=== PATIENT | male | born 1975 | race African-American/Black ===

== ENCOUNTER 2017-10-16 17:10 | Inpatient (IN) | payer OTHER ==
[2017-10-16 18:36] VITALS: BMI 31.8
--- NOTE | 2017-10-16 20:30 | HP ---
CIWA Score - CIWA Score Nausea/Vomitin-Mild Nausea/No Vomiting Muscle Tremors: 4-Moderate,w/Arms Extend Anxiety: 4-Mod. Anxious/Guarded Agitation: 3 Paroxysmal Sweats: 3 Orientation: 1-Uncertain about Date Tacttile Disturbances: 2-Mild Itch/Numbness/Burn Auditory Disturbances: 0-None Visual Disturbances: 0-None Headache: 3-Moderate CIWA-Ar Total Score: 21 Admission ROS BHS - HPI Chief Complaint: C/O WITHDRAWAL SX'S. SEEKING DETOX FOR ALCOHOLISM Allergies/Adverse Reactions: Allergies Allergy/AdvReac Type Severity Reaction Status Date / Time No Known Allergies Allergy Verified 10/16/17 19:14 History of Present Illness: 42 Y.O. MALE WITH LONG HX/O POLYSUBSTANCE DEPENDENCE HERE FOR DETOX FOR ALCOHOLISM. CLIENT IS KNOWN TO THIS PROGRAM. LAST HERE 2009. HE IS SELF REFERRED. REPORTS LONGEST CLEAN TIME 3 YEARS. DENIES SI/HI AND A/V HALLUCINATIONS. PMHX: DENIES MENTAL HEALTH: DENIES Exam Limitations: No Limitations - Ebola screening Have you traveled outside of the country in the last 21 days: No Have you had contact with anyone from an Ebola affected area: No Have you been sick,other than usual withdrawal symptoms: No Do you have a fever: No - Review of Systems Constitutional: Chills, Loss of Appetite, Night Sweats, Changes in sleep EENT: reports: No Symptoms Reported Respiratory: reports: No Symptoms reported Cardiac: reports: No Symptoms Reported GI: reports: Constipated, Nausea, Poor Appetite, Poor Fluid Intake, Abdominal cramping : reports: No Symptoms Reported Musculoskeletal: reports: No Symptoms Reported Integumentary: reports: No Symptoms Reported Neuro: reports: Headache Endocrine: reports: No Symptoms Reported Hematology: reports: No Symptoms Reported Psychiatric: reports: Anxious, Depressed Other Systems: Reviewed and Negative Patient History - Patient Medical History Hx Anemia: No Hx Asthma: No Hx Chronic Obstructive Pulmonary Disease (COPD): No Hx Cancer: No Hx Cardiac Disorders: No Hx Congestive Heart Failure: No Hx Hypertension: No Hx Hypercholesterolemia: No Hx Pacemaker: No HX Cerebrovascular Accident: No Hx Seizures: No Hx Dementia: No Hx Diabetes: No Hx Gastrointestinal Disorders: No Hx Liver Disease: No Hx Genitourinary Disorders: No Hx Sexually Transmitted Disorders: No Hx Renal Disease (ESRD): No Hx Thyroid Disease: No Hx Human Immunodeficiency Virus (HIV): No Hx Hepatitis C: No Hx Depression: No Hx Suicide Attempt: No Hx Bipolar Disorder: No Hx Schizophrenia: No Other Medical History: DENIES - Patient Surgical History Past Surgical History: No Hx Neurologic Surgery: No Hx Cataract Extraction: No Hx Cardiac Surgery: No Hx Lung Surgery: No Hx Breast Surgery: No Hx Breast Biopsy: No Hx Abdominal Surgery: No Hx Appendectomy: No Hx Cholecystectomy: No Hx Genitourinary Surgery: No Hx Section: No Hx Orthopedic Surgery: No Hx Hysterectomy: No Anesthesia Reaction: No - PPD History Previous Implant?: Yes Documented Results: Negative w/proof Implanted On Prior [facility] Admission?: Yes PPD to be Administered?: Yes - Smoking Cessation Smoking history: Current some day smoker Have you smoked in the past 12 months: Yes Aproximately how many cigarettes per day: 20 Cigars Per Day: 0 Hx Chewing Tobacco Use: No Initiated information on smoking cessation: Yes 'Breaking Loose' booklet given: 10/16/17 - Substance & Tx. History Hx Alcohol Use: Yes Hx Substance Use: Yes Substance Use Type: Alcohol, Cocaine, Heroin Hx Substance Use Treatment: Yes ([facility]) - Substances Abused Alcohol Route: Oral Frequency: Daily Amount used: 1/5 VODKA, 2 6 PACKS BEER Age of first use: 17 Date of Last Use: 10/16/17 Marijuana/Hashish Route: Smoking Frequency: Daily Amount used: $60 Age of first use: 17 Date of Last Use: 10/16/17 Cocaine Route: Inhalation Frequency: Daily Amount used: $100 Age of first use: 17 Date of Last Use: 10/16/17 Family Disease History - Family Disease History Family History: Denies Admission Physical Exam [facility] - Vital Signs Vital Signs: Vital Signs - 24 hr 10/16/17 18:34 Temperature 98.9 F Pulse Rate 103 H Respiratory 18 Rate Blood Pressure 139/83 - Physical General Appearance: Yes: Appropriately Dressed, Mild Distress, Tremorous, Sweating, Anxious HEENTM: Yes: EOMI, Normocephalic, Normal Voice, AUSTYN, Pharynx Normal Respiratory: Yes: Chest Non-Tender, Lungs Clear, Normal Breath Sounds, No Respiratory Distress, No Accessory Muscle Use Neck: Yes: No masses,lesions,Nodules, Trachea in good position Breast: Yes: Breast Exam Deferred Cardiology: Yes: Regular Rhythm, Regular Rate, S1, S2 Abdominal: Yes: Normal Bowel Sounds, Non Tender, Flat, Soft Genitourinary: Yes: Within Normal Limits Back: Yes: Normal Inspection Musculoskeletal: Yes: full range of Motion, Gait Steady Extremities: Yes: Normal Capillary Refill, Normal Range of Motion, Non-Tender, Tremors Neurological: Yes: Fully Oriented, Alert, Motor Strength 5/5 Integumentary: Yes: Normal Color, Warm, Moist Lymphatic: Yes: Within Normal Limits - Diagnostic (1) Alcohol dependence with uncomplicated withdrawal Current Visit: Yes Status: Acute (2) Cocaine abuse, uncomplicated Current Visit: Yes Status: Chronic (3) Cannabis abuse, uncomplicated Current Visit: Yes Status: Chronic (4) Nicotine dependence Current Visit: Yes Status: Chronic Qualifiers: Nicotine product type: cigarettes Substance use status: uncomplicated Qualified Code(s): F17.210 - Nicotine dependence, cigarettes, uncomplicated (5) Substance induced mood disorder Current Visit: Yes Status: Suspected (6) Recent bereavement Current Visit: Yes Status: Acute Comment: RECENTLY LOST Cleared for Admission [facility] - Detox or Rehab [facility] Level of Care: Medically Managed Detox Regimen/Protocol: Librium Claeared for Rehab Admission: No [facility] Breath Alcohol Content Breath Alcohol Content: 0 Urine Drug Screen - Results Drug Screen Negative: No Urine Drug Screen Results: KATINA-Cocaine
[2017-10-16] MEDS ORDERED: MAGNESIUM CITRATE 300 ML BOTTLE PO PRN (20:46)
[2017-10-16] MEDS ORDERED: LOPERAMIDE HCL 2 MG CAPSULE PO PRN (20:46)
[2017-10-16] MEDS ORDERED: P-EPHED 60MG/TRIPROLIDI 2.5MG TABLET PO PRN (20:46)
[2017-10-16] MEDS ORDERED: MENTHOL/PHENOL 1 EACH UD MM PRN (20:46)
[2017-10-16] MEDS ORDERED: MAGNESIUM HYDROX 2400MG/30ML ORAL SUSPENSION 30 ML CUP PO PRN (20:46)
[2017-10-16] MEDS ORDERED: chlordiazePOXIDE HCL 25 MG CAPSULE PO PRN (20:46)
[2017-10-16] MEDS ORDERED: ACETAMINOPHEN 325 MG TABLET (FP) PO PRN (20:46)
[2017-10-16] MEDS ORDERED: guaiFENesin/D-METHORPHAN HB 10 ML UNIT-DOSE CUPS PO PRN (20:46)
[2017-10-16] MEDS ORDERED: NICOTINE POLACRILEX 2 MG GUM BC PRN (20:46)
[2017-10-16] MEDS ORDERED: IBUPROFEN 400 MG TABLET (FP) PO PRN (20:46)
[2017-10-16] MEDS ORDERED: MAG HYDROX/AL HYDROX/SIMETH 30 ML UNIT-DOSE CUP PO PRN (20:46)
[2017-10-16] MEDS: THIAMINE HCL 100 MG TABLET (FP) PO SCH (22:16)
[2017-10-16] MEDS: chlordiazePOXIDE HCL 25 MG CAPSULE PO SCH (22:17)
[2017-10-16] MEDS: MELATONIN 5 MG TABLETS PO PRN (22:21)
[2017-10-16 22:43] LABS: URINE APPEARANCE SLCLOUDY; URINE BILIRUBIN NEGATIVE (<2.0 mg/dL); URINE COLOR DKYELLOW; URINE GLUCOSE (UA) NEGATIVE (NEGATIVE); URINE KETONE TRACE (NEGATIVE); URINE LEUK ESTERASE TRACE (NEGATIVE); URINE NITRITE NEGATIVE (NEGATIVE); URINE PROTEIN 1+ (NEGATIVE); URINE UROBILINOGEN 4.0 E.U/dl mg/dL (0.2-1.0)
[2017-10-16 22:57] LABS: URINE HYALINE CAST 8 /lpf; URINE MUCUS MANY
[2017-10-17] MEDS: chlordiazePOXIDE HCL 25 MG CAPSULE PO SCH ×4 (06:44→23:02)
[2017-10-17 09:36] LABS: ALK PHOS 73 U/L (45-117); ANION GAP 8 (8-16); BILIRUBIN,TOTAL 0.5 mg/dL (0.2-1.0); BLOOD UREA NITROGEN 13 mg/dL (7-18); CALCIUM 8.2 mg/dL (8.5-10.1); CHLORIDE 107 mmol/L (98-107); CO2 28 mmol/L (21-32); CREATININE 1.3 mg/dL (0.7-1.3); GLUCOSE,RANDOM 101 mg/dL (74-106); HEMATOCRIT 40.9 % (35.4-49); HEMOGLOBIN 13.3 GM/dL (11.7-16.9); MCH 27.1 pg (25.7-33.7); MCHC 32.5 g/dl (32.0-35.9); MEAN CELL VOLUME 83.4 fl (80-96); MEAN PLT VOLUME 7.8 fl (7.5-11.1); PLATELET COUNT 238 K/MM3 (134-434); POTASSIUM 3.8 mmol/L (3.5-5.1); RBC 4.91 M/mm3 (4.00-5.60); RDW 15.3 % (11.9-15.9); SGOT/AST 17 U/L (15-37); SGPT/ALT 18 U/L (12-78); SODIUM 143 mmol/L (136-145); WHITE BLOOD COUNT 7.4 K/mm3 (4.0-10.0)
--- NOTE | 2017-10-17 10:06 | EKG ---
Test Reason : Blood Pressure : / mmHG Vent. Rate : 082 BPM Atrial Rate : 082 BPM P-R Int : 180 ms QRS Dur : 094 ms QT Int : 410 ms P-R-T Axes : 079 036 054 degrees QTc Int : 479 ms NORMAL SINUS RHYTHM NORMAL ECG NO PREVIOUS ECGS AVAILABLE Confirmed by AZUL ELI, ALLISON ([id number]) on 10/17/2017 10:06:12 AM Referred By: Kade Dowling Confirmed By:ALLISON LIANG MD
--- NOTE | 2017-10-17 10:37 | CONSULT ---
[facility] Psychiatric Consult - Data Date of interview: 10/17/17 Admission source: [facility] Identifying data: Mr Wilburn is a 42 years old Black male, father of an 18 years old daughter, unemployed, living with family seeking detox treatment for alcohol, cocaine and cannabis Substance Abuse History: Reports history of alcohol, cocaine and marijuana use. Refer to addiction counselor's summary for further information Medical History: Unremarkable. Smokes cigarettes 1 ppd Psychiatric History: Denies history of previous psychiatric treatment. However, reports feeling very depressed due to recent of his . He was crying during the interview while narrating how of a heart attack in her sleep Physical/Sexual Abuse/Trauma History: Denies history of emotional, physical or sexual abuse as wel as DV relationship. Additional Comment: Patient was reluctant to provide legal history Mental Status Exam - Mental Status Exam Alert and Oriented to: Time, Place, Person Patient Appearance: Well Groomed Mood: Depressed Affect: Appropriate Patient Behavior: Cooperative Speech Pattern: Clear, Artificially Ventilated Thought Process: Intact, Goal Oriented Thought Disorder: Not Present Hallucinations: Denies Suicidal Ideation: Denies Homicidal Ideation: Denies Insight/Judgement: Fair Sleep: Poorly Appetite: Good Muscle strength/Tone: Normal Gait/Station: Normal Psychiatric Findings - Problem List ([place] 1, 2,3) (1) Substance induced mood disorder Current Visit: Yes Status: Acute (2) Substance-induced sleep disorder Current Visit: Yes Status: Acute (3) Alcohol dependence with uncomplicated withdrawal Current Visit: Yes Status: Acute (4) Cocaine dependence Current Visit: Yes Status: Acute (5) Cannabis dependence Current Visit: Yes Status: Acute (6) Nicotine dependence Current Visit: Yes Status: Chronic Qualifiers: Nicotine product type: cigarettes Substance use status: uncomplicated Qualified Code(s): F17.210 - Nicotine dependence, cigarettes, uncomplicated (7) Recent bereavement Current Visit: Yes Status: Acute Comment: RECENTLY LOST - Initial Treatment Plan Initial Treatment Plan: 1) Psychotherapy and grief counseling provided to patient. 2) Start Ambien 10 mg po HS prn for insomnia. Benefits vs Risks of medication discussed with patient and he agreed to try it. 3) Continue inpatient detoxification
[2017-10-17] MEDS: NICOTINE 21 MG/24 HOURS TOPICAL PATCH TD SCH (11:24)
[2017-10-17] MEDS: PRENATAL VITAMINS W/ FOLIC ACID TABLET (FP) PO SCH (11:24)
--- NOTE | 2017-10-17 12:04 | PN ---
S CIWA - CIWA Score Nausea/Vomitin Muscle Tremors: 3 Anxiety: 3 Agitation: 3 Paroxysmal Sweats: 1-Minimal Palms Moist Orientation: 0-Oriented Tacttile Disturbances: 1-Very Mild Itch/Numbness Auditory Disturbances: 1-Very Mild Visual Disturbances: 0-None Headache: 2-Mild CIWA-Ar Total Score: 17 BHS Progress Note (SOAP) Subjective: alert,irritable,anxious,interrupted sleep,tremor,pain in body Objective: 10/17/17 12:04 Vital Signs Temperature 97.2 F L 10/17/17 09:05 Pulse Rate 75 10/17/17 09:05 Respiratory Rate 16 10/17/17 09:05 Blood Pressure 136/65 10/17/17 09:05 O2 Sat by Pulse Oximetry (%) ekg nsr,normal ecg qt 410/479 Laboratory Last Values WBC 7.4 K/mm3 (4.0-10.0) 10/17/17 07:45 RBC 4.91 M/mm3 (4.00-5.60) 10/17/17 07:45 Hgb 13.3 GM/dL (11.7-16.9) 10/17/17 07:45 Hct 40.9 % (35.4-49) 10/17/17 07:45 MCV 83.4 fl (80-96) 10/17/17 07:45 MCH 27.1 pg (25.7-33.7) 10/17/17 07:45 MCHC 32.5 g/dl (32.0-35.9) 10/17/17 07:45 RDW 15.3 % (11.9-15.9) 10/17/17 07:45 Plt Count 238 K/MM3 (134-434) 10/17/17 07:45 MPV 7.8 fl (7.5-11.1) 10/17/17 07:45 Sodium 143 mmol/L (136-145) 10/17/17 07:45 Potassium 3.8 mmol/L (3.5-5.1) 10/17/17 07:45 Chloride 107 mmol/L (98-107) 10/17/17 07:45 Carbon Dioxide 28 mmol/L (21-32) 10/17/17 07:45 Anion Gap 8 (8-16) 10/17/17 07:45 BUN 13 mg/dL (7-18) 10/17/17 07:45 Creatinine 1.3 mg/dL (0.7-1.3) 10/17/17 07:45 Creat Clearance w eGFR > 60 (>60) 10/17/17 07:45 Random Glucose 101 mg/dL (74-106) 10/17/17 07:45 Calcium 8.2 mg/dL (8.5-10.1) L 10/17/17 07:45 Total Bilirubin 0.5 mg/dL (0.2-1.0) 10/17/17 07:45 AST 17 U/L (15-37) 10/17/17 07:45 ALT 18 U/L (12-78) 10/17/17 07:45 Alkaline Phosphatase 73 U/L (45-117) 10/17/17 07:45 Total Protein 6.0 g/dl (6.4-8.2) L 10/17/17 07:45 Albumin 3.0 g/dl (3.4-5.0) L 10/17/17 07:45 Urine Color Dkyellow 10/16/17 22:20 Urine Appearance Slcloudy 10/16/17 22:20 Urine pH 5.0 (5.0-8.0) 10/16/17 22:20 Ur Specific [place] 1.021 (1.001-1.035) 10/16/17 22:20 Urine Protein 1+ (NEGATIVE) H 10/16/17 22:20 Urine Glucose (UA) Negative (NEGATIVE) 10/16/17 22:20 Urine Ketones Trace (NEGATIVE) H 10/16/17 22:20 Urine Blood Negative (NEGATIVE) 10/16/17 22:20 Urine Nitrite Negative (NEGATIVE) 10/16/17 22:20 Urine Bilirubin Negative (<2.0 mg/dL) 10/16/17 22:20 Urine Urobilinogen 4.0 e.u/dl mg/dL (0.2-1.0) 10/16/17 22:20 Ur Leukocyte Esterase Trace (NEGATIVE) 10/16/17 22:20 Urine WBC (Auto) 11 /hpf (3-5) 10/16/17 22:20 Urine RBC (Auto) 2 /hpf (0-3) 10/16/17 22:20 Hyaline Casts 8 /lpf 10/16/17 22:20 Urine Mucus Many 10/16/17 22:20 Assessment: 10/17/17 12:06 withdrawal symptom Plan: continue detox,repeat ua
[2017-10-17] MEDS: THIAMINE HCL 100 MG TABLET (FP) PO SCH (23:01)
[2017-10-18] MEDS: chlordiazePOXIDE HCL 25 MG CAPSULE PO SCH ×3 (06:30→18:26)
--- NOTE | 2017-10-18 11:14 | PN ---
S CIWA - CIWA Score Nausea/Vomitin Muscle Tremors: 3 Anxiety: 3 Agitation: 2 Paroxysmal Sweats: 1-Minimal Palms Moist Orientation: 0-Oriented Tacttile Disturbances: 1-Very Mild Itch/Numbness Auditory Disturbances: 1-Very Mild Visual Disturbances: 0-None Headache: 2-Mild CIWA-Ar Total Score: 16 BHS Progress Note (SOAP) Subjective: ALERT,IRRITABLE,ANXIOUS,INTERRUPTED SLEEP,PAIN IN THE BODY Objective: 10/18/17 11:12 Vital Signs Temperature 97.9 F 10/18/17 09:13 Pulse Rate 83 10/18/17 09:13 Respiratory Rate 16 10/18/17 09:13 Blood Pressure 123/93 10/18/17 09:13 O2 Sat by Pulse Oximetry (%) Vital Signs Temperature 97.9 F 10/18/17 09:13 Pulse Rate 83 10/18/17 09:13 Respiratory Rate 16 10/18/17 09:13 Blood Pressure 123/93 10/18/17 09:13 O2 Sat by Pulse Oximetry (%) Laboratory Last Values WBC 7.4 K/mm3 (4.0-10.0) 10/17/17 07:45 RBC 4.91 M/mm3 (4.00-5.60) 10/17/17 07:45 Hgb 13.3 GM/dL (11.7-16.9) 10/17/17 07:45 Hct 40.9 % (35.4-49) 10/17/17 07:45 MCV 83.4 fl (80-96) 10/17/17 07:45 MCH 27.1 pg (25.7-33.7) 10/17/17 07:45 MCHC 32.5 g/dl (32.0-35.9) 10/17/17 07:45 RDW 15.3 % (11.9-15.9) 10/17/17 07:45 Plt Count 238 K/MM3 (134-434) 10/17/17 07:45 MPV 7.8 fl (7.5-11.1) 10/17/17 07:45 Sodium 143 mmol/L (136-145) 10/17/17 07:45 Potassium 3.8 mmol/L (3.5-5.1) 10/17/17 07:45 Chloride 107 mmol/L (98-107) 10/17/17 07:45 Carbon Dioxide 28 mmol/L (21-32) 10/17/17 07:45 Anion Gap 8 (8-16) 10/17/17 07:45 BUN 13 mg/dL (7-18) 10/17/17 07:45 Creatinine 1.3 mg/dL (0.7-1.3) 10/17/17 07:45 Creat Clearance w eGFR > 60 (>60) 10/17/17 07:45 Random Glucose 101 mg/dL (74-106) 10/17/17 07:45 Calcium 8.2 mg/dL (8.5-10.1) L 10/17/17 07:45 Total Bilirubin 0.5 mg/dL (0.2-1.0) 10/17/17 07:45 AST 17 U/L (15-37) 10/17/17 07:45 ALT 18 U/L (12-78) 10/17/17 07:45 Alkaline Phosphatase 73 U/L (45-117) 10/17/17 07:45 Total Protein 6.0 g/dl (6.4-8.2) L 10/17/17 07:45 Albumin 3.0 g/dl (3.4-5.0) L 10/17/17 07:45 Urine Color Dkyellow 10/16/17 22:20 Urine Appearance Slcloudy 10/16/17 22:20 Urine pH 5.0 (5.0-8.0) 10/16/17 22:20 Ur Specific [place] 1.021 (1.001-1.035) 10/16/17 22:20 Urine Protein 1+ (NEGATIVE) H 10/16/17 22:20 Urine Glucose (UA) Negative (NEGATIVE) 10/16/17 22:20 Urine Ketones Trace (NEGATIVE) H 10/16/17 22:20 Urine Blood Negative (NEGATIVE) 10/16/17 22:20 Urine Nitrite Negative (NEGATIVE) 10/16/17 22:20 Urine Bilirubin Negative (<2.0 mg/dL) 10/16/17 22:20 Urine Urobilinogen 4.0 e.u/dl mg/dL (0.2-1.0) 10/16/17 22:20 Ur Leukocyte Esterase Trace (NEGATIVE) 10/16/17 22:20 Urine WBC (Auto) 11 /hpf (3-5) 10/16/17 22:20 Urine RBC (Auto) 2 /hpf (0-3) 10/16/17 22:20 Hyaline Casts 8 /lpf 10/16/17 22:20 Urine Mucus Many 10/16/17 22:20 RPR Titer Nonreactive (NONREACTIVE) 10/17/17 07:45 Assessment: 10/18/17 11:13 WITHDRAWAL SYMPTOM Plan: CONTINUE DETOX,PSYCHIATRIC EVALUATION FOR INSOMNIA
[2017-10-18] MEDS: NICOTINE 21 MG/24 HOURS TOPICAL PATCH TD SCH (13:15)
[2017-10-18] MEDS: PRENATAL VITAMINS W/ FOLIC ACID TABLET (FP) PO SCH (13:15)
[2017-10-18] MEDS: hydrOXYzine PAMOATE 50 MG CAPSULE (FP) PO PRN (13:15)
[2017-10-18] MEDS: chlordiazePOXIDE 5 MG CAPSULE PO SCH (22:04)
[2017-10-18] MEDS: THIAMINE HCL 100 MG TABLET (FP) PO SCH (22:04)
[2017-10-18] MEDS: MELATONIN 5 MG TABLETS PO PRN (22:05)
[2017-10-19] MEDS: chlordiazePOXIDE 5 MG CAPSULE PO SCH ×3 (05:11→18:52)
--- NOTE | 2017-10-19 09:48 | PN ---
S Progress Note (SOAP) Subjective: ALERT,IRRITABLE,ANXIOUS,INTERRUPTED SLEEP Objective: 10/19/17 09:55 Vital Signs Temperature 97.2 F L 10/19/17 05:53 Pulse Rate 74 10/19/17 05:53 Respiratory Rate 18 10/19/17 05:53 Blood Pressure 148/98 10/19/17 05:53 O2 Sat by Pulse Oximetry (%) Assessment: 10/19/17 10:03 WITHDRAWAL SYMPTOM Plan: CONTINUE DETOX,DISCHARGE IN AM
[2017-10-19] MEDS ORDERED: cloNIDine HCL 0.1 MG TABLET PO ONE ×2 (10:08→22:00)
[2017-10-19] MEDS: CYCLOBENZAPRINE HCL 10 MG TABLET (FP) PO PRN ×3 (10:41→22:33)
[2017-10-19] MEDS: PRENATAL VITAMINS W/ FOLIC ACID TABLET (FP) PO SCH (10:41)
[2017-10-19] MEDS: NICOTINE 21 MG/24 HOURS TOPICAL PATCH TD SCH (10:42)
[2017-10-19] MEDS: hydrOXYzine PAMOATE 50 MG CAPSULE (FP) PO PRN ×2 (10:42→15:41)
--- NOTE | 2017-10-19 15:10 | PN ---
Psychiatric Progress Note Vital Signs: Vital Signs Period Temp Pulse Resp BP Sys/Flores Pulse Ox Last 24 Hr 96.8 F-98.2 F 74-89 18-20 138-149/96-110 Date of Session: 10/19/17 Chief Complaint:: "I can't sleep.I cry all the time." HPI: Patient admitted to for alcohol, cocaine, and cannabis dependence. ROS: Unremarkable Current Medications: Active Medications Generic Name Dose Route Start Last Admin Trade Name Freq PRN Reason Stop Dose Admin Acetaminophen 650 mg 10/16/17 20:46 Tylenol - PO Q4H PRN FEVER Al Hydroxide/Mg Hydroxide 30 ml 10/16/17 20:46 10/17/17 11:24 Mylanta Oral Suspension - PO 30 ml Q6H PRN Administration DYSPEPSIA Chlordiazepoxide HCl 15 mg 10/18/17 23:00 10/19/17 10:41 Librium - PO 10/19/17 17:01 15 mg [id number] QUINTEN Administration Chlordiazepoxide HCl 25 mg 10/16/17 20:46 Librium - PO 10/19/17 20:45 Q4H PRN WITHDRAWAL(CONT SUBST) Chlordiazepoxide HCl 10 mg 10/19/17 23:00 Librium - PO 10/20/17 17:01 [id number] QUINTEN Cyclobenzaprine HCl 10 mg 10/18/17 08:42 10/19/17 10:41 Flexeril - PO 10 mg TID PRN Administration MUSCLE SPASMS Eucalyptus/Menthol/Phenol/Sorbitol 1 each 10/16/17 20:46 Cepastat Lozenge - MM Q4H PRN SORE THROAT Guaifenesin 10 ml 10/16/17 20:46 Robitussin Dm - PO Q6H PRN COUGH Hydroxyzine Pamoate 50 mg 10/16/17 20:46 10/19/17 10:42 Vistaril - PO 50 mg Q4H PRN Administration AGITATION Ibuprofen 400 mg 10/16/17 20:46 Motrin - PO Q6H PRN PAIN LEVEL 4-6 Loperamide HCl 4 mg 10/16/17 20:46 Imodium - PO Q6H PRN DIARRHEA Magnesium Citrate 300 ml 10/16/17 20:46 Citroma - PO Q48H PRN CONSTIPATION Magnesium Hydroxide 30 ml 10/16/17 20:46 10/16/17 22:20 Milk Of Magnesia - PO 30 ml DAILY PRN Administration CONSTIPATION Melatonin 5 mg 10/16/17 22:00 10/16/17 22:21 Melatonin PO 5 mg HS PRN Administration INSOMNIA Nicotine 21 mg 10/17/17 10:00 10/19/17 10:42 Nicoderm Patch - TD Not Given DAILY QUINTEN Nicotine Polacrilex 2 mg 10/16/17 20:46 Nicorette Gum - BC Q2H PRN NICOTINE REPLACEMENT RX Multivit/Folic Acid/Iron 1 tab 10/17/17 10:00 10/19/17 10:41 Vitamins (Sjr) - PO 1 tab DAILY QUINTEN Administration Pseudoephedrine/Triprolidine 1 combo 10/16/17 20:46 Actifed - PO TID PRN NASAL CONGESTION Thiamine HCl 100 mg 10/16/17 22:00 10/18/17 22:04 Vitamin B1 - PO 100 mg HS QUINTEN Administration Zolpidem Tartrate 10 mg 10/19/17 22:00 Ambien - PO 10/22/17 21:59 HS PRN INSOMNIA Medication(s) Change(s): Yes. Will add ambien 10mg Provider note:: Senior Net Architect spoke to patient concerning psychiatric reconsultation.Patient seen by Dr. Hamilton for initial psychiatric consultation. Note read and appreciated. Pt. presents as sad but reports feeling "ok". Patient's last week. Patient reports difficulty sleeping and constant crying. Patient's protective factors are his 18 year old daughter and his 's family. Patient reports strong social support. Psychotherapy provided. Patient denies suicidal and homicidal ideation. Will order ambien 10mg for insomnia. Pt. made aware of the risk of parasomnia. Verbal consent given. Will continue to monitor. Total face to face time:: 25 Mental Status Exam - Mental Status Exam Alert and Oriented to: Time, Place, Person Cognitive Function: Good Patient Appearance: Well Groomed Mood: Sad Affect: Mood Congruent Patient Behavior: Cooperative Speech Pattern: Appropriate Voice Loudness: Normal Thought Process: Goal Oriented Thought Disorder: Not Present Hallucinations: Denies Suicidal Ideation: Denies Homicidal Ideation: Denies Insight/Judgement: Poor Sleep: Poorly Appetite: Fair Muscle strength/Tone: Normal Gait/Station: Normal Psychiatric Treatment Plan - Problem List (1) Alcohol dependence with uncomplicated withdrawal Current Visit: Yes (2) Cannabis dependence Current Visit: Yes (3) Cocaine dependence Current Visit: Yes (4) Recent bereavement Current Visit: Yes Comment: RECENTLY LOST (5) Substance induced mood disorder Current Visit: Yes (6) Substance-induced sleep disorder Current Visit: Yes (7) Nicotine dependence Current Visit: Yes Qualifiers: Nicotine product type: cigarettes Substance use status: uncomplicated Qualified Code(s): F17.210 - Nicotine dependence, cigarettes, uncomplicated
--- NOTE | 2017-10-19 21:56 | PN ---
[facility] Progress Note Note: Patient with asymtomatic elevated BP 161/118 one time dose clonidine 0.1 mg increase fluids continue to monitor
[2017-10-19] MEDS ORDERED: ZOLPIDEM TARTRATE 10 MG TABLET (PARK CARE ONLY) PO PRN (22:00)
[2017-10-19] MEDS: THIAMINE HCL 100 MG TABLET (FP) PO SCH (22:33)
[2017-10-19] MEDS: chlordiazePOXIDE HCL 10 MG CAPSULE PO SCH (22:33)
[2017-10-20] MEDS: chlordiazePOXIDE HCL 10 MG CAPSULE PO SCH ×2 (05:45→11:07)
--- NOTE | 2017-10-20 09:02 | PN ---
S Progress Note (SOAP) Subjective: ALERT,NO COMPLAINT Objective: 10/20/17 08:58 Vital Signs Temperature 97.2 F L 10/20/17 07:25 Pulse Rate 69 10/20/17 07:25 Respiratory Rate 20 10/20/17 07:25 Blood Pressure 160/99 10/20/17 07:25 O2 Sat by Pulse Oximetry (%) Assessment: 10/20/17 08:59 DETOX COMPLETED ,NO WITHDRAWAL SYMPTOM Plan: HYDROCHLOROTHIAZIDE 25 MGS PO DAILY ,FOLLOW UP WITH AFTER CARE PROGRAM ARRANGEMENT
--- NOTE | 2017-10-20 09:09 | DS ---
[facility] Detox Discharge Summary Admission Date: 10/16/17 Discharge Date: 10/20/17 - History Present History: Alcohol Dependence, Cocaine Dependence Additional Comments: FOLLOW UP WITH AFTER CARE PROGRAM ARRANGEMENT - Physical Exam Results Vital Signs: Vital Signs Temperature 97.2 F L 10/20/17 07:25 Pulse Rate 69 10/20/17 07:25 Respiratory Rate 20 10/20/17 07:25 Blood Pressure 160/99 10/20/17 07:25 O2 Sat by Pulse Oximetry (%) Pertinent Admission Physical Exam Findings: WITHDRAWAL SIGNS AND SYMPTOM Vital Signs Temperature 97.2 F L 10/20/17 07:25 Pulse Rate 69 10/20/17 07:25 Respiratory Rate 20 10/20/17 07:25 Blood Pressure 160/99 10/20/17 07:25 O2 Sat by Pulse Oximetry (%) Laboratory Last Values WBC 7.4 K/mm3 (4.0-10.0) 10/17/17 07:45 RBC 4.91 M/mm3 (4.00-5.60) 10/17/17 07:45 Hgb 13.3 GM/dL (11.7-16.9) 10/17/17 07:45 Hct 40.9 % (35.4-49) 10/17/17 07:45 MCV 83.4 fl (80-96) 10/17/17 07:45 MCH 27.1 pg (25.7-33.7) 10/17/17 07:45 MCHC 32.5 g/dl (32.0-35.9) 10/17/17 07:45 RDW 15.3 % (11.9-15.9) 10/17/17 07:45 Plt Count 238 K/MM3 (134-434) 10/17/17 07:45 MPV 7.8 fl (7.5-11.1) 10/17/17 07:45 Sodium 143 mmol/L (136-145) 10/17/17 07:45 Potassium 3.8 mmol/L (3.5-5.1) 10/17/17 07:45 Chloride 107 mmol/L (98-107) 10/17/17 07:45 Carbon Dioxide 28 mmol/L (21-32) 10/17/17 07:45 Anion Gap 8 (8-16) 10/17/17 07:45 BUN 13 mg/dL (7-18) 10/17/17 07:45 Creatinine 1.3 mg/dL (0.7-1.3) 10/17/17 07:45 Creat Clearance w eGFR > 60 (>60) 10/17/17 07:45 Random Glucose 101 mg/dL (74-106) 10/17/17 07:45 Calcium 8.2 mg/dL (8.5-10.1) L 10/17/17 07:45 Total Bilirubin 0.5 mg/dL (0.2-1.0) 10/17/17 07:45 AST 17 U/L (15-37) 10/17/17 07:45 ALT 18 U/L (12-78) 10/17/17 07:45 Alkaline Phosphatase 73 U/L (45-117) 10/17/17 07:45 Total Protein 6.0 g/dl (6.4-8.2) L 10/17/17 07:45 Albumin 3.0 g/dl (3.4-5.0) L 10/17/17 07:45 Urine Color Dkyellow 10/16/17 22:20 Urine Appearance Slcloudy 10/16/17 22:20 Urine pH 5.0 (5.0-8.0) 10/16/17 22:20 Ur Specific [place] 1.021 (1.001-1.035) 10/16/17 22:20 Urine Protein 1+ (NEGATIVE) H 10/16/17 22:20 Urine Glucose (UA) Negative (NEGATIVE) 10/16/17 22:20 Urine Ketones Trace (NEGATIVE) H 10/16/17 22:20 Urine Blood Negative (NEGATIVE) 10/16/17 22:20 Urine Nitrite Negative (NEGATIVE) 10/16/17 22:20 Urine Bilirubin Negative (<2.0 mg/dL) 10/16/17 22:20 Urine Urobilinogen 4.0 e.u/dl mg/dL (0.2-1.0) 10/16/17 22:20 Ur Leukocyte Esterase Trace (NEGATIVE) 10/16/17 22:20 Urine WBC (Auto) 11 /hpf (3-5) 10/16/17 22:20 Urine RBC (Auto) 2 /hpf (0-3) 10/16/17 22:20 Hyaline Casts 8 /lpf 10/16/17 22:20 Urine Mucus Many 10/16/17 22:20 RPR Titer Nonreactive (NONREACTIVE) 10/17/17 07:45 - Treatment Hospital Course: Detox Protocol Followed, Detoxed Safely, Responded well, Discharged Condition Good, Rehab Referral Accepted Patient has Accepted a Rehab Referral to: [facility] - Medication Discharge Medications: Ambulatory Orders NK [No Known Home Medication] 10/16/17 - Diagnosis (1) Alcohol dependence with uncomplicated withdrawal Current Visit: Yes Status: Acute (2) Cannabis abuse, uncomplicated Current Visit: Yes Status: Chronic (3) Cocaine abuse, uncomplicated Current Visit: Yes Status: Chronic (4) Nicotine dependence Current Visit: Yes Status: Chronic Qualifiers: Nicotine product type: cigarettes Substance use status: uncomplicated Qualified Code(s): F17.210 - Nicotine dependence, cigarettes, uncomplicated (5) Substance induced mood disorder Current Visit: Yes Status: Suspected (6) Insomnia Current Visit: Yes Status: Acute (7) Hypertension Current Visit: Yes Status: Acute - AMA Did Patient Leave Against Medical Advice: No
[2017-10-20] MEDS ORDERED: HYDROCHLOROTHIAZIDE 25 MG TABLET (FP) PO SCH (10:00)
[2017-10-20] MEDS: NICOTINE 21 MG/24 HOURS TOPICAL PATCH TD SCH (11:01)
[2017-10-20] MEDS: PRENATAL VITAMINS W/ FOLIC ACID TABLET (FP) PO SCH (11:01)
[2017-10-20 13:20] VITALS: BP 155/90; PULSE 120; TEMP 98.3
== END 2017-10-20 15:40 | disposition other institution (70) | DRG 774 ==
LOC: YASAS 17:10 → Y6N 19:53
PROVIDERS: ADMIT Surgery; ATTEND Surgery
PROC: HZ2ZZZZ Detoxification Services for Substance Abuse Treatment (ICD-10-PCS; principal; 2017-10-16)
DX: F10.230 Alcohol dependence with withdrawal, uncomplicated (principal); F14.20 Cocaine dependence, uncomplicated; F12.20 Cannabis dependence, uncomplicated; F17.210 Nicotine dependence, cigarettes, uncomplicated; F19.24 Other psychoactive substance dependence with psychoactive substance-induced mood disorder; F19.282 Other psychoactive substance dependence with psychoactive substance-induced sleep disorder; G47.00 Insomnia, unspecified; I10 Essential (primary) hypertension; Z63.4 Disappearance and death of family member
CPT/HCPCS: 36415; 80053; 81003; 81015; 85027; 86593; 93005; 93010; J0735

== ENCOUNTER 2017-10-20 15:58 | Inpatient (IN) | payer OTHER ==
[2017-10-20 17:01] VITALS: BP 156/98; PULSE 81; TEMP 99.1
--- NOTE | 2017-10-20 19:42 | PN ---
[facility] Progress Note Note: Patient left AMA.
--- NOTE | 2017-10-20 20:11 | PN ---
S Progress Note Note: received call from the nurse on duty that above named patient left AMA without being evaluated.according to the medical staff he was stable ,not danger for self,others.
== END 2017-10-20 19:30 | disposition left against medical advice (07) | DRG 770 ==
LOC: YASAS 15:58 → Y5N 16:00
PROVIDERS: ADMIT Psychiatry & Neurology Psychiatry; ATTEND Psychiatry & Neurology Psychiatry
PROC: HZ42ZZZ Group Counseling for Substance Abuse Treatment, Cognitive-Behavioral (ICD-10-PCS; principal; 2017-10-20)
DX: F10.20 Alcohol dependence, uncomplicated (principal); F14.10 Cocaine abuse, uncomplicated; F12.10 Cannabis abuse, uncomplicated; F17.210 Nicotine dependence, cigarettes, uncomplicated; F19.24 Other psychoactive substance dependence with psychoactive substance-induced mood disorder; Z63.4 Disappearance and death of family member

== ENCOUNTER 2018-02-10 16:03 | Inpatient (IN) | payer OTHER ==
[2018-02-10 17:30] VITALS: BMI 30.6
--- NOTE | 2018-02-10 19:29 | HP ---
CIWA Score - CIWA Score Nausea/Vomitin-Int. Nausea w/Dry Heave Muscle Tremors: 4-Moderate,w/Arms Extend Anxiety: 1-Mildly Anxious Agitation: 0-Normal Activity Paroxysmal Sweats: 1-Minimal Palms Moist Orientation: 0-Oriented Tacttile Disturbances: 1-Very Mild Itch/Numbness Auditory Disturbances: 0-None Visual Disturbances: 0-None Headache: 0-None Present CIWA-Ar Total Score: 11 Admission ROS BHS - HPI Allergies/Adverse Reactions: Allergies Allergy/AdvReac Type Severity Reaction Status Date / Time No Known Allergies Allergy Verified 02/10/18 19:13 History of Present Illness: patient here requesting detox fro etoh use , reports 4 pints /day & 2 x 6- packs first age of use 17, heavy since 24 , current intake daily since November after of his . If not drinking reports tremors, sweating , nausea , fatigue , + blackout while drinking 1 mo ago , + blackouts most recently yesterday ,+ falls while intoxicated, denies injuries to self. denies driving . Latest use this morning . Sober 18 years prior to current relapse . ankit 0.000 utox + tony , bzo, cocaine : since age 24 , reports 100$ / day cannabis _ occasional benzo - denies use denies other illicits . tobacco : 1 ppd , denies nrt pmhx : insomnia pshx : denies psych : denies legal : denies Exam Limitations: No Limitations - Ebola screening Have you traveled outside of the country in the last 21 days: No Have you had contact with anyone from an Ebola affected area: No Have you been sick,other than usual withdrawal symptoms: No - Review of Systems Constitutional: See HPI EENT: reports: No Symptoms Reported Respiratory: reports: No Symptoms reported Cardiac: reports: No Symptoms Reported GI: reports: No Symptoms Reported Musculoskeletal: reports: No Symptoms Reported Integumentary: reports: No Symptoms Reported Neuro: reports: See HPI, Headache, Numbness Endocrine: reports: No Symptoms Reported Hematology: reports: No Symptoms Reported Psychiatric: reports: Judgement Intact, Orientated x3, Anxious (tearful), Depressed Other Systems: Reviewed and Negative Patient History - Patient Medical History Hx Anemia: No Hx Asthma: No Hx Chronic Obstructive Pulmonary Disease (COPD): No Hx Cancer: No Hx Cardiac Disorders: No Hx Congestive Heart Failure: No Hx Hypertension: No Hx Hypercholesterolemia: No Hx Pacemaker: No HX Cerebrovascular Accident: No Hx Seizures: No Hx Dementia: No Hx Diabetes: No Hx Gastrointestinal Disorders: No Hx Liver Disease: No Hx Genitourinary Disorders: No Hx Sexually Transmitted Disorders: No Hx Renal Disease (ESRD): No Hx Thyroid Disease: No Hx Human Immunodeficiency Virus (HIV): No Hx Hepatitis C: No Hx Depression: No Hx Suicide Attempt: No Hx Bipolar Disorder: No Hx Schizophrenia: No - Patient Surgical History Past Surgical History: No Hx Neurologic Surgery: No Hx Cataract Extraction: No Hx Cardiac Surgery: No Hx Lung Surgery: No Hx Breast Surgery: No Hx Breast Biopsy: No Hx Abdominal Surgery: No Hx Appendectomy: No Hx Cholecystectomy: No Hx Genitourinary Surgery: No Hx Section: No Hx Orthopedic Surgery: No Hx Hysterectomy: No Anesthesia Reaction: No - PPD History Previous Implant?: Yes Documented Results: Negative w/proof Date: 10/18/17 - Smoking Cessation Smoking history: Current some day smoker Have you smoked in the past 12 months: Yes Aproximately how many cigarettes per day: 20 Cigars Per Day: 0 Hx Chewing Tobacco Use: No Initiated information on smoking cessation: Yes 'Breaking Loose' booklet given: 02/10/18 - Substances Abused Alcohol Route: Smoking Frequency: Daily Amount used: liquor- 4 pints, beer- 2 six pack Age of first use: 17 Date of Last Use: 02/10/18 Cocaine Route: Inhalation Frequency: Daily Amount used: 6 bags Age of first use: 26 Date of Last Use: 02/10/18 Family Disease History - Family Disease History Family History: Denies Admission Physical Exam [facility] - Vital Signs Vital Signs: Vital Signs - 24 hr 02/10/18 17:28 Temperature 97.8 F Pulse Rate 81 Respiratory 20 Rate Blood Pressure 143/85 - Physical General Appearance: Yes: Nourished, Appropriately Dressed, Mild Distress HEENTM: Yes: Within Normal Limits, EOMI, Hearing grossly Normal, Normal ENT Inspection, Normocephalic, Normal Voice, AUSTYN, Pharynx Normal, Tm's normal Respiratory: Yes: Chest Non-Tender, Lungs Clear, Normal Breath Sounds, Decreased Breath Sounds, No Respiratory Distress, No Accessory Muscle Use Neck: Yes: Within Normal Limits, No masses,lesions,Nodules, Trachea in good position Cardiology: Yes: Within Normal Limits, Regular Rhythm, Regular Rate Abdominal: Yes: Within Normal Limits, Normal Bowel Sounds, Non Tender, Flat, Soft Back: Yes: Within Normal Limits, Normal Inspection Musculoskeletal: Yes: Within Normal Limits, full range of Motion, Gait Steady, Pelvis Stable Extremities: Yes: Normal Capillary Refill, Normal Inspection, Normal Range of Motion, Non-Tender, Tremors Neurological: Yes: Within Normal Limits, Fully Oriented, Alert, Motor Strength 5 /5, Normal Mood/Affect, Normal Response Integumentary: Yes: Within Normal Limits, Normal Color, Dry, Warm BHS Breath Alcohol Content Breath Alcohol Content: 0 Urine Drug Screen - Results Drug Screen Negative: No Urine Drug Screen Results: TONY-Cocaine, BZO-Benzodiazepines
[2018-02-10] MEDS ORDERED: P-EPHED 60MG/TRIPROLIDI 2.5MG TABLET PO PRN (19:44)
[2018-02-10] MEDS ORDERED: LOPERAMIDE HCL 2 MG CAPSULE PO PRN (19:44)
[2018-02-10] MEDS ORDERED: MAG HYDROX/AL HYDROX/SIMETH 30 ML UNIT-DOSE CUP PO PRN (19:44)
[2018-02-10] MEDS ORDERED: IBUPROFEN 400 MG TABLET (FP) PO PRN (19:44)
[2018-02-10] MEDS ORDERED: MENTHOL/PHENOL 1 EACH UD MM PRN (19:44)
[2018-02-10] MEDS ORDERED: guaiFENesin/D-METHORPHAN HB 10 ML UNIT-DOSE CUPS PO PRN (19:44)
[2018-02-10] MEDS ORDERED: ACETAMINOPHEN 325 MG TABLET (FP) PO PRN (19:44)
[2018-02-10] MEDS ORDERED: MAGNESIUM HYDROX 2400MG/30ML ORAL SUSPENSION 30 ML CUP PO PRN (19:44)
[2018-02-10] MEDS ORDERED: MAGNESIUM CITRATE 300 ML BOTTLE PO PRN (19:44)
[2018-02-10] MEDS ORDERED: hydrOXYzine PAMOATE 25 MG CAPSULE (FP) PO PRN (19:44)
[2018-02-10] MEDS ORDERED: MELATONIN 5 MG TABLETS PO PRN (22:00)
[2018-02-10] MEDS: THIAMINE HCL 100 MG TABLET (FP) PO SCH (22:30)
[2018-02-10] MEDS: chlordiazePOXIDE HCL 25 MG CAPSULE PO SCH (22:31)
[2018-02-10] MEDS: traZODone HCL 50 MG TABLET (FP) PO PRN (22:31)
[2018-02-11 03:37] LABS: URINE APPEARANCE CLEAR; URINE BILIRUBIN NEGATIVE (<2.0 mg/dL); URINE COLOR YELLOW; URINE GLUCOSE (UA) NEGATIVE (NEGATIVE); URINE KETONE NEGATIVE (NEGATIVE); URINE LEUK ESTERASE NEGATIVE (NEGATIVE); URINE NITRITE NEGATIVE (NEGATIVE); URINE PROTEIN NEGATIVE (NEGATIVE)
[2018-02-11] MEDS: chlordiazePOXIDE HCL 25 MG CAPSULE PO SCH ×4 (06:00→22:28)
--- NOTE | 2018-02-11 08:01 | EKG ---
Test Reason : Blood Pressure : / mmHG Vent. Rate : 063 BPM Atrial Rate : 063 BPM P-R Int : 170 ms QRS Dur : 096 ms QT Int : 434 ms P-R-T Axes : 068 048 053 degrees QTc Int : 444 ms NORMAL SINUS RHYTHM WITH SINUS ARRHYTHMIA NORMAL ECG WHEN COMPARED WITH ECG OF 16-OCT-2017 21:44, NO SIGNIFICANT CHANGE WAS FOUND Confirmed by ALLISON LIANG MD ([id number]) on 02/11/2018 8:01:05 AM Referred By: Confirmed By:ALLISON LIANG MD
[2018-02-11 10:18] LABS: HEMATOCRIT 40.9 % (35.4-49); HEMOGLOBIN 13.2 GM/dL (11.7-16.9); MCH 27.9 pg (25.7-33.7); MCHC 32.2 g/dl (32.0-35.9); MEAN CELL VOLUME 86.6 fl (80-96); MEAN PLT VOLUME 8.3 fl (7.5-11.1); PLATELET COUNT 218 K/MM3 (134-434); RBC 4.72 M/mm3 (4.00-5.60); WHITE BLOOD COUNT 5.7 K/mm3 (4.0-10.0)
[2018-02-11 10:23] LABS: ALK PHOS 68 U/L (45-117); ANION GAP 7 MMOL/L (8-16); BILIRUBIN,TOTAL 0.5 mg/dL (0.2-1); BLOOD UREA NITROGEN 14 mg/dL (7-18); CALCIUM 8.9 mg/dL (8.5-10.1); CHLORIDE 108 mmol/L (98-107); CO2 26 mmol/L (21-32); CREATININE 1.1 mg/dL (0.55-1.3); GLUCOSE,RANDOM 100 mg/dL (74-106); POTASSIUM 4.2 mmol/L (3.5-5.1); SGOT/AST 17 U/L (15-37); SGPT/ALT 17 U/L (13-61); SODIUM 141 mmol/L (136-145)
[2018-02-11] MEDS: PRENATAL VITAMINS W/ FOLIC ACID TABLET (FP) PO SCH (10:31)
--- NOTE | 2018-02-11 11:41 | PN ---
S CIWA - CIWA Score Nausea/Vomitin-Mild Nausea/No Vomiting Muscle Tremors: None Anxiety: 1-Mildly Anxious Agitation: 0-Normal Activity Paroxysmal Sweats: No Perspiration Orientation: 0-Oriented Tacttile Disturbances: 0-None Auditory Disturbances: 0-None Visual Disturbances: 0-None Headache: 0-None Present CIWA-Ar Total Score: 2 BHS Progress Note (SOAP) Subjective: PATIENT PRESENTS WITH MILD ANXIETY, FEELING TIRED AND NAUSEA. Objective: 02/11/18 11:39 Vital Signs Temperature 97.5 F L 02/11/18 09:18 Pulse Rate 74 02/11/18 09:18 Respiratory Rate 18 02/11/18 09:18 Blood Pressure 145/96 02/11/18 09:18 O2 Sat by Pulse Oximetry (%) Laboratory Results - last 24 hr 02/10/18 02/11/18 02/11/18 23:28 07:00 07:00 WBC 5.7 RBC 4.72 Hgb 13.2 Hct 40.9 MCV 86.6 MCH 27.9 MCHC 32.2 RDW 16.0 H Plt Count 218 MPV 8.3 Sodium 141 Potassium 4.2 Chloride 108 H Carbon Dioxide 26 Anion Gap 7 L BUN 14 Creatinine 1.1 Creat Clearance w eGFR > 60 Random Glucose 100 Calcium 8.9 Total Bilirubin 0.5 AST 17 ALT 17 Alkaline Phosphatase 68 Total Protein 6.0 L Albumin 3.0 L Urine Color Yellow Urine Appearance Clear Urine pH 5.0 Ur Specific [place] 1.025 Urine Protein Negative Urine Glucose (UA) Negative Urine Ketones Negative Urine Blood Negative Urine Nitrite Negative Urine Bilirubin Negative Urine Urobilinogen 2.0 Ur Leukocyte Esterase Negative SKIN WARM AND DRY ALERT AND ORIENTED CAR S1S2 RESP CTA BL GI SOFT, BS+, NT PSYCH MILD ANXIETY Assessment: 02/11/18 11:40 WITHDRAWAL SYNDROME Plan: CONTINUE DETOX PER PROTOCOL ENCOURAGE ORAL FLUIDS
--- NOTE | 2018-02-11 15:52 | CONSULT ---
[facility] Psychiatric Consult - Data Date of interview: 02/11/18 Admission source: [facility] Identifying data: Patient is a 42 year old single male, without children, unemployed, and currently homeless. This is one of multiple admissions for patient. Pt. admitted to for alcohol and cocaine dependence. Substance Abuse History: - Smoking Cessation. Smoking history: Current some day smoker. Have you smoked in the past 12 months: Yes. Aproximately how many cigarettes per day: 20. Cigars Per Day: 0. Hx Chewing Tobacco Use: No. Initiated information on smoking cessation: Yes. 'Breaking Loose' booklet given : 02/10/18. - Substances Abused. Alcohol. Route: Smoking. Frequency: Daily. Amount used: liquor- 4 pints, beer- 2 six pack. Age of first use: 17. Date of Last Use: 02/10/18. Cocaine. Route: Inhalation. Frequency: Daily. Amount used: 6 bags. Age of first use: 26. Date of Last Use: 02/10/18 Medical History: denies. Psychiatric History: Patient presents as guarded and withdrawn. Patient denies h /o psychiatric hospitalization, outpatient care, and suicide attempt. Consultation completed bedside. Pt. reports h/o poor sleep. He received trazodone last with night favorable effect. Physical/Sexual Abuse/Trauma History: denies. Mental Status Exam - Mental Status Exam Alert and Oriented to: Time, Place, Person Cognitive Function: Good Patient Appearance: Well Groomed Mood: Withdrawn, Euthymic Affect: Mood Congruent Patient Behavior: Guarded, Cooperative Speech Pattern: Appropriate Voice Loudness: Moderately Soft/Quiet Thought Process: Intact, Goal Oriented Thought Disorder: Not Present Hallucinations: Denies Suicidal Ideation: Denies Homicidal Ideation: Denies Insight/Judgement: Poor Sleep: Fair Appetite: Fair Muscle strength/Tone: Normal Gait/Station: Other (Did not observe patient's gait.) Psychiatric Findings - Problem List ([place] 1, 2,3) (1) Alcohol dependence with uncomplicated withdrawal Current Visit: Yes Status: Acute (2) Cocaine dependence Current Visit: Yes Status: Acute (3) Substance induced mood disorder Current Visit: Yes Status: Acute (4) Substance-induced sleep disorder Current Visit: Yes Status: Acute - Initial Treatment Plan Initial Treatment Plan: Psychoeducation provided. Detoxification in progress. Trazodone 50mg qhs ordered by Dr. Green
[2018-02-11] MEDS: chlordiazePOXIDE HCL 25 MG CAPSULE PO PRN (18:39)
[2018-02-11] MEDS: THIAMINE HCL 100 MG TABLET (FP) PO SCH (22:27)
[2018-02-11] MEDS: traZODone HCL 50 MG TABLET (FP) PO PRN (22:28)
[2018-02-12] MEDS: chlordiazePOXIDE HCL 25 MG CAPSULE PO SCH ×3 (05:51→17:40)
[2018-02-12] MEDS: PRENATAL VITAMINS W/ FOLIC ACID TABLET (FP) PO SCH (11:12)
--- NOTE | 2018-02-12 11:16 | PN ---
S CIWA - CIWA Score Nausea/Vomitin Muscle Tremors: 2 Anxiety: 2 Agitation: 2 Paroxysmal Sweats: 2 Orientation: 0-Oriented Tacttile Disturbances: 2-Mild Itch/Numbness/Burn Auditory Disturbances: 0-None Visual Disturbances: 1-Very Mild Sensitivity Headache: 2-Mild CIWA-Ar Total Score: 15 S Progress Note (SOAP) Subjective: Tremors,interrupted sleep, muscle ache Objective: 02/12/18 11:15 Vital Signs 02/12/18 02/12/18 02/12/18 03:30 06:00 10:07 Temperature 97.2 F L 97.2 F L Pulse Rate 63 94 H Respiratory 18 20 18 Rate Blood Pressure 126/81 125/92 Laboratory Last Values WBC 5.7 K/mm3 (4.0-10.0) 02/11/18 07:00 RBC 4.72 M/mm3 (4.00-5.60) 02/11/18 07:00 Hgb 13.2 GM/dL (11.7-16.9) 02/11/18 07:00 Hct 40.9 % (35.4-49) 02/11/18 07:00 MCV 86.6 fl (80-96) 02/11/18 07:00 MCH 27.9 pg (25.7-33.7) 02/11/18 07:00 MCHC 32.2 g/dl (32.0-35.9) 02/11/18 07:00 RDW 16.0 % (11.9-15.9) H 02/11/18 07:00 Plt Count 218 K/MM3 (134-434) 02/11/18 07:00 MPV 8.3 fl (7.5-11.1) 02/11/18 07:00 Sodium 141 mmol/L (136-145) 02/11/18 07:00 Potassium 4.2 mmol/L (3.5-5.1) 02/11/18 07:00 Chloride 108 mmol/L (98-107) H 02/11/18 07:00 Carbon Dioxide 26 mmol/L (21-32) 02/11/18 07:00 Anion Gap 7 MMOL/L (8-16) L 02/11/18 07:00 BUN 14 mg/dL (7-18) 02/11/18 07:00 Creatinine 1.1 mg/dL (0.55-1.3) 02/11/18 07:00 Creat Clearance w eGFR > 60 (>60) 02/11/18 07:00 Random Glucose 100 mg/dL (74-106) 02/11/18 07:00 Calcium 8.9 mg/dL (8.5-10.1) 02/11/18 07:00 Total Bilirubin 0.5 mg/dL (0.2-1) 02/11/18 07:00 AST 17 U/L (15-37) 02/11/18 07:00 ALT 17 U/L (13-61) 02/11/18 07:00 Alkaline Phosphatase 68 U/L (45-117) 02/11/18 07:00 Total Protein 6.0 g/dl (6.4-8.2) L 02/11/18 07:00 Albumin 3.0 g/dl (3.4-5.0) L 02/11/18 07:00 Urine Color Yellow 02/10/18 23:28 Urine Appearance Clear 02/10/18 23:28 Urine pH 5.0 (5.0-8.0) 02/10/18 23:28 Ur Specific [place] 1.025 (1.001-1.035) 02/10/18 23:28 Urine Protein Negative (NEGATIVE) 02/10/18 23:28 Urine Glucose (UA) Negative (NEGATIVE) 02/10/18 23:28 Urine Ketones Negative (NEGATIVE) 02/10/18 23:28 Urine Blood Negative (NEGATIVE) 02/10/18 23:28 Urine Nitrite Negative (NEGATIVE) 02/10/18 23:28 Urine Bilirubin Negative (<2.0 mg/dL) 02/10/18 23:28 Urine Urobilinogen 2.0 mg/dL (0.2-1.0) 02/10/18 23:28 Ur Leukocyte Esterase Negative (NEGATIVE) 02/10/18 23:28 RPR Titer Nonreactive (NONREACTIVE) 02/11/18 07:00 Labs noted Assessment: 02/12/18 11:16 Withdrawal sx Plan: Continue detox
[2018-02-12] MEDS: THIAMINE HCL 100 MG TABLET (FP) PO SCH (22:08)
[2018-02-12] MEDS: traZODone HCL 50 MG TABLET (FP) PO PRN (22:08)
[2018-02-12] MEDS: chlordiazePOXIDE 5 MG CAPSULE PO SCH (22:08)
[2018-02-13] MEDS: chlordiazePOXIDE 5 MG CAPSULE PO SCH ×3 (05:19→17:51)
[2018-02-13] MEDS: PRENATAL VITAMINS W/ FOLIC ACID TABLET (FP) PO SCH (11:16)
[2018-02-13] MEDS: chlordiazePOXIDE HCL 25 MG CAPSULE PO PRN (13:19)
--- NOTE | 2018-02-13 14:47 | PN ---
S Progress Note (SOAP) Subjective: feeling better no tremor less sweat no gi distress sleep better at night Objective: 02/13/18 14:46 Vital Signs Temperature 98.4 F 02/13/18 09:40 Pulse Rate 74 02/13/18 09:40 Respiratory Rate 18 02/13/18 09:40 Blood Pressure 159/99 02/13/18 09:40 O2 Sat by Pulse Oximetry (%) Laboratory Last Values WBC 5.7 K/mm3 (4.0-10.0) 02/11/18 07:00 RBC 4.72 M/mm3 (4.00-5.60) 02/11/18 07:00 Hgb 13.2 GM/dL (11.7-16.9) 02/11/18 07:00 Hct 40.9 % (35.4-49) 02/11/18 07:00 MCV 86.6 fl (80-96) 02/11/18 07:00 MCH 27.9 pg (25.7-33.7) 02/11/18 07:00 MCHC 32.2 g/dl (32.0-35.9) 02/11/18 07:00 RDW 16.0 % (11.9-15.9) H 02/11/18 07:00 Plt Count 218 K/MM3 (134-434) 02/11/18 07:00 MPV 8.3 fl (7.5-11.1) 02/11/18 07:00 Sodium 141 mmol/L (136-145) 02/11/18 07:00 Potassium 4.2 mmol/L (3.5-5.1) 02/11/18 07:00 Chloride 108 mmol/L (98-107) H 02/11/18 07:00 Carbon Dioxide 26 mmol/L (21-32) 02/11/18 07:00 Anion Gap 7 MMOL/L (8-16) L 02/11/18 07:00 BUN 14 mg/dL (7-18) 02/11/18 07:00 Creatinine 1.1 mg/dL (0.55-1.3) 02/11/18 07:00 Creat Clearance w eGFR > 60 (>60) 02/11/18 07:00 Random Glucose 100 mg/dL (74-106) 02/11/18 07:00 Calcium 8.9 mg/dL (8.5-10.1) 02/11/18 07:00 Total Bilirubin 0.5 mg/dL (0.2-1) 02/11/18 07:00 AST 17 U/L (15-37) 02/11/18 07:00 ALT 17 U/L (13-61) 02/11/18 07:00 Alkaline Phosphatase 68 U/L (45-117) 02/11/18 07:00 Total Protein 6.0 g/dl (6.4-8.2) L 02/11/18 07:00 Albumin 3.0 g/dl (3.4-5.0) L 02/11/18 07:00 Urine Color Yellow 02/10/18 23:28 Urine Appearance Clear 02/10/18 23:28 Urine pH 5.0 (5.0-8.0) 02/10/18 23:28 Ur Specific [place] 1.025 (1.001-1.035) 02/10/18 23:28 Urine Protein Negative (NEGATIVE) 02/10/18 23:28 Urine Glucose (UA) Negative (NEGATIVE) 02/10/18 23:28 Urine Ketones Negative (NEGATIVE) 02/10/18 23:28 Urine Blood Negative (NEGATIVE) 02/10/18 23:28 Urine Nitrite Negative (NEGATIVE) 02/10/18 23:28 Urine Bilirubin Negative (<2.0 mg/dL) 02/10/18 23:28 Urine Urobilinogen 2.0 mg/dL (0.2-1.0) 02/10/18 23:28 Ur Leukocyte Esterase Negative (NEGATIVE) 02/10/18 23:28 RPR Titer Nonreactive (NONREACTIVE) 02/11/18 07:00 lab noted Assessment: 02/13/18 14:46 mild withdrawal sx 02/13/18 14:46 Plan: medically supervised detox
[2018-02-13] MEDS: traZODone HCL 50 MG TABLET (FP) PO PRN (22:59)
[2018-02-13] MEDS: THIAMINE HCL 100 MG TABLET (FP) PO SCH (22:59)
[2018-02-13] MEDS: chlordiazePOXIDE HCL 10 MG CAPSULE PO SCH (22:59)
[2018-02-14] MEDS: chlordiazePOXIDE HCL 10 MG CAPSULE PO SCH ×2 (06:04→10:52)
[2018-02-14] MEDS: PRENATAL VITAMINS W/ FOLIC ACID TABLET (FP) PO SCH (10:52)
[2018-02-14 13:55] VITALS: BP 138/78; PULSE 71; TEMP 97.9
--- NOTE | 2018-02-14 15:14 | DS ---
[facility] Detox Discharge Summary Admission Date: 02/10/18 Discharge Date: 02/14/18 - History Present History: Alcohol Dependence, Cocaine Dependence Additional Comments: Patient admitted with symptoms alcohol withdrawal. Alcohol use disorder began at age17. Cocaine use disorder began at age 26. - Physical Exam Results Vital Signs: Vital Signs Temperature 97.9 F 02/14/18 13:54 Pulse Rate 71 02/14/18 13:54 Respiratory Rate 18 02/14/18 13:54 Blood Pressure 138/78 02/14/18 13:54 O2 Sat by Pulse Oximetry (%) Pertinent Admission Physical Exam Findings: Admitted w/ alcohol withdrawal symptoms. Lab Results WBC 5.7 K/mm3 (4.0-10.0) 02/11/18 07:00 RBC 4.72 M/mm3 (4.00-5.60) 02/11/18 07:00 Hgb 13.2 GM/dL (11.7-16.9) 02/11/18 07:00 Hct 40.9 % (35.4-49) 02/11/18 07:00 MCV 86.6 fl (80-96) 02/11/18 07:00 MCHC 32.2 g/dl (32.0-35.9) 02/11/18 07:00 RDW 16.0 % (11.9-15.9) H 02/11/18 07:00 Plt Count 218 K/MM3 (134-434) 02/11/18 07:00 Sodium 141 mmol/L (136-145) 02/11/18 07:00 Potassium 4.2 mmol/L (3.5-5.1) 02/11/18 07:00 Chloride 108 mmol/L (98-107) H 02/11/18 07:00 Carbon Dioxide 26 mmol/L (21-32) 02/11/18 07:00 Anion Gap 7 MMOL/L (8-16) L 02/11/18 07:00 BUN 14 mg/dL (7-18) 02/11/18 07:00 Creatinine 1.1 mg/dL (0.55-1.3) 02/11/18 07:00 Random Glucose 100 mg/dL (74-106) 02/11/18 07:00 Calcium 8.9 mg/dL (8.5-10.1) 02/11/18 07:00 Labs reviewed. - Treatment Hospital Course: Detox Protocol Followed, Detoxed Safely, Responded well, Discharged Condition Good, Rehab Referral Accepted - Medication Discharge Medications: Ambulatory Orders traZODone HCL [Trazodone HCl] 50 mg PO HS 02/14/18 - AMA Did Patient Leave Against Medical Advice: No
== END 2018-02-14 12:10 | disposition other institution (70) | DRG 774 ==
LOC: YASAS 16:03 → Y6N 18:40
PROC: HZ2ZZZZ Detoxification Services for Substance Abuse Treatment (ICD-10-PCS; principal; 2018-02-10)
DX: F10.230 Alcohol dependence with withdrawal, uncomplicated (principal); F14.20 Cocaine dependence, uncomplicated; F12.10 Cannabis abuse, uncomplicated; F17.200 Nicotine dependence, unspecified, uncomplicated; F19.24 Other psychoactive substance dependence with psychoactive substance-induced mood disorder; F19.282 Other psychoactive substance dependence with psychoactive substance-induced sleep disorder; I10 Essential (primary) hypertension; G47.00 Insomnia, unspecified; Z63.4 Disappearance and death of family member
CPT/HCPCS: 36415; 80053; 81003; 85027; 86593; 93005; 93010

== ENCOUNTER 2018-02-14 14:35 | Inpatient (IN) | payer OTHER ==
[2018-02-14 14:53] VITALS: BMI 31.9
[2018-02-14] MEDS ORDERED: IBUPROFEN 400 MG TABLET (FP) PO PRN (15:34)
[2018-02-14] MEDS ORDERED: MENTHOL/PHENOL 1 EACH UD MM PRN (15:34)
[2018-02-14] MEDS ORDERED: guaiFENesin/D-METHORPHAN HB 10 ML UNIT-DOSE CUPS PO PRN (15:34)
[2018-02-14] MEDS ORDERED: MAGNESIUM CITRATE 300 ML BOTTLE PO PRN (15:34)
[2018-02-14] MEDS ORDERED: MAG HYDROX/AL HYDROX/SIMETH 30 ML UNIT-DOSE CUP PO PRN (15:34)
[2018-02-14] MEDS ORDERED: MAGNESIUM HYDROX 2400MG/30ML ORAL SUSPENSION 30 ML CUP PO PRN (15:34)
[2018-02-14] MEDS ORDERED: P-EPHED 60MG/TRIPROLIDI 2.5MG TABLET PO PRN (15:34)
[2018-02-14] MEDS ORDERED: hydrOXYzine PAMOATE 50 MG CAPSULE (FP) PO PRN (15:34)
[2018-02-14] MEDS ORDERED: ACETAMINOPHEN 325 MG TABLET (FP) PO PRN (15:34)
--- NOTE | 2018-02-14 15:37 | HP ---
[facility] Rehab Assess/Revision - Admission History Admitted to Rehab from: [facility] Date of Admission to Rehab: 02/14/18 - Vital signs Vital Signs: Vital Signs Period Temp Pulse Resp BP Sys/Flores Pulse Ox Last 24 Hr 97.7 F 75 18 136/98 - Findings Detox History & Physical reviewed: Yes Concur with findings: Yes Inpatient Rehab Admission - Initial Determination Are CD services needed?: Yes Free of communicable disease: Yes Not in need of hospitalization: Yes - Rehab Admission Criteria Patient is meeting Inpatient Rehab admission criteria:: Yes
[2018-02-14] MEDS ORDERED: THIAMINE HCL 100 MG TABLET (FP) PO SCH (22:00)
[2018-02-14] MEDS ORDERED: MELATONIN 5 MG TABLETS PO PRN (22:00)
--- NOTE | 2018-02-14 22:18 | PN ---
[facility] Progress Note Note: Psychiatry Attending's note (on-call) : Asked to enter order for trazodone 50 mg/hs. Chart reviewed. Mr Wilburn got transferred to [address] [place] [address] [place] [address]. Already on the medication.No report of adverse events. Patient requests continuity of that medication. As per nurse on duty. Patient aware of risk of priapism. Trazodone 50 mg po hs. Ordered.
[2018-02-14] MEDS ORDERED: traZODone HCL 50 MG TABLET (FP) PO SCH (22:30)
[2018-02-14] MEDS: LOPERAMIDE HCL 2 MG CAPSULE PO PRN (22:55)
--- NOTE | 2018-02-15 06:42 | HP ---
Psychiatrist Admission - Data Date of interview: 02/15/18 Admission source: [facility]N Identifying data: This is the second [facility] admission for this 42 years old single male, unemployed, homeless Medical History: Unremarkable. Smokes cigarettes 1 ppd Vital Signs: Vital Signs - 24 hr 02/14/18 02/15/18 14:50 03:30 Temperature 97.7 F Pulse Rate 75 Respiratory 18 18 Rate Blood Pressure 136/98 Allergies/Adverse Reactions: Allergies Allergy/AdvReac Type Severity Reaction Status Date / Time No Known Allergies Allergy Verified 02/10/18 19:13 Date of last physical exam: 02/10/18 Concur with the findings of this exam: Yes - Substance Abuse/Tx History Hx Alcohol Use: Yes Hx Substance Use: Yes Substance Use Type: Alcohol (Started drinking alcohol at age 17, consumes 4 pints of liquor & 2x 6pk of beer daily. Last drank on 02/10/18), Cocaine ( Started using cocaine at age 26, consumes 6 bags daily. Last used on 02/10/18), Marijuana (Started smoking marijuana at age 17, consumes 2 blunts daily. Last smoked on 02/09/18) Hx Substance Use Treatment: Yes (3 previous inpt detox & one inpt rehab admissions @ [facility]) Psychiatric Findings - Problem List ([place] 1, 2,3) (1) Alcohol dependence Current Visit: Yes Status: Acute (2) Cocaine dependence Current Visit: No Status: Acute (3) Cannabis dependence Current Visit: No Status: Acute (4) Nicotine dependence Current Visit: No Status: Chronic Qualifiers: Nicotine product type: cigarettes Substance use status: uncomplicated Qualified Code(s): F17.210 - Nicotine dependence, cigarettes, uncomplicated
[2018-02-15] MEDS: LOPERAMIDE HCL 2 MG CAPSULE PO PRN (07:17)
[2018-02-15 07:21] VITALS: BP 158/96; PULSE 65; TEMP 97.5
[2018-02-15] MEDS ORDERED: PRENATAL VITAMINS W/ FOLIC ACID TABLET (FP) PO SCH (10:00)
== END 2018-02-15 09:10 | disposition left against medical advice (07) | DRG 770 ==
LOC: YASAS 14:35 → Y3W 14:36
PROVIDERS: ADMIT Psychiatry & Neurology Psychiatry; ATTEND Psychiatry & Neurology Psychiatry
PROC: HZ42ZZZ Group Counseling for Substance Abuse Treatment, Cognitive-Behavioral (ICD-10-PCS; principal; 2018-02-14)
DX: F10.20 Alcohol dependence, uncomplicated (principal); F14.20 Cocaine dependence, uncomplicated; F12.20 Cannabis dependence, uncomplicated; F17.210 Nicotine dependence, cigarettes, uncomplicated; Z59.0 Homelessness

== ENCOUNTER 2018-04-08 16:30 | Inpatient (IN) | payer OTHER ==
[2018-04-08 17:34] VITALS: BMI 28.8
--- NOTE | 2018-04-08 19:06 | HP ---
CIWA Score Nausea/Vomitin-No Nausea/No Vomiting Muscle Tremors: 4-Moderate,w/Arms Extend Anxiety: 4-Mod. Anxious/Guarded Agitation: 4-Moderately Restless Paroxysmal Sweats: No Perspiration Orientation: 0-Oriented Tacttile Disturbances: 0-None Auditory Disturbances: 0-None Visual Disturbances: 0-None Headache: 0-None Present CIWA-Ar Total Score: 12 - Admission Criteria OASAS Guidelines: Admission for Medically Managed Detox: Requires at least one of the followin. CIWA greater than 12 2. Seizures within the past 24 hours 3. Delirium tremens within the past 24 hours 4. Hallucinations within the past 24 hours 5. Acute intervention needed for co occurring medical disorder 6. Acute intervention needed for co occurring psychiatric disorder 7. Severe withdrawal that cannot be handled at a lower level of care (continued vomiting, continued diarrhea, abnormal vital signs) requiring intravenous medication and/or fluids 8. Patient presents the following: CIWA greater than 12 Admission Criteria Met: Admission criteria met Admission ROS [facility] Chief Complaint: SEEKING DETOX FOR C/O WITHDRAWAL SX'S FROM ALCOHOL Allergies/Adverse Reactions: Allergies Allergy/AdvReac Type Severity Reaction Status Date / Time No Known Allergies Allergy Verified 04/08/18 18:19 History of Present Illness: 42 Y.O. MALE WITH HX/O ALCOHOLISM AND COCAINE DEPENDENCE HERE FOR DETOX. PRESENT WITH C/O WITHDRAWAL SXS, CIWA 12. CLIENT IS KNOWN TO THIS PROGRAM. LAST HERE 01/2018 WHERE HE COMPLETED DETOX AND REHAB. REPORTS IMMEDIATELY RELAPSING. SELF REFERRED. CLIENT REPORTS A 2 YEAR CLEAN HX. RELAPSING THIS PAST SEPTEMBER. DENIES SI/HI, AVH, SEIZURE D/O , BLACK OUTS. HE REPORTS HE IS HOME LESS. DENIES LEGALS PMHX- DENIES PSYCH- DENIES Exam Limitations: No Limitations - Ebola screening Have you traveled outside of the country in the last 21 days: No (N) Have you had contact with anyone from an Ebola affected area: No Have you been sick,other than usual withdrawal symptoms: No Do you have a fever: No - Review of Systems Constitutional: Chills, Loss of Appetite, Malaise, Changes in sleep EENT: reports: Dental Problems (MISSING TEETH) Respiratory: reports: No Symptoms reported Cardiac: reports: No Symptoms Reported GI: reports: Constipated, Poor Appetite, Poor Fluid Intake : reports: No Symptoms Reported Musculoskeletal: reports: Joint Pain Integumentary: reports: No Symptoms Reported Neuro: reports: No Symptoms reported Endocrine: reports: No Symptoms Reported Hematology: reports: No Symptoms Reported Psychiatric: reports: Anxious, Depressed Other Systems: Reviewed and Negative Patient History - Patient Medical History Hx Anemia: No Hx Asthma: No Hx Chronic Obstructive Pulmonary Disease (COPD): No Hx Cancer: No Hx Cardiac Disorders: No Hx Congestive Heart Failure: No Hx Hypertension: No Hx Hypercholesterolemia: No Hx Pacemaker: No HX Cerebrovascular Accident: No Hx Seizures: No Hx Dementia: No Hx Diabetes: No Hx Gastrointestinal Disorders: No Hx Liver Disease: No Hx Genitourinary Disorders: No Hx Sexually Transmitted Disorders: No Hx Renal Disease (ESRD): No Hx Thyroid Disease: No Hx Human Immunodeficiency Virus (HIV): No Hx Hepatitis C: No Hx Depression: No Hx Suicide Attempt: No Hx Bipolar Disorder: No Hx Schizophrenia: No Other Medical History: DENIES - Patient Surgical History Past Surgical History: No Hx Neurologic Surgery: No Hx Cataract Extraction: No Hx Cardiac Surgery: No Hx Lung Surgery: No Hx Breast Surgery: No Hx Breast Biopsy: No Hx Abdominal Surgery: No Hx Appendectomy: No Hx Cholecystectomy: No Hx Genitourinary Surgery: No Hx Section: No Hx Orthopedic Surgery: No Hx Hysterectomy: No Anesthesia Reaction: No - PPD History Previous Implant?: Yes Documented Results: Negative w/proof Implanted On Prior [facility] Admission?: Yes Date: 10/18/17 Results: 0 mm PPD to be Administered?: Yes - Smoking Cessation Smoking history: Current every day smoker Have you smoked in the past 12 months: Yes Aproximately how many cigarettes per day: 10 Cigars Per Day: 0 Hx Chewing Tobacco Use: No Initiated information on smoking cessation: Yes 'Breaking Loose' booklet given: 04/08/18 - Substance & Tx. History Hx Alcohol Use: Yes Hx Substance Use: Yes Substance Use Type: Alcohol, Cocaine Hx Substance Use Treatment: Yes ([facility]) - Substances Abused Cocaine Route: Inhalation Frequency: Daily Amount used: $20 Age of first use: 24 Date of Last Use: 04/07/18 Alcohol-vodka/beer Route: Oral Frequency: Daily Amount used: 2-3 pts./2-6 pks. Age of first use: 17 Date of Last Use: 04/08/18 Family Disease History - Family Disease History Family History: Denies Admission Physical Exam [facility] - Vital Signs Vital Signs: Vital Signs - 24 hr 04/08/18 17:29 Temperature 97.0 F L Pulse Rate 94 H Respiratory 18 Rate Blood Pressure 141/80 - Physical General Appearance: Yes: Disheveled, Other (MALODUROUS) HEENTM: Yes: EOMI, Normocephalic, Normal Voice, AUSTYN, Pharynx Normal, Other ( MISSING TEETH) Respiratory: Yes: Chest Non-Tender, Lungs Clear, Normal Breath Sounds, No Respiratory Distress, No Accessory Muscle Use Neck: Yes: No masses,lesions,Nodules, Supple, Trachea in good position Breast: Yes: Breast Exam Deferred Cardiology: Yes: Regular Rhythm, Regular Rate, S1, S2 Abdominal: Yes: Normal Bowel Sounds, Non Tender, Soft Genitourinary: Yes: Within Normal Limits (NO C/O) Back: Yes: Normal Inspection Musculoskeletal: Yes: full range of Motion, Gait Steady Extremities: Yes: Normal Capillary Refill, Normal Range of Motion, Non-Tender Neurological: Yes: Fully Oriented, Alert, Motor Strength 5/5, Depressed Affect Integumentary: Yes: Dry (FLAKY), Warm Lymphatic: Yes: Within Normal Limits - Diagnostic (1) Homeless Current Visit: Yes Status: Suspected (2) At risk for dehydration due to poor fluid intake Current Visit: Yes Status: Acute (3) Alcohol dependence with uncomplicated withdrawal Current Visit: Yes Status: Acute (4) Cocaine dependence Current Visit: Yes Status: Chronic Qualifiers: Substance use status: uncomplicated Qualified Code(s): F14.20 - Cocaine dependence, uncomplicated (5) Substance induced mood disorder Current Visit: Yes Status: Suspected (6) Substance-induced sleep disorder Current Visit: Yes Status: Suspected (7) Nicotine dependence Current Visit: Yes Status: Chronic Qualifiers: Nicotine product type: cigarettes Substance use status: uncomplicated Qualified Code(s): F17.210 - Nicotine dependence, cigarettes, uncomplicated Cleared for Admission [facility] - Detox or Rehab [facility] Level of Care: Medically Managed Detox Regimen/Protocol: Librium Claeared for Rehab Admission: No [facility] Breath Alcohol Content Breath Alcohol Content: 0.001 Urine Drug Screen - Results Drug Screen Negative: No Urine Drug Screen Results: KATINA-Cocaine, BAR-Barbiturates, BZO-Benzodiazepines
[2018-04-08] MEDS ORDERED: LOPERAMIDE HCL 2 MG CAPSULE PO PRN (19:15)
[2018-04-08] MEDS ORDERED: MENTHOL/PHENOL 1 EACH UD MM PRN (19:15)
[2018-04-08] MEDS ORDERED: hydrOXYzine PAMOATE 50 MG CAPSULE (FP) PO PRN (19:15)
[2018-04-08] MEDS ORDERED: guaiFENesin/D-METHORPHAN HB 10 ML UNIT-DOSE CUPS PO PRN (19:15)
[2018-04-08] MEDS ORDERED: MAGNESIUM HYDROX 2400MG/30ML ORAL SUSPENSION 30 ML CUP PO PRN (19:15)
[2018-04-08] MEDS ORDERED: ACETAMINOPHEN 325 MG TABLET (FP) PO PRN (19:15)
[2018-04-08] MEDS ORDERED: MAG HYDROX/AL HYDROX/SIMETH 30 ML UNIT-DOSE CUP PO PRN (19:15)
[2018-04-08] MEDS ORDERED: MAGNESIUM CITRATE 300 ML BOTTLE PO PRN (19:15)
[2018-04-08] MEDS ORDERED: NICOTINE POLACRILEX 2 MG GUM BUC PRN (19:15)
[2018-04-08] MEDS ORDERED: chlordiazePOXIDE HCL 25 MG CAPSULE PO PRN (19:15)
[2018-04-08] MEDS ORDERED: P-EPHED 60MG/TRIPROLIDI 2.5MG TABLET PO PRN (19:15)
[2018-04-08] MEDS ORDERED: MELATONIN 5 MG TABLETS PO PRN (22:00)
[2018-04-08] MEDS: chlordiazePOXIDE HCL 25 MG CAPSULE PO SCH (23:12)
[2018-04-08] MEDS: THIAMINE HCL 100 MG TABLET (FP) PO SCH (23:13)
[2018-04-09] MEDS: chlordiazePOXIDE HCL 25 MG CAPSULE PO SCH ×4 (05:39→22:02)
[2018-04-09] MEDS: IBUPROFEN 400 MG TABLET (FP) PO PRN (05:41)
[2018-04-09] MEDS: PRENATAL VITAMINS W/ FOLIC ACID TABLET (FP) PO SCH (10:37)
[2018-04-09] MEDS: NICOTINE 21 MG/24 HOURS TOPICAL PATCH TD SCH (10:38)
[2018-04-09 10:46] LABS: HEMATOCRIT 41.9 % (35.4-49); HEMOGLOBIN 13.1 GM/dL (11.7-16.9); MCH 26.9 pg (25.7-33.7); MCHC 31.3 g/dl (32.0-35.9); MEAN CELL VOLUME 85.9 fl (80-96); PLATELET COUNT 260 K/MM3 (134-434); RBC 4.88 M/mm3 (4.00-5.60); RDW 15.5 % (11.9-15.9); WHITE BLOOD COUNT 7.6 K/mm3 (4.0-10.0)
[2018-04-09 10:55] LABS: ALBUMIN 2.8 g/dl (3.4-5.0); ALK PHOS 84 U/L (45-117); ANION GAP 6 MMOL/L (8-16); BILIRUBIN,TOTAL 0.4 mg/dL (0.2-1); BLOOD UREA NITROGEN 17 mg/dL (7-18); CALCIUM 8.6 mg/dL (8.5-10.1); CHLORIDE 106 mmol/L (98-107); CO2 27 mmol/L (21-32); CREATININE 1.1 mg/dL (0.55-1.3); GLUCOSE,RANDOM 95 mg/dL (74-106); POTASSIUM 4.2 mmol/L (3.5-5.1); SGOT/AST 15 U/L (15-37); SGPT/ALT 14 U/L (13-61); SODIUM 139 mmol/L (136-145); TOT PROT 5.9 g/dl (6.4-8.2)
--- NOTE | 2018-04-09 12:00 | PN ---
S CIWA - CIWA Score Nausea/Vomitin Muscle Tremors: 2 Anxiety: 2 Agitation: 1-Slight > Activity Paroxysmal Sweats: 1-Minimal Palms Moist Orientation: 0-Oriented Tacttile Disturbances: 2-Mild Itch/Numbness/Burn Auditory Disturbances: 0-None Visual Disturbances: 0-None Headache: 2-Mild CIWA-Ar Total Score: 12 S Progress Note (SOAP) Subjective: Interrupted sleep, muscle weakness and lowback pain Objective: 04/09/18 11:59 Vital Signs 04/09/18 04/09/18 06:00 09:36 Temperature 97.9 F 98.0 F Pulse Rate 83 80 Respiratory 18 18 Rate Blood Pressure 128/89 134/92 Laboratory Last Values WBC 7.6 K/mm3 (4.0-10.0) 04/09/18 08:00 RBC 4.88 M/mm3 (4.00-5.60) 04/09/18 08:00 Hgb 13.1 GM/dL (11.7-16.9) 04/09/18 08:00 Hct 41.9 % (35.4-49) 04/09/18 08:00 MCV 85.9 fl (80-96) 04/09/18 08:00 MCH 26.9 pg (25.7-33.7) 04/09/18 08:00 MCHC 31.3 g/dl (32.0-35.9) L 04/09/18 08:00 RDW 15.5 % (11.9-15.9) 04/09/18 08:00 Plt Count 260 K/MM3 (134-434) 04/09/18 08:00 MPV 8.0 fl (7.5-11.1) 04/09/18 08:00 Sodium 139 mmol/L (136-145) 04/09/18 08:00 Potassium 4.2 mmol/L (3.5-5.1) 04/09/18 08:00 Chloride 106 mmol/L (98-107) 04/09/18 08:00 Carbon Dioxide 27 mmol/L (21-32) 04/09/18 08:00 Anion Gap 6 MMOL/L (8-16) L 04/09/18 08:00 BUN 17 mg/dL (7-18) 04/09/18 08:00 Creatinine 1.1 mg/dL (0.55-1.3) 04/09/18 08:00 Creat Clearance w eGFR > 60 (>60) 04/09/18 08:00 Random Glucose 95 mg/dL (74-106) 04/09/18 08:00 Calcium 8.6 mg/dL (8.5-10.1) 04/09/18 08:00 Total Bilirubin 0.4 mg/dL (0.2-1) 04/09/18 08:00 AST 15 U/L (15-37) 04/09/18 08:00 ALT 14 U/L (13-61) 04/09/18 08:00 Alkaline Phosphatase 84 U/L (45-117) 04/09/18 08:00 Total Protein 5.9 g/dl (6.4-8.2) L 04/09/18 08:00 Albumin 2.8 g/dl (3.4-5.0) L 04/09/18 08:00 RPR Titer Nonreactive (NONREACTIVE) 04/09/18 08:00 Labs noted Assessment: 04/09/18 11:59 Withdrawal sx Plan: Continue detox
--- NOTE | 2018-04-09 15:17 | CONSULT ---
[facility] Psychiatric Consult - Data Date of interview: 04/09/18 Admission source: [facility] Identifying data: This is one of multiple admissions to [facility] for this 42 y/ o AA male seeking detoxification treatment, on , for alcohol and cocaine dependence. Patient is , a father of one, domiciled, unemployed and supported on odd jobs. Substance Abuse History: Confirmed by patient in this sessiion. Details in current [facility] repport : Smoking history: Current every day smoker. Have you smoked in the past 12 months: Yes. Aproximately how many cigarettes per day: 10. Cigars Per Day: 0. Hx Chewing Tobacco Use: No. Initiated information on smoking cessation: Yes. 'Breaking Loose' booklet given: 04/08/18. - Substance & Tx. History. Hx Alcohol Use: Yes. Hx Substance Use: Yes. Substance Use Type : Alcohol, Cocaine. Hx Substance Use Treatment: Yes ([facility]). - Substances Abused. Cocaine. Route: Inhalation. Frequency: Daily. Amount used: $20. Age of first use: 24. Date of Last Use: 04/07/18. Alcohol-vodka/beer. Route: Oral. Frequency: Daily. Amount used: 2-3 pts./2-6 pks. Age of first use: 17. Date of Last Use: 04/08/18 Medical History: Patient endorses good general health. Psychiatric History: Patient denies. Physical/Sexual Abuse/Trauma History: Patient declines to discuss this domain. Mr Koch received bereavement counseling, on , after the sudden of (09/2017). Additional Comment: Urine Drug Screen Results: KATINA-Cocaine, BAR-Barbiturates, BZO-Benzodiazepines. Noted. Mental Status Exam - Mental Status Exam Alert and Oriented to: Time, Place, Person Cognitive Function: Good Patient Appearance: Well Groomed Mood: Withdrawn Affect: Appropriate, Normal Range Patient Behavior: Fatigued, Appropriate, Cooperative Speech Pattern: Clear Voice Loudness: Normal Thought Process: Goal Oriented Thought Disorder: Not Present Hallucinations: Denies Suicidal Ideation: Denies Homicidal Ideation: Denies Insight/Judgement: Poor Sleep: Poorly, Difficulty falling asleep Appetite: Good Muscle strength/Tone: Normal Gait/Station: Normal Psychiatric Findings - Problem List ([place] 1, 2,3) (1) Alcohol dependence with uncomplicated withdrawal Current Visit: Yes Status: Acute (2) Cocaine dependence Current Visit: Yes Status: Acute Qualifiers: Substance use status: uncomplicated Qualified Code(s): F14.20 - Cocaine dependence, uncomplicated (3) Nicotine dependence Current Visit: Yes Status: Acute Qualifiers: Nicotine product type: cigarettes Substance use status: uncomplicated Qualified Code(s): F17.210 - Nicotine dependence, cigarettes, uncomplicated (4) Substance induced mood disorder Current Visit: Yes Status: Acute (5) Insomnia Current Visit: Yes Status: Acute Qualifiers: Insomnia type: alcohol-induced Qualified Code(s): F10.982 - Alcohol use, unspecified with alcohol-induced sleep disorder - Initial Treatment Plan Initial Treatment Plan: Psychoeducation. Sleep hygiene. Detoxification in progress. Psychotherapy : group, occupational, supportive. Patient requests trazodone at bedtime. Ordered : trazodone 100 mg po hs. Risk of priapism is discussed with the patient. Instructed to alert MD/RN if occurrence of prolonged + painful erection. " I never had problems with trazodone ". Mr Koch consents (verbally) to treatment with trazodone. Observation.
[2018-04-09] MEDS: THIAMINE HCL 100 MG TABLET (FP) PO SCH (22:02)
[2018-04-09] MEDS: traZODone HCL 50 MG TABLET (FP) PO SCH (22:04)
[2018-04-10] MEDS: chlordiazePOXIDE HCL 25 MG CAPSULE PO SCH ×3 (05:49→18:08)
[2018-04-10] MEDS: IBUPROFEN 400 MG TABLET (FP) PO PRN (05:51)
[2018-04-10] MEDS: PRENATAL VITAMINS W/ FOLIC ACID TABLET (FP) PO SCH (11:32)
[2018-04-10] MEDS: NICOTINE 21 MG/24 HOURS TOPICAL PATCH TD SCH (11:32)
--- NOTE | 2018-04-10 13:39 | PN ---
[facility] CIWA - CIWA Score Nausea/Vomitin-No Nausea/No Vomiting Muscle Tremors: 3 Anxiety: 1-Mildly Anxious Agitation: 2 Paroxysmal Sweats: 1-Minimal Palms Moist Orientation: 0-Oriented Tacttile Disturbances: 1-Very Mild Itch/Numbness Auditory Disturbances: 1-Very Mild Visual Disturbances: 0-None Headache: 1-Very Mild CIWA-Ar Total Score: 10 S Progress Note (SOAP) Subjective: tremor sweat restlessness anxiety trouble sleep at night Objective: 04/10/18 13:36 Vital Signs Temperature 97.7 F 04/10/18 10:14 Pulse Rate 81 04/10/18 10:14 Respiratory Rate 20 04/10/18 10:14 Blood Pressure 153/94 04/10/18 10:14 O2 Sat by Pulse Oximetry (%) Laboratory Last Values WBC 7.6 K/mm3 (4.0-10.0) 04/09/18 08:00 RBC 4.88 M/mm3 (4.00-5.60) 04/09/18 08:00 Hgb 13.1 GM/dL (11.7-16.9) 04/09/18 08:00 Hct 41.9 % (35.4-49) 04/09/18 08:00 MCV 85.9 fl (80-96) 04/09/18 08:00 MCH 26.9 pg (25.7-33.7) 04/09/18 08:00 MCHC 31.3 g/dl (32.0-35.9) L 04/09/18 08:00 RDW 15.5 % (11.9-15.9) 04/09/18 08:00 Plt Count 260 K/MM3 (134-434) 04/09/18 08:00 MPV 8.0 fl (7.5-11.1) 04/09/18 08:00 Sodium 139 mmol/L (136-145) 04/09/18 08:00 Potassium 4.2 mmol/L (3.5-5.1) 04/09/18 08:00 Chloride 106 mmol/L (98-107) 04/09/18 08:00 Carbon Dioxide 27 mmol/L (21-32) 04/09/18 08:00 Anion Gap 6 MMOL/L (8-16) L 04/09/18 08:00 BUN 17 mg/dL (7-18) 04/09/18 08:00 Creatinine 1.1 mg/dL (0.55-1.3) 04/09/18 08:00 Creat Clearance w eGFR > 60 (>60) 04/09/18 08:00 Random Glucose 95 mg/dL (74-106) 04/09/18 08:00 Calcium 8.6 mg/dL (8.5-10.1) 04/09/18 08:00 Total Bilirubin 0.4 mg/dL (0.2-1) 04/09/18 08:00 AST 15 U/L (15-37) 04/09/18 08:00 ALT 14 U/L (13-61) 04/09/18 08:00 Alkaline Phosphatase 84 U/L (45-117) 04/09/18 08:00 Total Protein 5.9 g/dl (6.4-8.2) L 04/09/18 08:00 Albumin 2.8 g/dl (3.4-5.0) L 04/09/18 08:00 RPR Titer Nonreactive (NONREACTIVE) 04/09/18 08:00 lab noted Assessment: 04/10/18 13:37 withdrawal sx 04/10/18 13:38 hypertension Plan: continue detox amlodopine 5 mg po daily hold if systolic below 110
[2018-04-10] MEDS: amLODIPine BESYLATE 5 MG TABLET (FP) PO SCH (14:37)
[2018-04-10] MEDS: THIAMINE HCL 100 MG TABLET (FP) PO SCH (22:11)
[2018-04-10] MEDS: traZODone HCL 50 MG TABLET (FP) PO SCH (22:12)
[2018-04-10] MEDS: chlordiazePOXIDE 5 MG CAPSULE PO SCH (22:12)
[2018-04-11] MEDS: chlordiazePOXIDE 5 MG CAPSULE PO SCH ×3 (06:46→17:46)
[2018-04-11] MEDS: IBUPROFEN 400 MG TABLET (FP) PO PRN (06:47)
--- NOTE | 2018-04-11 09:41 | PN ---
[facility] Progress Note (SOAP) Subjective: sweats body aches headache Objective: 04/11/18 09:40 Vital Signs Temperature 98.1 F 04/11/18 09:26 Pulse Rate 77 04/11/18 09:26 Respiratory Rate 18 04/11/18 09:26 Blood Pressure 151/96 04/11/18 09:26 O2 Sat by Pulse Oximetry (%) aaox3 ambulating no acute distress Assessment: 04/11/18 09:41 withdrawal sx Plan: continue detox increase fluids motrin/tylenol prn d/c in am
[2018-04-11] MEDS: amLODIPine BESYLATE 5 MG TABLET (FP) PO SCH (10:28)
[2018-04-11] MEDS: PRENATAL VITAMINS W/ FOLIC ACID TABLET (FP) PO SCH (10:28)
[2018-04-11] MEDS: NICOTINE 21 MG/24 HOURS TOPICAL PATCH TD SCH (10:28)
[2018-04-11] MEDS: TOLNAFTATE 1% POWDER 45 GM POW TP SCH ×2 (14:04→22:21)
[2018-04-11 17:12] LABS: URINE APPEARANCE CLEAR; URINE BILIRUBIN NEGATIVE (<2.0 mg/dL); URINE COLOR STRAW; URINE GLUCOSE (UA) NEGATIVE (NEGATIVE); URINE KETONE NEGATIVE (NEGATIVE); URINE LEUK ESTERASE 2+ (NEGATIVE); URINE NITRITE NEGATIVE (NEGATIVE); URINE PROTEIN NEGATIVE (NEGATIVE); URINE UROBILINOGEN NEGATIVE mg/dL (0.2-1.0)
[2018-04-11] MEDS: THIAMINE HCL 100 MG TABLET (FP) PO SCH (22:17)
[2018-04-11] MEDS: traZODone HCL 50 MG TABLET (FP) PO SCH (22:18)
[2018-04-11] MEDS: chlordiazePOXIDE HCL 10 MG CAPSULE PO SCH (22:19)
--- NOTE | 2018-04-11 23:55 | EKG ---
Test Reason : Blood Pressure : / mmHG Vent. Rate : 085 BPM Atrial Rate : 085 BPM P-R Int : 172 ms QRS Dur : 098 ms QT Int : 354 ms P-R-T Axes : 076 043 028 degrees QTc Int : 421 ms NORMAL SINUS RHYTHM NONSPECIFIC T WAVE ABNORMALITY ABNORMAL ECG WHEN COMPARED WITH ECG OF 10-FEB-2018 20:43, T WAVE VARIATION Confirmed by FABRIZIO AC MD ([id number]) on 04/11/2018 11:54:34 PM Referred By: Confirmed By:FABRIZIO AC MD
[2018-04-12] MEDS: chlordiazePOXIDE HCL 10 MG CAPSULE PO SCH (06:58)
[2018-04-12 07:27] VITALS: BP 156/97; PULSE 74; TEMP 97.5
--- NOTE | 2018-04-12 08:37 | DS ---
[facility] Detox Discharge Summary Admission Date: 04/08/18 Discharge Date: 04/12/18 - History Present History: Alcohol Dependence, Cannabis Dependence, Cocaine Dependence - Physical Exam Results Vital Signs: Vital Signs Temperature 97.5 F L 04/12/18 07:26 Pulse Rate 74 04/12/18 07:26 Respiratory Rate 20 04/12/18 07:26 Blood Pressure 156/97 04/12/18 07:26 O2 Sat by Pulse Oximetry (%) - Treatment Hospital Course: Detox Protocol Followed, Detoxed Safely, Responded well, Discharged Condition Good, Rehab Referral Accepted - Medication Discharge Medications: Ambulatory Orders traZODone HCL [Trazodone HCl] 100 mg PO HS 02/14/18 - Diagnosis (1) Alcohol dependence with uncomplicated withdrawal Current Visit: Yes Status: Chronic (2) At risk for dehydration due to poor fluid intake Current Visit: Yes Status: Acute (3) Cocaine dependence Current Visit: Yes Status: Chronic Qualifiers: Substance use status: uncomplicated Qualified Code(s): F14.20 - Cocaine dependence, uncomplicated (4) Insomnia Current Visit: Yes Status: Acute Qualifiers: Insomnia type: alcohol-induced Qualified Code(s): F10.982 - Alcohol use, unspecified with alcohol-induced sleep disorder (5) Nicotine dependence Current Visit: Yes Status: Chronic Qualifiers: Nicotine product type: cigarettes Substance use status: uncomplicated Qualified Code(s): F17.210 - Nicotine dependence, cigarettes, uncomplicated (6) Substance induced mood disorder Current Visit: Yes Status: Acute (7) Substance-induced sleep disorder Current Visit: Yes Status: Suspected (8) Hypertension Current Visit: Yes Status: Acute Qualifiers: Hypertension type: essential hypertension Qualified Code(s): I10 - Essential (primary) hypertension (9) Cannabis abuse, uncomplicated Current Visit: Yes Status: Chronic (10) Substance induced mood disorder Current Visit: No Status: Suspected - AMA Did Patient Leave Against Medical Advice: No (refused inpatient rehab; referred to outpatient at [facility])
== END 2018-04-12 08:49 | disposition home or self-care (01) | DRG 774 ==
LOC: YASAS 16:30 → Y6N 19:25
PROC: HZ2ZZZZ Detoxification Services for Substance Abuse Treatment (ICD-10-PCS; principal; 2018-04-08)
DX: F10.230 Alcohol dependence with withdrawal, uncomplicated (principal); F14.20 Cocaine dependence, uncomplicated; F12.20 Cannabis dependence, uncomplicated; F17.210 Nicotine dependence, cigarettes, uncomplicated; F19.24 Other psychoactive substance dependence with psychoactive substance-induced mood disorder; F19.282 Other psychoactive substance dependence with psychoactive substance-induced sleep disorder; F10.282 Alcohol dependence with alcohol-induced sleep disorder; I10 Essential (primary) hypertension; Z91.89 Other specified personal risk factors, not elsewhere classified; Z59.0 Homelessness
CPT/HCPCS: 36415; 80053; 81003; 81015; 85027; 86593; 93005; 93010

== ENCOUNTER 2019-04-17 12:44 | Inpatient (IN) | payer OTHER ==
[2019-04-17 13:42] VITALS: BMI 29.2
--- NOTE | 2019-04-17 16:25 | HP ---
CIWA Score Nausea/Vomitin Muscle Tremors: 4-Moderate,w/Arms Extend Anxiety: 3 Agitation: 3 Paroxysmal Sweats: No Perspiration Orientation: 0-Oriented Tacttile Disturbances: 0-None Auditory Disturbances: 0-None Visual Disturbances: 0-None Headache: 0-None Present CIWA-Ar Total Score: 12 - Admission Criteria OASAS Guidelines: Admission for Medically Managed Detox: Requires at least one of the followin. CIWA greater than 12 2. Seizures within the past 24 hours 3. Delirium tremens within the past 24 hours 4. Hallucinations within the past 24 hours 5. Acute intervention needed for co occurring medical disorder 6. Acute intervention needed for co occurring psychiatric disorder 7. Severe withdrawal that cannot be handled at a lower level of care (continued vomiting, continued diarrhea, abnormal vital signs) requiring intravenous medication and/or fluids 8. Admitting History and Physical - Smoking History Smoking history: Current every day smoker Have you smoked in the past 12 months: Yes Aproximately how many cigarettes per day: 10 - Alcohol/Substance Use Hx Alcohol Use: Yes Admission [facility] Allergies/Adverse Reactions: Allergies Allergy/AdvReac Type Severity Reaction Status Date / Time No Known Allergies Allergy Verified 04/17/19 13:36 History of Present Illness: 43 y/o M with history of alcohol and cocaine abuse presenting to [facility] for detox as he wants to get his life right this time. He has been drinking for the past 20 years and cocaine for about 10-15 yrs. He drinks about a fifth of vodka and 2 6-packs daily and when he does not drink, he gets extremely fatigued, edgy , tremors, palpitations but denies any seizure withdrawals. He endorses multiple blackouts with one episode of fall resulting in head trauma resulting in ER visit and a negative workup. Last drink was this morning, 2 beers.He has gone through detox before with last one here in january of 2018. He has done short term and terminal [facility] with his last terminal [facility] being in 2016 with successful completion of 18 months with 6 months outpatient (this one was court mandated). last cause of relapse was due to his 's . Pt snorts 6 bags of cocaine daily denies any injection. last use was yesterday. Pt lost his job 2 weeks ago due to drinking and drug use. 1/2 PPD for about 20 years. PMH: none Psych : anxiety undiagnosed PSH: none PE: VS 98F, 111/60 mmHg, 91bpm, 20 Utox: Cocaine, Benzos CIWA : 12 General : anxious HEENT: PERRLA Lung: VBS b/l HEART:tachy,RRR no MRG Abdomen: +BS, NTND extremities: 2+ pulses neuro: grossly intact Plan: alcohol detox: ativan protocol Psych consult for anxiety - panic disorder - Ebola screening Have you traveled outside of the country in the last 21 days: No Have you had contact with anyone from an Ebola affected area: No Do you have a fever: No Patient History - Patient Medical History Hx Anemia: No Hx Asthma: No Hx Chronic Obstructive Pulmonary Disease (COPD): No Hx Cancer: No Hx Cardiac Disorders: No Hx Congestive Heart Failure: No Hx Hypertension: No Hx Hypercholesterolemia: No Hx Pacemaker: No HX Cerebrovascular Accident: No Hx Seizures: No Hx Dementia: No Hx Diabetes: No Hx Gastrointestinal Disorders: No Hx Liver Disease: No Hx Genitourinary Disorders: No Hx Sexually Transmitted Disorders: No Hx Renal Disease (ESRD): No Hx Thyroid Disease: No Hx Human Immunodeficiency Virus (HIV): No Hx Hepatitis C: No Hx Depression: No Hx Suicide Attempt: No Hx Bipolar Disorder: No Hx Schizophrenia: No - Patient Surgical History Past Surgical History: No Hx Neurologic Surgery: No Hx Cataract Extraction: No Hx Cardiac Surgery: No Hx Lung Surgery: No Hx Breast Surgery: No Hx Breast Biopsy: No Hx Abdominal Surgery: No Hx Appendectomy: No Hx Cholecystectomy: No Hx Genitourinary Surgery: No Hx Section: No Hx Orthopedic Surgery: No Hx Hysterectomy: No Anesthesia Reaction: No - PPD History Date: 10/18/17 Results: 0 mm - Smoking Cessation Smoking history: Current every day smoker Have you smoked in the past 12 months: Yes Aproximately how many cigarettes per day: 10 Cigars Per Day: 0 Hx Chewing Tobacco Use: No Initiated information on smoking cessation: Yes 'Breaking Loose' booklet given: 04/17/19 - Substances abused Alcohol Substance route: Oral Frequency: Daily Amount used: 5th of vodka Age of first use: 16 Date of last use: 04/17/19 Marijuana/Hashish Substance route: Smoking Frequency: Daily Amount used: 2 joints Age of first use: 16 Date of last use: 04/17/19 Cocaine Substance route: Inhalation Frequency: Daily Amount used: 6 bags Age of first use: 24 Date of last use: 04/16/19 Admission Physical Exam S - Vital Signs Vital Signs: Vital Signs - 24 hr 04/17/19 13:37 Temperature 98.0 F Pulse Rate 91 H Respiratory 20 Rate Blood Pressure 111/60 Cleared for Admission [facility] - Detox or Rehab [facility] Level of Care: Medically Supervised Breathalyzer - Breathalyzer Breathalyzer: 0 Urine Drug Screen - Test Device Lot number: [id number] Expiration date: 12/21/20 - Control Is test valid?: Yes - Results Drug screen NEGATIVE: No Urine drug screen results: KATINA-Cocaine, BZO-Benzodiazepines Inpatient Rehab Admission - Rehab Decision to Admit Inpatient rehab admission?: No
--- NOTE | 2019-04-17 17:08 | PN ---
Teaching Attending Note Name of Resident: Clare Mcghee ATTENDING PHYSICIAN STATEMENT I saw and evaluated the patient. I reviewed the resident's note and discussed the case with the resident. I agree with the resident's findings and plan as documented. SUBJECTIVE: 43yo with alcohol use disorder here for alcohol detox, also uses cocaine IH. Uses daily. OBJECTIVE: Vital Signs - 24 hr 04/17/19 13:37 Temperature 98.0 F Pulse Rate 91 H Respiratory 20 Rate Blood Pressure 111/60 CIWA 12 alert and oriented ASSESSMENT AND PLAN: alcohol use disorder- alcohol detox protocol- with raheel
[2019-04-17] MEDS ORDERED: IBUPROFEN 400 MG TABLET (FP) PO PRN (17:09)
[2019-04-17] MEDS ORDERED: MAGNESIUM HYDROX 2400MG/30ML ORAL SUSPENSION 30 ML CUP PO PRN (17:09)
[2019-04-17] MEDS ORDERED: METHOCARBAMOL 500 MG TABLET PO PRN (17:09)
[2019-04-17] MEDS ORDERED: LORazepam 1 MG TABLET PO PRN (17:09)
[2019-04-17] MEDS ORDERED: NICOTINE POLACRILEX 2 MG GUM BUC PRN (17:09)
[2019-04-17] MEDS ORDERED: MENTHOL/PHENOL 1 EACH UD MM PRN (17:09)
[2019-04-17] MEDS ORDERED: MAG HYDROX/AL HYDROX/SIMETH 30 ML UNIT-DOSE CUP PO PRN (17:09)
[2019-04-17] MEDS ORDERED: ACETAMINOPHEN 325 MG TABLET (FP) PO PRN ×2 (17:09)
[2019-04-17] MEDS ORDERED: BISMUTH SUBSALICYLATE 524 MG/30 ML UD PO PRN (17:09)
[2019-04-17] MEDS ORDERED: MELATONIN 5 MG TABLETS PO PRN (17:09)
[2019-04-17] MEDS ORDERED: MAGNESIUM CITRATE 300 ML BOTTLE PO PRN (17:09)
[2019-04-17] MEDS: LORazepam 2 MG TABLET PO SCH ×2 (18:05→22:39)
[2019-04-17] MEDS: hydrOXYzine PAMOATE 25 MG CAPSULE (FP) PO PRN (18:11)
[2019-04-17] MEDS ORDERED: traZODone HCL 50 MG TABLET (FP) PO ONE ×2 (19:37→22:00)
[2019-04-17] MEDS: THIAMINE HCL 100 MG TABLET (FP) PO SCH (22:39)
[2019-04-18] MEDS: LORazepam 2 MG TABLET PO SCH ×4 (05:39→22:20)
[2019-04-18 10:11] LABS: HEMATOCRIT 36.8 % (35.4-49); MCH 27.7 pg (25.7-33.7); MCHC 32.5 g/dl (32.0-35.9); MEAN CELL VOLUME 85.1 fl (80-96); MEAN PLT VOLUME 7.9 fl (7.5-11.1); PLATELET COUNT 244 K/MM3 (134-434); RBC 4.33 M/mm3 (4.00-5.60); RDW 16.4 % (11.9-15.9); WHITE BLOOD COUNT 6.7 K/mm3 (4.0-10.0)
[2019-04-18 10:22] LABS: ALBUMIN 2.8 g/dl (3.4-5.0); BILIRUBIN,TOTAL 0.3 mg/dL (0.2-1); BLOOD UREA NITROGEN 15.4 mg/dL (7-18); CALCIUM 8.4 mg/dL (8.5-10.1); CREATININE 1.3 mg/dL (0.55-1.3); POTASSIUM 4.4 mmol/L (3.5-5.1); TOT PROT 5.7 g/dl (6.4-8.2)
[2019-04-18] MEDS: NICOTINE 21 MG/24 HOURS TOPICAL PATCH TD SCH (10:25)
[2019-04-18] MEDS: PRENATAL VITAMINS W/ FOLIC ACID TABLET (FP) PO SCH (10:25)
--- NOTE | 2019-04-18 14:49 | PN ---
[facility] CIWA - CIWA Score Nausea/Vomitin-No Nausea/No Vomiting Muscle Tremors: 3 Anxiety: 3 Agitation: 1-Slight > Activity Paroxysmal Sweats: 2 Orientation: 0-Oriented Tacttile Disturbances: 1-Very Mild Itch/Numbness Auditory Disturbances: 1-Very Mild Visual Disturbances: 0-None Headache: 0-None Present CIWA-Ar Total Score: 11 S Progress Note (SOAP) Subjective: 43 years old male admitted on 04/17/19 for alcohol withdrawal sx management treated with ativan detox regimen ate breakfast resting on bed feeling tired limited conversation with staff Objective: 04/18/19 14:51 Vital Signs Temperature 98.0 F 04/18/19 09:22 Pulse Rate 88 04/18/19 09:22 Respiratory Rate 18 04/18/19 09:22 Blood Pressure 124/68 04/18/19 09:22 O2 Sat by Pulse Oximetry (%) Laboratory Last Values WBC 6.7 K/mm3 (4.0-10.0) 04/18/19 07:45 RBC 4.33 M/mm3 (4.00-5.60) 04/18/19 07:45 Hgb 12.0 GM/dL (11.7-16.9) 04/18/19 07:45 Hct 36.8 % (35.4-49) 04/18/19 07:45 MCV 85.1 fl (80-96) 04/18/19 07:45 MCH 27.7 pg (25.7-33.7) 04/18/19 07:45 MCHC 32.5 g/dl (32.0-35.9) 04/18/19 07:45 RDW 16.4 % (11.9-15.9) H 04/18/19 07:45 Plt Count 244 K/MM3 (134-434) 04/18/19 07:45 MPV 7.9 fl (7.5-11.1) 04/18/19 07:45 Sodium 142 mmol/L (136-145) 04/18/19 07:45 Potassium 4.4 mmol/L (3.5-5.1) 04/18/19 07:45 Chloride 110 mmol/L (98-107) H 04/18/19 07:45 Carbon Dioxide 29 mmol/L (21-32) 04/18/19 07:45 Anion Gap 3 MMOL/L (8-16) L 04/18/19 07:45 BUN 15.4 mg/dL (7-18) 04/18/19 07:45 Creatinine 1.3 mg/dL (0.55-1.3) 04/18/19 07:45 Est GFR (CKD-EPI)AfAm 78.00 04/18/19 07:45 Est GFR (CKD-EPI)NonAf 67.30 04/18/19 07:45 Random Glucose 95 mg/dL (74-106) 04/18/19 07:45 Calcium 8.4 mg/dL (8.5-10.1) L 04/18/19 07:45 Total Bilirubin 0.3 mg/dL (0.2-1) 04/18/19 07:45 AST 14 U/L (15-37) L 04/18/19 07:45 ALT 17 U/L (13-61) 04/18/19 07:45 Alkaline Phosphatase 82 U/L (45-117) 04/18/19 07:45 Total Protein 5.7 g/dl (6.4-8.2) L 04/18/19 07:45 Albumin 2.8 g/dl (3.4-5.0) L 04/18/19 07:45 RPR Titer Nonreactive (NONREACTIVE) 04/18/19 07:45 lab noted Assessment: 04/18/19 14:51 alcohol withdrawal sx Plan: continue ativan detox regimen
--- NOTE | 2019-04-18 16:00 | CONSULT ---
[facility] Psychiatric Consult - Data Date of interview: 04/18/19 Admission source: [facility] Identifying data: Readmission to [facility] for this 43 y/o AA male self- referred for detoxification (JAY issues : alcohol, cocaine). Interviewed at [address] [place] [address]. 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 Substance Abuse History: Discussed with the patient. Details in current [facility] report as follows : Smoking history: Current every day smoker. Have you smoked in the past 12 months: Yes. Aproximately how many cigarettes per day: 10. Cigars Per Day: 0. Hx Chewing Tobacco Use: No. Initiated information on smoking cessation: Yes. 'Breaking Loose' booklet given: 04/17/19. - Substances abused. Alcohol. Substance route: Oral. Frequency: Daily. Amount used: 5th of vodka. Age of first use: 16. Date of last use: 04/17/19. Marijuana/Hashish. Substance route: Smoking. Frequency: Daily. Amount used : 2 joints. Age of first use: 16. Date of last use: 04/17/19. Cocaine. Substance route: Inhalation. Frequency: Daily. Amount used: 6 bags. Age of first use: 24. Date of last use: 04/16/19 Medical History: Patient endorses good general health. Psychiatric History: Patient declares that he has been admitted to the psychiatric inpatient service at [facility] " for more than 40 times ". Unreliable historian. Mr Koch denies having a psychiatric diagnosis except for substance use disorder + insomnia. Last hospitalized at [facility] in January 2019. No psychiatric OPD affiliation for aftercare. Patient states thathe has been prescribed trazodone 50 mg/hs (primary care physician). Denies history of suicide attempts. Physical/Sexual Abuse/Trauma History: Patient denies. Additional Comment: Urine drug screen results: KATINA-Cocaine, BZO- Benzodiazepines. Noted. Mental Status Exam - Mental Status Exam Alert and Oriented to: Time, Place, Person Cognitive Function: Good Patient Appearance: Well Groomed Mood: Hopeful, Euthymic Affect: Appropriate, Normal Range Patient Behavior: Fatigued, Cooperative Speech Pattern: Clear Voice Loudness: Normal Thought Process: Intact, Goal Oriented Thought Disorder: Not Present Hallucinations: Denies Suicidal Ideation: Denies Homicidal Ideation: Denies Insight/Judgement: Poor Sleep: Poorly, Difficulty falling asleep Appetite: Good Gait/Station: Normal Psychiatric Findings - Problem List ([place] 1, 2,3) (1) Alcohol dependence with uncomplicated withdrawal Current Visit: Yes Status: Acute (2) Cannabis abuse, uncomplicated Current Visit: Yes Status: Chronic (3) Cocaine dependence Current Visit: Yes Status: Chronic Qualifiers: Substance use status: uncomplicated Qualified Code(s): F14.20 - Cocaine dependence, uncomplicated (4) Nicotine dependence Current Visit: Yes Status: Chronic Qualifiers: Nicotine product type: cigarettes Substance use status: uncomplicated Qualified Code(s): F17.210 - Nicotine dependence, cigarettes, uncomplicated (5) Insomnia Current Visit: Yes Status: Acute Qualifiers: Insomnia type: alcohol-induced Qualified Code(s): F10.982 - Alcohol use, unspecified with alcohol-induced sleep disorder - Initial Treatment Plan Initial Treatment Plan: Psychoeducation. Sleep hygiene. Detoxification. Trazodone 50 mg po hs (patient's request). Patient is made aware of risk of priapism. Gave verbal consent to MD. Gaming.
[2019-04-18] MEDS ORDERED: traZODone HCL 50 MG TABLET (FP) PO SCH (22:00)
[2019-04-18] MEDS: THIAMINE HCL 100 MG TABLET (FP) PO SCH (22:20)
[2019-04-19] MEDS: LORazepam 1 MG TABLET PO SCH ×2 (06:10→10:47)
[2019-04-19] MEDS: hydrOXYzine PAMOATE 25 MG CAPSULE (FP) PO PRN (06:13)
[2019-04-19 09:10] VITALS: BP 162/97; PULSE 91; TEMP 98.5
--- NOTE | 2019-04-19 09:30 | PN ---
[facility] CIWA - CIWA Score Nausea/Vomitin-Mild Nausea/No Vomiting Muscle Tremors: 3 Anxiety: 2 Agitation: 1-Slight > Activity Paroxysmal Sweats: 1-Minimal Palms Moist Orientation: 0-Oriented Tacttile Disturbances: 1-Very Mild Itch/Numbness Auditory Disturbances: 0-None Visual Disturbances: 0-None Headache: 1-Very Mild CIWA-Ar Total Score: 10 S Progress Note (SOAP) Subjective: 43 years old male admitted on 04/17/19 for alcohol withdrawal sx management treated with ativan detox regimen patient tolerated well ate breakfast resting on bed discuss aftercare with staff encourage to attend groups and meetings Objective: 04/19/19 09:30 Vital Signs Temperature 98.5 F 04/19/19 09:08 Pulse Rate 91 H 04/19/19 09:08 Respiratory Rate 20 04/19/19 09:08 Blood Pressure 162/97 04/19/19 09:08 O2 Sat by Pulse Oximetry (%) Laboratory Last Values WBC 6.7 K/mm3 (4.0-10.0) 04/18/19 07:45 RBC 4.33 M/mm3 (4.00-5.60) 04/18/19 07:45 Hgb 12.0 GM/dL (11.7-16.9) 04/18/19 07:45 Hct 36.8 % (35.4-49) 04/18/19 07:45 MCV 85.1 fl (80-96) 04/18/19 07:45 MCH 27.7 pg (25.7-33.7) 04/18/19 07:45 MCHC 32.5 g/dl (32.0-35.9) 04/18/19 07:45 RDW 16.4 % (11.9-15.9) H 04/18/19 07:45 Plt Count 244 K/MM3 (134-434) 04/18/19 07:45 MPV 7.9 fl (7.5-11.1) 04/18/19 07:45 Sodium 142 mmol/L (136-145) 04/18/19 07:45 Potassium 4.4 mmol/L (3.5-5.1) 04/18/19 07:45 Chloride 110 mmol/L (98-107) H 04/18/19 07:45 Carbon Dioxide 29 mmol/L (21-32) 04/18/19 07:45 Anion Gap 3 MMOL/L (8-16) L 04/18/19 07:45 BUN 15.4 mg/dL (7-18) 04/18/19 07:45 Creatinine 1.3 mg/dL (0.55-1.3) 04/18/19 07:45 Est GFR (CKD-EPI)AfAm 78.00 04/18/19 07:45 Est GFR (CKD-EPI)NonAf 67.30 04/18/19 07:45 Random Glucose 95 mg/dL (74-106) 04/18/19 07:45 Calcium 8.4 mg/dL (8.5-10.1) L 04/18/19 07:45 Total Bilirubin 0.3 mg/dL (0.2-1) 04/18/19 07:45 AST 14 U/L (15-37) L 04/18/19 07:45 ALT 17 U/L (13-61) 04/18/19 07:45 Alkaline Phosphatase 82 U/L (45-117) 04/18/19 07:45 Total Protein 5.7 g/dl (6.4-8.2) L 04/18/19 07:45 Albumin 2.8 g/dl (3.4-5.0) L 04/18/19 07:45 RPR Titer Nonreactive (NONREACTIVE) 04/18/19 07:45 lab noted 04/19/19 09:32 long history of hypertension begin amlodipine 10 mg po today and clonidine 0.1mg po q6h prn 04/19/19 09:33 Assessment: 04/19/19 09:34 alcohol withdrawal sx management hypertension Plan: continue ativan detox regimen amlodipine and clonidine for bp management
[2019-04-19] MEDS ORDERED: cloNIDine HCL 0.1 MG TABLET PO PRN (09:31)
[2019-04-19] MEDS ORDERED: amLODIPine BESYLATE 10 MG TABLET (FP) PO SCH (10:00)
[2019-04-19] MEDS: NICOTINE 21 MG/24 HOURS TOPICAL PATCH TD SCH (10:47)
[2019-04-19] MEDS: PRENATAL VITAMINS W/ FOLIC ACID TABLET (FP) PO SCH (10:47)
--- NOTE | 2019-04-19 10:56 | DS ---
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 his antihypertensive medications from the pharmacy and follow up with his primary care provider - Physical Exam Results Vital Signs: Vital Signs Temperature 98.5 F 04/19/19 09:08 Pulse Rate 91 H 04/19/19 09:08 Respiratory Rate 20 04/19/19 09:08 Blood Pressure 162/97 04/19/19 09:08 O2 Sat by Pulse Oximetry (%) Pertinent Admission Physical Exam Findings: alcohol withdrawal sx Laboratory Last Values WBC 6.7 K/mm3 (4.0-10.0) 04/18/19 07:45 RBC 4.33 M/mm3 (4.00-5.60) 04/18/19 07:45 Hgb 12.0 GM/dL (11.7-16.9) 04/18/19 07:45 Hct 36.8 % (35.4-49) 04/18/19 07:45 MCV 85.1 fl (80-96) 04/18/19 07:45 MCH 27.7 pg (25.7-33.7) 04/18/19 07:45 MCHC 32.5 g/dl (32.0-35.9) 04/18/19 07:45 RDW 16.4 % (11.9-15.9) H 04/18/19 07:45 Plt Count 244 K/MM3 (134-434) 04/18/19 07:45 MPV 7.9 fl (7.5-11.1) 04/18/19 07:45 Sodium 142 mmol/L (136-145) 04/18/19 07:45 Potassium 4.4 mmol/L (3.5-5.1) 04/18/19 07:45 Chloride 110 mmol/L (98-107) H 04/18/19 07:45 Carbon Dioxide 29 mmol/L (21-32) 04/18/19 07:45 Anion Gap 3 MMOL/L (8-16) L 04/18/19 07:45 BUN 15.4 mg/dL (7-18) 04/18/19 07:45 Creatinine 1.3 mg/dL (0.55-1.3) 04/18/19 07:45 Est GFR (CKD-EPI)AfAm 78.00 04/18/19 07:45 Est GFR (CKD-EPI)NonAf 67.30 04/18/19 07:45 Random Glucose 95 mg/dL (74-106) 04/18/19 07:45 Calcium 8.4 mg/dL (8.5-10.1) L 04/18/19 07:45 Total Bilirubin 0.3 mg/dL (0.2-1) 04/18/19 07:45 AST 14 U/L (15-37) L 04/18/19 07:45 ALT 17 U/L (13-61) 04/18/19 07:45 Alkaline Phosphatase 82 U/L (45-117) 04/18/19 07:45 Total Protein 5.7 g/dl (6.4-8.2) L 04/18/19 07:45 Albumin 2.8 g/dl (3.4-5.0) L 04/18/19 07:45 RPR Titer Nonreactive (NONREACTIVE) 04/18/19 07:45 lab noted - Treatment Hospital Course: Detox Protocol Followed, Detoxed Safely, Responded well, Discharged Condition Good, Rehab Referral Accepted Patient has Accepted a Rehab Referral to: community support approach - Medication Discharge Medications: Ambulatory Orders traZODone HCL [Trazodone HCl] 100 mg PO HS 02/14/18 Amlodipine Besylate [Norvasc -] 10 mg PO DAILY #30 tablet 04/19/19 - Diagnosis (1) Alcohol dependence with uncomplicated withdrawal Current Visit: Yes Status: Acute (2) Nicotine dependence Current Visit: Yes Status: Acute Qualifiers: Nicotine product type: cigarettes Substance use status: in withdrawal Qualified Code(s): F17.213 - Nicotine dependence, cigarettes, with withdrawal (3) Hypertension Current Visit: Yes Status: Acute Qualifiers: Hypertension type: essential hypertension Qualified Code(s): I10 - Essential (primary) hypertension (4) Substance induced mood disorder Current Visit: Yes Status: Suspected - AMA Did Patient Leave Against Medical Advice: No CIWA Score - CIWA Score Nausea/Vomitin-No Nausea/No Vomiting Muscle Tremors: 2 Anxiety: 1-Mildly Anxious Agitation: 1-Slight > Activity Paroxysmal Sweats: No Perspiration Orientation: 0-Oriented Tacttile Disturbances: 0-None Auditory Disturbances: 0-None Visual Disturbances: 0-None Headache: 1-Very Mild CIWA-Ar Total Score: 5
[2019-04-20] MEDS ORDERED: LORazepam 0.5 MG TABLET PO PRN
[2019-04-20] MEDS ORDERED: LORazepam 0.5 MG TABLET PO SCH (05:00)
[2019-04-21] MEDS ORDERED: LORazepam 0.5 MG TABLET PO ONE (05:00)
== END 2019-04-19 11:31 | disposition home or self-care (01) | DRG 774 ==
LOC: YASAS 12:44 → Y3N 17:23
PROVIDERS: ADMIT Allergy & Immunology; ATTEND Allergy & Immunology
PROC: HZ2ZZZZ Detoxification Services for Substance Abuse Treatment (ICD-10-PCS; principal; 2019-04-17)
DX: F10.230 Alcohol dependence with withdrawal, uncomplicated (principal); F13.20 Sedative, hypnotic or anxiolytic dependence, uncomplicated; F14.20 Cocaine dependence, uncomplicated; F12.10 Cannabis abuse, uncomplicated; F17.210 Nicotine dependence, cigarettes, uncomplicated; F19.282 Other psychoactive substance dependence with psychoactive substance-induced sleep disorder; F19.24 Other psychoactive substance dependence with psychoactive substance-induced mood disorder; I10 Essential (primary) hypertension
CPT/HCPCS: 36415; 80053; 85027; 86593

== ENCOUNTER 2020-01-04 14:53 | Inpatient (IN) | payer OTHER ==
[2020-01-04 19:00] VITALS: BMI 30.3
--- NOTE | 2020-01-04 19:44 | HP ---
CIWA Score Nausea/Vomitin (vomiting x 2) Muscle Tremors: 5 Anxiety: 4-Mod. Anxious/Guarded Agitation: 4-Moderately Restless Paroxysmal Sweats: 3 Orientation: 0-Oriented Tacttile Disturbances: 0-None Auditory Disturbances: 0-None Visual Disturbances: 0-None Headache: 0-None Present CIWA-Ar Total Score: 19 - Admission Criteria OASAS Guidelines: Admission for Medically Managed Detox: Requires at least one of the followin. CIWA greater than 12 2. Seizures within the past 24 hours 3. Delirium tremens within the past 24 hours 4. Hallucinations within the past 24 hours 5. Acute intervention needed for co occurring medical disorder 6. Acute intervention needed for co occurring psychiatric disorder 7. Severe withdrawal that cannot be handled at a lower level of care (continued vomiting, continued diarrhea, abnormal vital signs) requiring intravenous medication and/or fluids 8. Admitting History and Physical - Smoking History Smoking history: Current every day smoker Have you smoked in the past 12 months: Yes Aproximately how many cigarettes per day: 20 - Alcohol/Substance Use Hx Alcohol Use: Yes Admission ROS [facility] Chief Complaint: Seeking admission to detox from alcohol Allergies/Adverse Reactions: Allergies Allergy/AdvReac Type Severity Reaction Status Date / Time No Known Allergies Allergy Verified 01/04/20 18:49 History of Present Illness: 44 years old male with a long history of alcohol dependence (since age 17) is seeking admission to detox. He has been admitted multiple times, last for the period 04/17/2019-04/19/2019 and he reports that he relapsed on his birthday 08/07/2018. He reports that he drinks 3 pints of vodka and 2 x 6 pack budweiser beer. He has medical history of hypertension, psych. history of insomnia and denies suicidal ideation at this time. He works in maintenance, lives alone in an apartment and denies any legal issues. 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 Exam Limitations: No Limitations - Ebola screening Have you traveled outside of the country in the last 21 days: No Have you had contact with anyone from an Ebola affected area: No Have you been sick,other than usual withdrawal symptoms: No Do you have a fever: No - Review of Systems Constitutional: Chills, Malaise, Changes in sleep EENT: reports: No Symptoms Reported Respiratory: reports: No Symptoms reported Cardiac: reports: No Symptoms Reported GI: reports: Diarrhea (diarrhea x 3), Nausea, Poor Appetite, Poor Fluid Intake, Vomiting (vomiting x 2), Abdominal cramping : reports: No Symptoms Reported Musculoskeletal: reports: No Symptoms Reported Integumentary: reports: Dryness, Flushing Neuro: reports: Tremors Endocrine: reports: No Symptoms Reported Hematology: reports: No Symptoms Reported Psychiatric: reports: Mood/Affect Appropiate, Orientated x3, Anxious Other Systems: Reviewed and Negative Patient History - Patient Medical History Hx Anemia: No Hx Asthma: No Hx Chronic Obstructive Pulmonary Disease (COPD): No Hx Cancer: No Hx Cardiac Disorders: No Hx Congestive Heart Failure: No Hx Hypertension: Yes (Amlodipine) Hx Hypercholesterolemia: No Hx Pacemaker: No HX Cerebrovascular Accident: No Hx Seizures: No Hx Dementia: No Hx Diabetes: No Hx Gastrointestinal Disorders: No Hx Liver Disease: No Hx Genitourinary Disorders: No Hx Sexually Transmitted Disorders: No Hx Renal Disease (ESRD): No Hx Thyroid Disease: No Hx Human Immunodeficiency Virus (HIV): No Hx Hepatitis C: No Hx Depression: No Hx Suicide Attempt: No Hx Bipolar Disorder: No Hx Schizophrenia: No - Patient Surgical History Past Surgical History: No Hx Neurologic Surgery: No Hx Cataract Extraction: No Hx Cardiac Surgery: No Hx Lung Surgery: No Hx Breast Biopsy: No Hx Abdominal Surgery: No Hx Appendectomy: No Hx Cholecystectomy: No Hx Genitourinary Surgery: No Hx Orthopedic Surgery: No Hx Hysterectomy: No Anesthesia Reaction: No - PPD History Previous Implant?: Yes Documented Results: Negative w/proof Implanted On Prior [facility] Admission?: Yes Date: 04/19/19 Results: 0 mm PPD to be Administered?: No - Reproductive History Patient is a Female of Child Bearing Age (11 -55 yrs old): No (Male) - Smoking Cessation Smoking history: Current every day smoker Have you smoked in the past 12 months: Yes Aproximately how many cigarettes per day: 20 Hx Chewing Tobacco Use: No Initiated information on smoking cessation: Yes 'Breaking Loose' booklet given: 01/04/20 - Substance & Tx. History Hx Alcohol Use: Yes Hx Substance Use: Yes Substance Use Type: Alcohol, Cocaine Hx Substance Use Treatment: Yes ([facility]) - Substances abused Alcohol Substance route: Oral Frequency: Daily Amount used: LIQ- 3PINTS OF VODKA, BEER- 2 SIX PK Age of first use: 17 Date of last use: 01/04/20 Cocaine Substance route: Inhalation Frequency: Daily Amount used: 2 BAGS Age of first use: 21 Date of last use: 01/04/20 Admission Physical Exam [facility] - Vital Signs Vital Signs: Vital Signs - 24 hr 01/04/20 18:53 Temperature 97.6 F Pulse Rate 80 Respiratory 20 Rate Blood Pressure 140/89 - Physical General Appearance: Yes: Moderate Distress, Tremorous, Sweating, Anxious HEENTM: Yes: Within Normal Limits Respiratory: Yes: Lungs Clear, Normal Breath Sounds, No Respiratory Distress Neck: Yes: Within Normal Limits Breast: Yes: Breast Exam Deferred Cardiology: Yes: Within Normal Limits Abdominal: Yes: Normal Bowel Sounds Genitourinary: Yes: Within Normal Limits Back: Yes: Normal Inspection Musculoskeletal: Yes: Within Normal Limits Extremities: Yes: Tremors Neurological: Yes: Within Normal Limits, Alert, Normal Mood/Affect Integumentary: Yes: Warm - Diagnostic (1) Alcohol dependence with uncomplicated withdrawal Current Visit: Yes Status: Acute (2) Nicotine dependence Current Visit: Yes Status: Chronic Qualifiers: Nicotine product type: cigarettes Substance use status: in withdrawal Qualified Code(s): F17.213 - Nicotine dependence, cigarettes, with withdrawal (3) Cocaine dependence Current Visit: Yes Status: Chronic Qualifiers: Substance use status: uncomplicated Qualified Code(s): F14.20 - Cocaine dependence, uncomplicated (4) Hypertension Current Visit: Yes Status: Chronic Qualifiers: Hypertension type: essential hypertension Qualified Code(s): I10 - Essential (primary) hypertension Cleared for Admission [facility] - Detox or Rehab [facility] Level of Care: Medically Managed Detox Regimen/Protocol: Librium Claeared for Rehab Admission: No Breathalyzer - Breathalyzer Breathalyzer: 0 Urine Drug Screen - Test Device Lot number: [id number] Expiration date: 01/21/22 - Control Is test valid?: Yes - Results Drug screen NEGATIVE: No Urine drug screen results: KATINA-Cocaine, BZO-Benzodiazepines Inpatient Rehab Admission - Rehab Decision to Admit Inpatient rehab admission?: No
[2020-01-04] MEDS ORDERED: NICOTINE POLACRILEX 2 MG GUM BUC PRN (20:06)
[2020-01-04] MEDS ORDERED: METHOCARBAMOL 500 MG TABLET PO PRN (20:06)
[2020-01-04] MEDS ORDERED: chlordiazePOXIDE HCL 25 MG CAPSULE PO PRN (20:06)
[2020-01-04] MEDS ORDERED: BISMUTH SUBSALICYLATE 524 MG/30 ML UD PO PRN (20:06)
[2020-01-04] MEDS ORDERED: MAGNESIUM CITRATE 300 ML BOTTLE PO PRN (20:06)
[2020-01-04] MEDS ORDERED: MENTHOL/PHENOL 1 EACH UD MM PRN (20:06)
[2020-01-04] MEDS ORDERED: MAG HYDROX/AL HYDROX/SIMETH 30 ML UNIT-DOSE CUP PO PRN (20:06)
[2020-01-04] MEDS ORDERED: IBUPROFEN 400 MG TABLET (FP) PO PRN (20:06)
[2020-01-04] MEDS ORDERED: ACETAMINOPHEN 325 MG TABLET (FP) PO PRN ×2 (20:06)
[2020-01-04] MEDS ORDERED: MAGNESIUM HYDROX 2400MG/30ML ORAL SUSPENSION 30 ML CUP PO PRN (20:06)
[2020-01-04] MEDS ORDERED: ONDANSETRON *ODT* 4 MG TABLET SL ONE (20:06)
[2020-01-04] MEDS: chlordiazePOXIDE HCL 25 MG CAPSULE PO SCH (22:11)
[2020-01-04] MEDS: THIAMINE HCL 100 MG TABLET (FP) PO SCH (22:11)
[2020-01-04] MEDS: MELATONIN 5 MG TABLETS PO SCH (22:12)
[2020-01-05] MEDS: chlordiazePOXIDE HCL 25 MG CAPSULE PO SCH ×4 (06:37→22:07)
[2020-01-05] MEDS: amLODIPine BESYLATE 10 MG TABLET (FP) PO SCH (11:01)
[2020-01-05] MEDS: NICOTINE 21 MG/24 HOURS TOPICAL PATCH TD SCH (11:01)
[2020-01-05] MEDS: PRENATAL VITAMINS W/ FOLIC ACID TABLET (FP) PO SCH (11:01)
[2020-01-05 11:39] LABS: HEMATOCRIT 40.1 % (35.4-49); HEMOGLOBIN 12.9 GM/dL (11.7-16.9); MCH 28.1 pg (25.7-33.7); MCHC 32.3 g/dl (32.0-35.9); MEAN CELL VOLUME 87.1 fl (80-96); MEAN PLT VOLUME 7.9 fl (7.5-11.1); PLATELET COUNT 215 K/MM3 (134-434); RDW 16.2 % (11.9-15.9); WHITE BLOOD COUNT 4.9 K/mm3 (4.0-10.0)
[2020-01-05 11:43] LABS: BILIRUBIN,TOTAL 0.6 mg/dL (0.2-1); BLOOD UREA NITROGEN 9.8 mg/dL (7-18); CALCIUM 8.4 mg/dL (8.5-10.1); CREATININE 1.2 mg/dL (0.55-1.3); POTASSIUM 3.7 mmol/L (3.5-5.1); TOT PROT 5.9 g/dl (6.4-8.2)
--- NOTE | 2020-01-05 13:38 | PN ---
S CIWA - CIWA Score Nausea/Vomitin-No Nausea/No Vomiting Muscle Tremors: 3 Anxiety: 2 Agitation: 2 Paroxysmal Sweats: No Perspiration Orientation: 0-Oriented Tacttile Disturbances: 0-None Auditory Disturbances: 0-None Visual Disturbances: 0-None Headache: 0-None Present CIWA-Ar Total Score: 7 BHS Progress Note (SOAP) Subjective: restless agitation irritable I just want to sleep and be left alone Objective: 01/05/20 13:38 Vital Signs Temperature 98.7 F 01/05/20 09:10 Pulse Rate 66 01/05/20 09:10 Respiratory Rate 18 01/05/20 09:10 Blood Pressure 129/71 01/05/20 09:10 O2 Sat by Pulse Oximetry (%) 96 01/05/20 09:10 Laboratory Tests 01/05/20 01/05/20 01/05/20 08:00 08:00 08:00 WBC 4.9 RBC 4.60 Hgb 12.9 Hct 40.1 MCV 87.1 MCH 28.1 MCHC 32.3 RDW 16.2 H Plt Count 215 MPV 7.9 Sodium 142 Potassium 3.7 Chloride 109 H Carbon Dioxide 24 Anion Gap 8 BUN 9.8 Creatinine 1.2 Est GFR (CKD-EPI)AfAm 85.32 Est GFR (CKD-EPI)NonAf 73.62 Random Glucose 113 H Calcium 8.4 L Total Bilirubin 0.6 AST 19 ALT 16 Alkaline Phosphatase 56 Total Protein 5.9 L Albumin 3.0 L Syphilis Serology Non-reactive labs noted aaox3 ambulating no acute distress pt refused to talk with singer songwriter Assessment: 01/05/20 13:38 withdrawals Plan: continue detox
--- NOTE | 2020-01-05 15:46 | EKG ---
Test Reason : Blood Pressure : / mmHG Vent. Rate : 055 BPM Atrial Rate : 055 BPM P-R Int : 188 ms QRS Dur : 114 ms QT Int : 444 ms P-R-T Axes : 040 047 068 degrees QTc Int : 424 ms SINUS BRADYCARDIA WITH SINUS ARRHYTHMIA CANNOT RULE OUT ANTERIOR INFARCT , AGE UNDETERMINED ABNORMAL ECG WHEN COMPARED WITH ECG OF 08-APR-2018 22:03, VENT. RATE HAS DECREASED BY 30 BPM NONSPECIFIC T WAVE ABNORMALITY NO LONGER EVIDENT IN INFERIOR LEADS Confirmed by LISA MASON MD ([id number]) on 01/05/2020 3:46:24 PM Referred By: Confirmed By:LISA MASON MD
[2020-01-05] MEDS: THIAMINE HCL 100 MG TABLET (FP) PO SCH (22:07)
[2020-01-05] MEDS: MELATONIN 5 MG TABLETS PO SCH (22:08)
[2020-01-06] MEDS: chlordiazePOXIDE HCL 25 MG CAPSULE PO SCH ×4 (06:11→22:18)
[2020-01-06] MEDS: amLODIPine BESYLATE 10 MG TABLET (FP) PO SCH (10:49)
[2020-01-06] MEDS: PRENATAL VITAMINS W/ FOLIC ACID TABLET (FP) PO SCH (10:49)
[2020-01-06] MEDS: NICOTINE 21 MG/24 HOURS TOPICAL PATCH TD SCH (10:49)
--- NOTE | 2020-01-06 15:32 | PN ---
S CIWA - CIWA Score Nausea/Vomitin-No Nausea/No Vomiting Muscle Tremors: 2 Anxiety: 3 Agitation: 1-Slight > Activity Paroxysmal Sweats: 1-Minimal Palms Moist Orientation: 0-Oriented Tacttile Disturbances: 0-None Auditory Disturbances: 0-None Visual Disturbances: 2-Mild Sensitivity Headache: 0-None Present CIWA-Ar Total Score: 9 BHS Progress Note (SOAP) Subjective: Anxious, Fatigue, Interrupted Sleep. Objective: Patient A & O X 3, Observed Ambulating on Detox Unit Unassisted. In No Acute Distress. 01/06/20 15:31 Vital Signs Temperature 97.1 F L 01/06/20 12:50 Pulse Rate 73 01/06/20 12:50 Respiratory Rate 16 01/06/20 12:50 Blood Pressure 134/79 01/06/20 12:50 O2 Sat by Pulse Oximetry (%) 97 01/06/20 12:50 Laboratory Tests 01/04/20 01/05/20 01/05/20 21:10 08:00 08:00 WBC 4.9 RBC 4.60 Hgb 12.9 Hct 40.1 MCV 87.1 MCH 28.1 MCHC 32.3 RDW 16.2 H Plt Count 215 MPV 7.9 Sodium Potassium Chloride Carbon Dioxide Anion Gap BUN Creatinine Est GFR (CKD-EPI)AfAm Est GFR (CKD-EPI)NonAf Random Glucose Calcium Total Bilirubin AST ALT Alkaline Phosphatase Total Protein Albumin Syphilis Serology Non-reactive COVID-19 (CYNTHIA) Not detected 01/05/20 08:00 WBC RBC Hgb Hct MCV MCH MCHC RDW Plt Count MPV Sodium 142 Potassium 3.7 Chloride 109 H Carbon Dioxide 24 Anion Gap 8 BUN 9.8 Creatinine 1.2 Est GFR (CKD-EPI)AfAm 85.32 Est GFR (CKD-EPI)NonAf 73.62 Random Glucose 113 H Calcium 8.4 L Total Bilirubin 0.6 AST 19 ALT 16 Alkaline Phosphatase 56 Total Protein 5.9 L Albumin 3.0 L Syphilis Serology COVID-19 (CYNTHIA) Lab Results noted. Assessment: 01/06/20 15:32 WITHDRAWAL SYMPTOMS. Plan: Continue Detox.
[2020-01-06] MEDS: THIAMINE HCL 100 MG TABLET (FP) PO SCH (22:18)
[2020-01-06] MEDS: hydrOXYzine PAMOATE 25 MG CAPSULE (FP) PO PRN (22:19)
[2020-01-06] MEDS: MELATONIN 5 MG TABLETS PO SCH (22:19)
[2020-01-07] MEDS ORDERED: chlordiazePOXIDE HCL 10 MG CAPSULE PO PRN
[2020-01-07] MEDS: chlordiazePOXIDE HCL 10 MG CAPSULE PO SCH ×4 (06:45→23:01)
[2020-01-07] MEDS: NICOTINE 21 MG/24 HOURS TOPICAL PATCH TD SCH (11:14)
[2020-01-07] MEDS: PRENATAL VITAMINS W/ FOLIC ACID TABLET (FP) PO SCH (11:14)
[2020-01-07] MEDS: amLODIPine BESYLATE 10 MG TABLET (FP) PO SCH (11:14)
--- NOTE | 2020-01-07 17:16 | PN ---
S CIWA - CIWA Score Nausea/Vomitin-No Nausea/No Vomiting Muscle Tremors: 1-None Visible, but [place] Anxiety: 2 Agitation: 2 Paroxysmal Sweats: 1-Minimal Palms Moist Orientation: 0-Oriented Tacttile Disturbances: 0-None Auditory Disturbances: 0-None Visual Disturbances: 0-None Headache: 0-None Present CIWA-Ar Total Score: 6 BHS Progress Note (SOAP) Subjective: Interrupted sleep Objective: 01/07/20 17:13 Last Vital Signs Temp Pulse Resp BP Pulse Ox 97.1 F L 76 16 148/82 99 01/07/20 13:33 01/07/20 13:33 01/07/20 13:33 01/07/20 13:33 01/07/20 13:33 Elevated b/p noted Laboratory Tests 01/04/20 01/05/20 01/05/20 21:10 08:00 08:00 WBC 4.9 RBC 4.60 Hgb 12.9 Hct 40.1 MCV 87.1 MCH 28.1 MCHC 32.3 RDW 16.2 H Plt Count 215 MPV 7.9 Sodium Potassium Chloride Carbon Dioxide Anion Gap BUN Creatinine Est GFR (CKD-EPI)AfAm Est GFR (CKD-EPI)NonAf Random Glucose Calcium Total Bilirubin AST ALT Alkaline Phosphatase Total Protein Albumin Syphilis Serology Non-reactive COVID-19 (CYNTHIA) Not detected 01/05/20 08:00 WBC RBC Hgb Hct MCV MCH MCHC RDW Plt Count MPV Sodium 142 Potassium 3.7 Chloride 109 H Carbon Dioxide 24 Anion Gap 8 BUN 9.8 Creatinine 1.2 Est GFR (CKD-EPI)AfAm 85.32 Est GFR (CKD-EPI)NonAf 73.62 Random Glucose 113 H Calcium 8.4 L Total Bilirubin 0.6 AST 19 ALT 16 Alkaline Phosphatase 56 Total Protein 5.9 L Albumin 3.0 L Syphilis Serology COVID-19 (CYNTHIA) Labs reviewed: mild hyperglycemia, hypoalbuminemia Assessment: 01/07/20 17:15 Withdrawal sxs Noted with HTN, mild hyperglycemia, hypoalbuminemia Plan: Continue detox Encourage PO water hydration HTN: monitor b/p, continue norvasc Mild hyperglycemia: denies dm, repeat fasting glucose, send A1c Hypoalbuminemia: encourage diet
[2020-01-07] MEDS: hydrOXYzine PAMOATE 25 MG CAPSULE (FP) PO PRN (23:02)
[2020-01-07] MEDS: THIAMINE HCL 100 MG TABLET (FP) PO SCH (23:02)
[2020-01-07] MEDS: MELATONIN 5 MG TABLETS PO SCH (23:02)
[2020-01-08] MEDS: chlordiazePOXIDE HCL 10 MG CAPSULE PO SCH ×2 (05:12→18:26)
[2020-01-08] MEDS: PRENATAL VITAMINS W/ FOLIC ACID TABLET (FP) PO SCH (11:05)
[2020-01-08] MEDS: NICOTINE 21 MG/24 HOURS TOPICAL PATCH TD SCH (11:05)
[2020-01-08] MEDS: amLODIPine BESYLATE 10 MG TABLET (FP) PO SCH (11:05)
--- NOTE | 2020-01-08 11:27 | PN ---
S CIWA - CIWA Score Nausea/Vomitin-No Nausea/No Vomiting Muscle Tremors: None Anxiety: 1-Mildly Anxious Agitation: 1-Slight > Activity Paroxysmal Sweats: 1-Minimal Palms Moist Orientation: 0-Oriented Tacttile Disturbances: 0-None Auditory Disturbances: 0-None Visual Disturbances: 0-None Headache: 0-None Present CIWA-Ar Total Score: 3 BHS Progress Note (SOAP) Subjective: restless agitation Objective: 01/08/20 11:26 Vital Signs Temperature 96.8 F L 01/08/20 05:03 Pulse Rate 73 01/08/20 05:03 Respiratory Rate 18 01/08/20 05:03 Blood Pressure 135/86 01/08/20 05:03 O2 Sat by Pulse Oximetry (%) 97 01/08/20 05:03 aaox3 ambulating no acute distress Assessment: 01/08/20 11:26 mild withdrawals Plan: continue detox d/c in am
[2020-01-08] MEDS ORDERED: chlordiazePOXIDE HCL 10 MG CAPSULE PO ONE (22:00)
[2020-01-08] MEDS: THIAMINE HCL 100 MG TABLET (FP) PO SCH (22:07)
[2020-01-08] MEDS: MELATONIN 5 MG TABLETS PO SCH (22:07)
[2020-01-08] MEDS: hydrOXYzine PAMOATE 25 MG CAPSULE (FP) PO PRN (22:08)
[2020-01-09] MEDS ORDERED: MASKS NR ONE (02:01)
[2020-01-09] MEDS ORDERED: chlordiazePOXIDE HCL 10 MG CAPSULE PO ONE (05:00)
--- NOTE | 2020-01-09 06:49 | DS ---
[facility] Detox Discharge Summary Admission Date: 01/04/20 Discharge Date: 01/09/20 - Physical Exam Results Vital Signs: Vital Signs Temperature 97.8 F 01/08/20 21:48 Pulse Rate 85 01/08/20 21:48 Respiratory Rate 19 01/08/20 21:48 Blood Pressure 139/108 H 01/08/20 21:48 O2 Sat by Pulse Oximetry (%) 96 01/08/20 21:48 - Treatment Hospital Course: Detox Protocol Followed, Detoxed Safely, Responded well, Discharged Condition Good - Medication Discharge Medications: Ambulatory Orders traZODone HCL [Trazodone HCl] 100 mg PO HS 02/14/18 Amlodipine Besylate [Norvasc -] 10 mg PO DAILY #30 tablet 04/19/19 - AMA Did Patient Leave Against Medical Advice: No
[2020-01-09 07:06] VITALS: BP 152/100; PULSE 73; TEMP 97.7
== END 2020-01-09 07:00 | disposition home or self-care (01) | DRG 774 ==
LOC: YASAS 14:53 → Y6N 20:52
PROVIDERS: ADMIT Allergy & Immunology; ATTEND Allergy & Immunology
PROC: HZ2ZZZZ Detoxification Services for Substance Abuse Treatment (ICD-10-PCS; principal; 2020-01-04)
DX: F10.230 Alcohol dependence with withdrawal, uncomplicated (principal); F14.20 Cocaine dependence, uncomplicated; F17.210 Nicotine dependence, cigarettes, uncomplicated; G47.00 Insomnia, unspecified; I10 Essential (primary) hypertension; E88.09 Other disorders of plasma-protein metabolism, not elsewhere classified; R73.9 Hyperglycemia, unspecified
CPT/HCPCS: 36415; 80053; 85027; 86780; 93005; 93010; U0003

== ENCOUNTER 2020-06-28 11:08 | Inpatient (IN) | payer OTHER ==
[2020-06-28 13:41] VITALS: BMI 30.2
[2020-06-28] MEDS ORDERED: ONDANSETRON *ODT* 4 MG TABLET SL PRN (13:41)
[2020-06-28] MEDS ORDERED: BISMUTH SUBSALICYLATE 524 MG/30 ML UD PO PRN (13:41)
[2020-06-28] MEDS ORDERED: MENTHOL/PHENOL 1 EACH UD MM PRN (13:41)
[2020-06-28] MEDS ORDERED: MAGNESIUM HYDROX 2400MG/30ML ORAL SUSPENSION 30 ML CUP PO PRN (13:41)
[2020-06-28] MEDS ORDERED: MAG HYDROX/AL HYDROX/SIMETH 30 ML UNIT-DOSE CUP PO PRN (13:41)
[2020-06-28] MEDS ORDERED: ACETAMINOPHEN 325 MG TABLET (FP) PO PRN ×2 (13:41)
[2020-06-28] MEDS ORDERED: chlordiazePOXIDE HCL 25 MG CAPSULE PO PRN (13:41)
[2020-06-28] MEDS ORDERED: MAGNESIUM CITRATE 300 ML BOTTLE PO PRN (13:41)
[2020-06-28] MEDS ORDERED: IBUPROFEN 400 MG TABLET (FP) PO PRN (13:41)
[2020-06-28] MEDS ORDERED: NICOTINE POLACRILEX 2 MG GUM BUC PRN (13:41)
[2020-06-28] MEDS: amLODIPine BESYLATE 10 MG TABLET (FP) PO SCH (15:44)
[2020-06-28] MEDS: NICOTINE 7 MG/24 HOURS TOPICAL PATCH TD SCH (15:45)
[2020-06-28] MEDS: hydrOXYzine PAMOATE 25 MG CAPSULE (FP) PO SCH ×3 (15:45→22:12)
[2020-06-28 17:16] LABS: HEMATOCRIT 39.4 % (35.4-49); HEMOGLOBIN 12.9 GM/dL (11.7-16.9); MCH 28.5 pg (25.7-33.7); MCHC 32.8 g/dl (32.0-35.9); MEAN CELL VOLUME 87.2 fl (80-96); MEAN PLT VOLUME 8.2 fl (7.5-11.1); PLATELET COUNT 290 K/MM3 (134-434); RBC 4.52 M/mm3 (4.00-5.60); RDW 15.5 % (11.9-15.9); WHITE BLOOD COUNT 6.1 K/mm3 (4.0-10.0)
[2020-06-28 17:29] LABS: POTASSIUM 4.1 mmol/L (3.5-5.1)
[2020-06-28 17:38] LABS: CALCIUM 9.1 mg/dL (8.5-10.1)
[2020-06-28 17:39] LABS: ALBUMIN 3.4 g/dl (3.4-5.0)
[2020-06-28 17:41] LABS: CREATININE 1.3 mg/dL (0.55-1.3)
[2020-06-28 17:43] LABS: BILIRUBIN,TOTAL 0.8 mg/dL (0.2-1)
[2020-06-28] MEDS: chlordiazePOXIDE HCL 25 MG CAPSULE PO SCH ×2 (17:47→22:12)
[2020-06-28] MEDS: METHOCARBAMOL 500 MG TABLET PO PRN (22:12)
[2020-06-28] MEDS: MELATONIN 5 MG TABLETS PO SCH (22:12)
[2020-06-28] MEDS: THIAMINE HCL 100 MG TABLET (FP) PO SCH (22:12)
[2020-06-29] MEDS: chlordiazePOXIDE HCL 25 MG CAPSULE PO SCH ×4 (06:18→22:12)
[2020-06-29] MEDS: hydrOXYzine PAMOATE 25 MG CAPSULE (FP) PO SCH ×5 (06:19→22:11)
[2020-06-29] MEDS: amLODIPine BESYLATE 10 MG TABLET (FP) PO SCH (10:53)
[2020-06-29] MEDS: PRENATAL VITAMINS W/ FOLIC ACID TABLET (FP) PO SCH (10:53)
[2020-06-29] MEDS: NICOTINE 7 MG/24 HOURS TOPICAL PATCH TD SCH (10:54)
[2020-06-29] MEDS ORDERED: SUVOREXANT 10 MG TABLET PO PRN (22:00)
[2020-06-29] MEDS: MELATONIN 5 MG TABLETS PO SCH (22:11)
[2020-06-29] MEDS: THIAMINE HCL 100 MG TABLET (FP) PO SCH (22:11)
[2020-06-30] MEDS: chlordiazePOXIDE HCL 25 MG CAPSULE PO SCH ×4 (05:41→22:37)
[2020-06-30] MEDS: hydrOXYzine PAMOATE 25 MG CAPSULE (FP) PO SCH ×5 (05:41→22:37)
[2020-06-30] MEDS: amLODIPine BESYLATE 10 MG TABLET (FP) PO SCH (10:05)
[2020-06-30] MEDS: NICOTINE 7 MG/24 HOURS TOPICAL PATCH TD SCH (10:07)
[2020-06-30] MEDS: PRENATAL VITAMINS W/ FOLIC ACID TABLET (FP) PO SCH (10:07)
[2020-06-30] MEDS: THIAMINE HCL 100 MG TABLET (FP) PO SCH (22:37)
[2020-06-30] MEDS: MELATONIN 5 MG TABLETS PO SCH (22:37)
[2020-06-30] MEDS: METHOCARBAMOL 500 MG TABLET PO PRN (22:39)
[2020-07-01] MEDS ORDERED: chlordiazePOXIDE HCL 10 MG CAPSULE PO PRN
[2020-07-01] MEDS: hydrOXYzine PAMOATE 25 MG CAPSULE (FP) PO SCH ×5 (05:22→23:23)
[2020-07-01] MEDS: METHOCARBAMOL 500 MG TABLET PO PRN (05:23)
[2020-07-01] MEDS: chlordiazePOXIDE HCL 10 MG CAPSULE PO SCH ×4 (05:23→22:16)
[2020-07-01] MEDS: NICOTINE 7 MG/24 HOURS TOPICAL PATCH TD SCH (10:37)
[2020-07-01] MEDS: amLODIPine BESYLATE 10 MG TABLET (FP) PO SCH (10:37)
[2020-07-01] MEDS: PRENATAL VITAMINS W/ FOLIC ACID TABLET (FP) PO SCH (10:37)
[2020-07-01] MEDS: cloNIDine HCL 0.1 MG TABLET PO PRN ×2 (13:19→22:19)
[2020-07-01] MEDS: THIAMINE HCL 100 MG TABLET (FP) PO SCH (22:16)
[2020-07-01] MEDS: MELATONIN 5 MG TABLETS PO SCH (23:23)
[2020-07-02] MEDS ORDERED: chlordiazePOXIDE HCL 10 MG CAPSULE PO SCH (05:00)
[2020-07-02 07:23] VITALS: BP 136/85; PULSE 64; TEMP 97.5
[2020-07-02] MEDS: hydrOXYzine PAMOATE 25 MG CAPSULE (FP) PO SCH (07:23)
[2020-07-03] MEDS ORDERED: chlordiazePOXIDE HCL 10 MG CAPSULE PO ONE (05:00)
== END 2020-07-02 07:20 | disposition left against medical advice (07) | DRG 770 ==
LOC: YASAS 11:08 → Y6N 14:59
PROVIDERS: ADMIT Allergy & Immunology; ATTEND Allergy & Immunology
PROC: HZ2ZZZZ Detoxification Services for Substance Abuse Treatment (ICD-10-PCS; principal; 2020-06-28)
DX: F10.230 Alcohol dependence with withdrawal, uncomplicated (principal); F11.20 Opioid dependence, uncomplicated; F14.20 Cocaine dependence, uncomplicated; F12.20 Cannabis dependence, uncomplicated; F17.210 Nicotine dependence, cigarettes, uncomplicated; F19.282 Other psychoactive substance dependence with psychoactive substance-induced sleep disorder; F10.282 Alcohol dependence with alcohol-induced sleep disorder; G47.00 Insomnia, unspecified; R79.89 Other specified abnormal findings of blood chemistry
CPT/HCPCS: 36415; 80053; 84520; 85027; 86780; C9803; J0735; U0003

== ENCOUNTER 2020-08-09 11:43 | Inpatient (IN) | payer OTHER ==
[2020-08-09 14:37] VITALS: BMI 29.4
[2020-08-09] MEDS ORDERED: ONDANSETRON *ODT* 4 MG TABLET SL PRN (15:41)
[2020-08-09] MEDS ORDERED: MAGNESIUM HYDROX 2400MG/30ML ORAL SUSPENSION 30 ML CUP PO PRN (15:41)
[2020-08-09] MEDS ORDERED: BISMUTH SUBSALICYLATE 524 MG/30 ML UD PO PRN (15:41)
[2020-08-09] MEDS ORDERED: ACETAMINOPHEN 325 MG TABLET (FP) PO PRN ×2 (15:41)
[2020-08-09] MEDS ORDERED: MAG HYDROX/AL HYDROX/SIMETH 30 ML UNIT-DOSE CUP PO PRN (15:41)
[2020-08-09] MEDS ORDERED: NICOTINE POLACRILEX 2 MG GUM BUC PRN (15:41)
[2020-08-09] MEDS ORDERED: MAGNESIUM CITRATE 300 ML BOTTLE PO PRN (15:41)
[2020-08-09] MEDS ORDERED: METHOCARBAMOL 500 MG TABLET PO PRN (15:41)
[2020-08-09] MEDS ORDERED: chlordiazePOXIDE HCL 25 MG CAPSULE PO PRN (15:41)
[2020-08-09] MEDS ORDERED: IBUPROFEN 400 MG TABLET (FP) PO PRN (15:41)
[2020-08-09] MEDS ORDERED: MENTHOL/PHENOL 1 EACH UD MM PRN (15:41)
[2020-08-09] MEDS: hydrOXYzine PAMOATE 25 MG CAPSULE (FP) PO SCH ×2 (18:27→22:47)
[2020-08-09] MEDS: chlordiazePOXIDE HCL 25 MG CAPSULE PO SCH ×2 (18:27→22:47)
[2020-08-09] MEDS: NICOTINE 14 MG/24 HOURS TOPICAL PATCH TD SCH (18:30)
[2020-08-09] MEDS: THIAMINE HCL 100 MG TABLET (FP) PO SCH (22:46)
[2020-08-09] MEDS: MELATONIN 5 MG TABLETS PO SCH (22:46)
[2020-08-10] MEDS: chlordiazePOXIDE HCL 25 MG CAPSULE PO SCH ×4 (05:53→22:45)
[2020-08-10] MEDS: hydrOXYzine PAMOATE 25 MG CAPSULE (FP) PO SCH ×5 (05:53→22:45)
[2020-08-10 09:58] LABS: HEMATOCRIT 41.5 % (35.4-49); HEMOGLOBIN 13.5 GM/dL (11.7-16.9); MCHC 32.5 g/dl (32.0-35.9); MEAN CELL VOLUME 86.1 fl (80-96); MEAN PLT VOLUME 8.4 fl (7.5-11.1); PLATELET COUNT 232 K/MM3 (134-434); RBC 4.82 M/mm3 (4.00-5.60); RDW 16.1 % (11.9-15.9); WHITE BLOOD COUNT 4.6 K/mm3 (4.0-10.0)
[2020-08-10 10:31] LABS: POTASSIUM 4.3 mmol/L (3.5-5.1)
[2020-08-10 10:34] LABS: ALBUMIN 3.6 g/dl (3.4-5.0); CALCIUM 8.9 mg/dL (8.5-10.1)
[2020-08-10 10:37] LABS: BILIRUBIN,TOTAL 0.6 mg/dL (0.2-1); CREATININE 1.3 mg/dL (0.55-1.3)
[2020-08-10 10:39] LABS: TOT PROT 6.7 g/dl (6.4-8.2)
[2020-08-10] MEDS: NICOTINE 14 MG/24 HOURS TOPICAL PATCH TD SCH (11:00)
[2020-08-10] MEDS: PRENATAL VITAMINS W/ FOLIC ACID TABLET (FP) PO SCH (11:00)
[2020-08-10] MEDS: MELATONIN 5 MG TABLETS PO SCH (22:45)
[2020-08-10] MEDS: THIAMINE HCL 100 MG TABLET (FP) PO SCH (22:45)
[2020-08-11] MEDS: chlordiazePOXIDE HCL 25 MG CAPSULE PO SCH ×4 (06:49→23:03)
[2020-08-11] MEDS: hydrOXYzine PAMOATE 25 MG CAPSULE (FP) PO SCH ×5 (06:50→23:03)
[2020-08-11] MEDS: PRENATAL VITAMINS W/ FOLIC ACID TABLET (FP) PO SCH (10:49)
[2020-08-11] MEDS: NICOTINE 14 MG/24 HOURS TOPICAL PATCH TD SCH (10:49)
[2020-08-11] MEDS: MELATONIN 5 MG TABLETS PO SCH (23:03)
[2020-08-11] MEDS: THIAMINE HCL 100 MG TABLET (FP) PO SCH (23:04)
[2020-08-12] MEDS ORDERED: chlordiazePOXIDE HCL 10 MG CAPSULE PO PRN
[2020-08-12] MEDS: chlordiazePOXIDE HCL 10 MG CAPSULE PO SCH ×5 (05:49→22:55)
[2020-08-12] MEDS: hydrOXYzine PAMOATE 25 MG CAPSULE (FP) PO SCH ×5 (05:49→22:54)
[2020-08-12] MEDS: NICOTINE 14 MG/24 HOURS TOPICAL PATCH TD SCH (11:00)
[2020-08-12] MEDS: PRENATAL VITAMINS W/ FOLIC ACID TABLET (FP) PO SCH (11:00)
[2020-08-12] MEDS ORDERED: METOPROLOL TARTRATE 25 MG TABLET (FP) PO ONE (18:00)
[2020-08-12] MEDS: MELATONIN 5 MG TABLETS PO SCH (22:54)
[2020-08-12] MEDS: THIAMINE HCL 100 MG TABLET (FP) PO SCH (22:54)
[2020-08-13] MEDS: hydrOXYzine PAMOATE 25 MG CAPSULE (FP) PO SCH ×5 (07:24→23:18)
[2020-08-13] MEDS: chlordiazePOXIDE HCL 10 MG CAPSULE PO SCH ×2 (07:24→18:55)
[2020-08-13] MEDS: NICOTINE 14 MG/24 HOURS TOPICAL PATCH TD SCH (10:37)
[2020-08-13] MEDS: PRENATAL VITAMINS W/ FOLIC ACID TABLET (FP) PO SCH (10:37)
[2020-08-13] MEDS: MELATONIN 5 MG TABLETS PO SCH (23:18)
[2020-08-13] MEDS: THIAMINE HCL 100 MG TABLET (FP) PO SCH (23:18)
[2020-08-14] MEDS ORDERED: chlordiazePOXIDE HCL 10 MG CAPSULE PO ONE (05:00)
[2020-08-14 06:36] VITALS: BP 149/97; PULSE 101; TEMP 97.1
[2020-08-14] MEDS: hydrOXYzine PAMOATE 25 MG CAPSULE (FP) PO SCH (07:47)
== END 2020-08-14 08:06 | disposition home or self-care (01) | DRG 774 ==
LOC: YASAS 11:43 → Y3N 17:45
PROVIDERS: ADMIT Allergy & Immunology; ATTEND Allergy & Immunology
PROC: HZ2ZZZZ Detoxification Services for Substance Abuse Treatment (ICD-10-PCS; principal; 2020-08-09)
DX: F10.230 Alcohol dependence with withdrawal, uncomplicated (principal); F14.20 Cocaine dependence, uncomplicated; F12.20 Cannabis dependence, uncomplicated; F17.210 Nicotine dependence, cigarettes, uncomplicated; I10 Essential (primary) hypertension
CPT/HCPCS: 36415; 80053; 85027; 86780; C9803; U0003

== ENCOUNTER 2021-03-07 11:24 | Inpatient (IN) | payer OTHER ==
[2021-03-07 12:45] VITALS: BMI 29.0
[2021-03-07] MEDS ORDERED: MAGNESIUM CITRATE 300 ML BOTTLE PO PRN (16:52)
[2021-03-07] MEDS ORDERED: NICOTINE 10 MG CARTRIDGE (INHALER) IH PRN (16:52)
[2021-03-07] MEDS ORDERED: MAG HYDROX/AL HYDROX/SIMETH 30 ML UNIT-DOSE CUP PO PRN (16:52)
[2021-03-07] MEDS ORDERED: NICOTINE POLACRILEX 2 MG GUM BUC PRN (16:52)
[2021-03-07] MEDS ORDERED: MENTHOL/PHENOL 1 EACH UD MM PRN (16:52)
[2021-03-07] MEDS ORDERED: NICOTINE 21 MG/24 HOURS TOPICAL PATCH TD PRN (16:52)
[2021-03-07] MEDS ORDERED: ACETAMINOPHEN 325 MG TABLET (FP) PO PRN ×2 (16:52)
[2021-03-07] MEDS ORDERED: IBUPROFEN 400 MG TABLET (FP) PO PRN (16:52)
[2021-03-07] MEDS ORDERED: BISMUTH SUBSALICYLATE 524 MG/30 ML PO PRN (16:52)
[2021-03-07] MEDS ORDERED: ONDANSETRON *ODT* 4 MG TABLET SL PRN (16:52)
[2021-03-07] MEDS ORDERED: MAGNESIUM HYDROX 2400MG/30ML ORAL SUSPENSION 30 ML CUP PO PRN (16:52)
[2021-03-07] MEDS: METHOCARBAMOL 500 MG TABLET PO PRN (21:01)
[2021-03-07] MEDS: hydrOXYzine PAMOATE 25 MG CAPSULE (FP) PO SCH ×2 (21:01→23:13)
[2021-03-07] MEDS: diazePAM 5 MG TABLET PO SCH ×2 (21:02→23:13)
[2021-03-07] MEDS: PRENATAL VITAMINS W/ FOLIC ACID TABLET (FP) PO SCH (21:04)
[2021-03-07] MEDS: MELATONIN 5 MG TABLETS PO SCH (23:13)
[2021-03-07] MEDS: THIAMINE HCL 100 MG TABLET (FP) PO SCH (23:13)
[2021-03-08] MEDS: diazePAM 5 MG TABLET PO SCH ×4 (06:00→23:07)
[2021-03-08] MEDS: hydrOXYzine PAMOATE 25 MG CAPSULE (FP) PO SCH ×5 (06:12→23:07)
[2021-03-08 10:42] LABS: HEMATOCRIT 43.5 % (35.4-49); HEMOGLOBIN 14.4 GM/dL (11.7-16.9); MCH 29.2 pg (25.7-33.7); MEAN CELL VOLUME 88.5 fl (80-96); MEAN PLT VOLUME 8.2 fl (7.5-11.1); PLATELET COUNT 196 10^3/uL (134-434); RBC 4.91 M/mm3 (4.00-5.60); RDW 18.8 % (11.9-15.9); WHITE BLOOD COUNT 7.7 K/mm3 (4.0-10.0)
[2021-03-08 10:50] LABS: CALCIUM 8.5 mg/dL (8.5-10.1)
[2021-03-08 10:51] LABS: ALBUMIN 2.5 g/dl (3.4-5.0); BLOOD UREA NITROGEN 12.9 mg/dL (7-18)
[2021-03-08 10:54] LABS: BILIRUBIN,TOTAL 0.5 mg/dL (0.2-1); CREATININE 1.1 mg/dL (0.55-1.3); TOT PROT 5.6 g/dl (6.4-8.2)
[2021-03-08] MEDS: PRENATAL VITAMINS W/ FOLIC ACID TABLET (FP) PO SCH (11:45)
[2021-03-08] MEDS: THIAMINE HCL 100 MG TABLET (FP) PO SCH (23:07)
[2021-03-08] MEDS: MELATONIN 5 MG TABLETS PO SCH (23:07)
[2021-03-09] MEDS: hydrOXYzine PAMOATE 25 MG CAPSULE (FP) PO SCH ×5 (05:54→22:33)
[2021-03-09] MEDS: diazePAM 5 MG TABLET PO SCH ×3 (05:54→22:32)
[2021-03-09] MEDS: PRENATAL VITAMINS W/ FOLIC ACID TABLET (FP) PO SCH (11:06)
[2021-03-09] MEDS: diazePAM 5 MG TABLET PO PRN (18:12)
[2021-03-09] MEDS: METHOCARBAMOL 500 MG TABLET PO PRN (18:12)
[2021-03-09] MEDS: MELATONIN 5 MG TABLETS PO SCH (22:33)
[2021-03-09] MEDS: THIAMINE HCL 100 MG TABLET (FP) PO SCH (22:33)
[2021-03-10] MEDS: diazePAM 5 MG TABLET PO PRN (01:57)
[2021-03-10] MEDS: hydrOXYzine PAMOATE 25 MG CAPSULE (FP) PO SCH ×5 (06:51→22:15)
[2021-03-10] MEDS: diazePAM 5 MG TABLET PO SCH ×2 (07:03→18:50)
[2021-03-10] MEDS: PRENATAL VITAMINS W/ FOLIC ACID TABLET (FP) PO SCH (10:42)
[2021-03-10] MEDS: amLODIPine BESYLATE 10 MG TABLET (FP) PO SCH (12:14)
[2021-03-10] MEDS ORDERED: LORATADINE 10 MG TABLET PO SCH (22:00)
[2021-03-10] MEDS: MELATONIN 5 MG TABLETS PO SCH (22:15)
[2021-03-10] MEDS: THIAMINE HCL 100 MG TABLET (FP) PO SCH (22:15)
[2021-03-11] MEDS ORDERED: diazePAM 5 MG TABLET PO ONE (06:00)
[2021-03-11] MEDS: hydrOXYzine PAMOATE 25 MG CAPSULE (FP) PO SCH ×2 (06:19→09:56)
[2021-03-11 09:53] VITALS: BP 149/99; PULSE 84; TEMP 97.7
[2021-03-11] MEDS: amLODIPine BESYLATE 10 MG TABLET (FP) PO SCH (09:56)
[2021-03-11] MEDS: PRENATAL VITAMINS W/ FOLIC ACID TABLET (FP) PO SCH (09:56)
== END 2021-03-11 10:25 | disposition home or self-care (01) | DRG 774 ==
LOC: YASAS 11:24 → Y6N 19:25
PROVIDERS: ADMIT Allergy & Immunology; ATTEND Allergy & Immunology
PROC: HZ2ZZZZ Detoxification Services for Substance Abuse Treatment (ICD-10-PCS; principal; 2021-03-07)
DX: F10.230 Alcohol dependence with withdrawal, uncomplicated (principal); F14.20 Cocaine dependence, uncomplicated; F12.20 Cannabis dependence, uncomplicated; F17.213 Nicotine dependence, cigarettes, with withdrawal; I10 Essential (primary) hypertension
CPT/HCPCS: 36415; 80053; 85027; 86593; 86780; C9803; U0003; U0005

== ENCOUNTER 2021-04-08 16:51 | Inpatient (IN) | payer OTHER ==
[2021-04-08] MEDS ORDERED: MAG HYDROX/AL HYDROX/SIMETH 30 ML UNIT-DOSE CUP PO PRN (19:29)
[2021-04-08] MEDS ORDERED: MENTHOL/PHENOL 1 EACH UD MM PRN (19:29)
[2021-04-08] MEDS ORDERED: ACETAMINOPHEN 325 MG TABLET (FP) PO PRN (19:29)
[2021-04-08] MEDS ORDERED: MAGNESIUM CITRATE 300 ML BOTTLE PO PRN (19:29)
[2021-04-08] MEDS ORDERED: NICOTINE POLACRILEX 2 MG GUM BUC PRN (19:29)
[2021-04-08] MEDS ORDERED: ONDANSETRON *ODT* 4 MG TABLET SL PRN (19:29)
[2021-04-08] MEDS ORDERED: BISMUTH SUBSALICYLATE 524 MG/30 ML PO PRN (19:29)
[2021-04-08] MEDS ORDERED: MAGNESIUM HYDROX 2400MG/30ML ORAL SUSPENSION 30 ML CUP PO PRN (19:29)
[2021-04-08] MEDS ORDERED: IBUPROFEN 400 MG TABLET (FP) PO PRN (19:29)
[2021-04-08] MEDS ORDERED: chlordiazePOXIDE HCL 25 MG CAPSULE PO PRN (19:32)
[2021-04-08 21:19] VITALS: BMI 29.0
[2021-04-08] MEDS: THIAMINE HCL 100 MG TABLET (FP) PO SCH (22:43)
[2021-04-08] MEDS: MELATONIN 5 MG TABLETS PO SCH (22:43)
[2021-04-08] MEDS: diazePAM 5 MG TABLET PO SCH (22:44)
[2021-04-08] MEDS ORDERED: chlordiazePOXIDE HCL 25 MG CAPSULE PO SCH (23:00)
[2021-04-09] MEDS: diazePAM 5 MG TABLET PO SCH ×4 (07:37→22:11)
[2021-04-09] MEDS: PRENATAL VITAMINS W/ FOLIC ACID TABLET (FP) PO SCH (10:09)
[2021-04-09] MEDS: NICOTINE 14 MG/24 HOURS TOPICAL PATCH TD SCH (10:10)
[2021-04-09 10:33] LABS: HEMATOCRIT 41.3 % (35.4-49); HEMOGLOBIN 13.7 GM/dL (11.7-16.9); MCHC 33.2 g/dl (32.0-35.9); MEAN CELL VOLUME 87.3 fl (80-96); PLATELET COUNT 197 10^3/uL (134-434); RBC 4.73 M/mm3 (4.00-5.60); WHITE BLOOD COUNT 8.2 K/mm3 (4.0-10.0)
[2021-04-09 10:47] LABS: ALBUMIN 2.9 g/dl (3.4-5.0); CALCIUM 8.4 mg/dL (8.5-10.1)
[2021-04-09 10:48] LABS: BLOOD UREA NITROGEN 10.3 mg/dL (7-18)
[2021-04-09 10:52] LABS: TOT PROT 6.1 g/dl (6.4-8.2)
[2021-04-09 10:53] LABS: BILIRUBIN,TOTAL 1.2 mg/dL (0.2-1)
[2021-04-09] MEDS: MELATONIN 5 MG TABLETS PO SCH (22:10)
[2021-04-09] MEDS: THIAMINE HCL 100 MG TABLET (FP) PO SCH (22:10)
[2021-04-10] MEDS ORDERED: chlordiazePOXIDE HCL 25 MG CAPSULE PO SCH (05:00)
[2021-04-10] MEDS: diazePAM 5 MG TABLET PO SCH ×3 (05:48→22:26)
[2021-04-10] MEDS: METHOCARBAMOL 500 MG TABLET PO PRN ×2 (05:50→22:25)
[2021-04-10] MEDS ORDERED: cloNIDine HCL 0.1 MG TABLET PO ONE (07:27)
[2021-04-10] MEDS ORDERED: MASKS NR ONE (07:32)
[2021-04-10] MEDS: ACETAMINOPHEN 325 MG TABLET (FP) PO PRN (07:53)
[2021-04-10] MEDS: PRENATAL VITAMINS W/ FOLIC ACID TABLET (FP) PO SCH (10:43)
[2021-04-10] MEDS: NICOTINE 14 MG/24 HOURS TOPICAL PATCH TD SCH (10:43)
[2021-04-10] MEDS: amLODIPine BESYLATE 10 MG TABLET (FP) PO SCH (10:43)
[2021-04-10] MEDS: diazePAM 5 MG TABLET PO PRN (10:44)
[2021-04-10] MEDS ORDERED: PENICILLIN G BENZATHINE 2,400,000 UNIT/4 ML PFS IM ONE (12:21)
[2021-04-10] MEDS: THIAMINE HCL 100 MG TABLET (FP) PO SCH (22:25)
[2021-04-10] MEDS: MELATONIN 5 MG TABLETS PO SCH (22:25)
[2021-04-11] MEDS ORDERED: chlordiazePOXIDE HCL 10 MG CAPSULE PO PRN
[2021-04-11] MEDS: diazePAM 5 MG TABLET PO PRN (04:29)
[2021-04-11] MEDS: METHOCARBAMOL 500 MG TABLET PO PRN ×2 (04:33→18:17)
[2021-04-11] MEDS ORDERED: chlordiazePOXIDE HCL 10 MG CAPSULE PO SCH (05:00)
[2021-04-11] MEDS: diazePAM 5 MG TABLET PO SCH ×2 (06:31→18:16)
[2021-04-11] MEDS: amLODIPine BESYLATE 10 MG TABLET (FP) PO SCH (10:58)
[2021-04-11] MEDS: PRENATAL VITAMINS W/ FOLIC ACID TABLET (FP) PO SCH (10:58)
[2021-04-11] MEDS: NICOTINE 14 MG/24 HOURS TOPICAL PATCH TD SCH (12:42)
[2021-04-11] MEDS ORDERED: AZITHROMYCIN 250 MG TABLET PO ONE (13:00)
[2021-04-11] MEDS ORDERED: cloNIDine HCL 0.1 MG TABLET PO ONE (13:05)
[2021-04-11] MEDS: FLUTICASONE PROP 0.05% 16 GM NASAL SPRAY NS SCH ×2 (15:47→22:55)
[2021-04-11] MEDS: ACETAMINOPHEN 325 MG TABLET (FP) PO PRN (16:38)
[2021-04-11] MEDS: guaiFENesin 200 MG/10 ML 10 ML UNIT-DOSE CUPS PO PRN (16:39)
[2021-04-11] MEDS: THIAMINE HCL 100 MG TABLET (FP) PO SCH ×2 (22:55→23:26)
[2021-04-11] MEDS: MELATONIN 5 MG TABLETS PO SCH ×2 (22:55→23:25)
[2021-04-12] MEDS ORDERED: chlordiazePOXIDE HCL 10 MG CAPSULE PO SCH (05:00)
[2021-04-12] MEDS ORDERED: diazePAM 5 MG TABLET PO ONE (06:00)
[2021-04-12] MEDS: FLUTICASONE PROP 0.05% 16 GM NASAL SPRAY NS SCH ×2 (10:04→22:20)
[2021-04-12] MEDS: NICOTINE 14 MG/24 HOURS TOPICAL PATCH TD SCH (10:05)
[2021-04-12] MEDS: amLODIPine BESYLATE 10 MG TABLET (FP) PO SCH (10:05)
[2021-04-12] MEDS: AZITHROMYCIN 250 MG TABLET PO SCH (10:06)
[2021-04-12] MEDS: PRENATAL VITAMINS W/ FOLIC ACID TABLET (FP) PO SCH (10:06)
[2021-04-12] MEDS: MELATONIN 5 MG TABLETS PO SCH (22:20)
[2021-04-12] MEDS: guaiFENesin 200 MG/10 ML 10 ML UNIT-DOSE CUPS PO PRN (22:22)
[2021-04-12] MEDS: THIAMINE HCL 100 MG TABLET (FP) PO SCH (22:22)
[2021-04-12] MEDS: METHOCARBAMOL 500 MG TABLET PO PRN (22:22)
[2021-04-13] MEDS ORDERED: chlordiazePOXIDE HCL 10 MG CAPSULE PO ONE (05:00)
[2021-04-13 09:23] VITALS: BP 145/103; PULSE 82; TEMP 96.9
[2021-04-13] MEDS: amLODIPine BESYLATE 10 MG TABLET (FP) PO SCH (09:49)
[2021-04-13] MEDS: AZITHROMYCIN 250 MG TABLET PO SCH (09:49)
[2021-04-13] MEDS: PRENATAL VITAMINS W/ FOLIC ACID TABLET (FP) PO SCH (09:49)
[2021-04-13] MEDS: NICOTINE 14 MG/24 HOURS TOPICAL PATCH TD SCH (09:50)
[2021-04-13] MEDS: FLUTICASONE PROP 0.05% 16 GM NASAL SPRAY NS SCH (09:51)
== END 2021-04-13 10:26 | disposition other institution (70) | DRG 774 ==
LOC: YASAS 16:51 → Y3N 20:35
PROVIDERS: ADMIT Allergy & Immunology; ATTEND Allergy & Immunology
PROC: HZ2ZZZZ Detoxification Services for Substance Abuse Treatment (ICD-10-PCS; principal; 2021-04-08)
DX: F10.230 Alcohol dependence with withdrawal, uncomplicated (principal); F14.20 Cocaine dependence, uncomplicated; F16.20 Hallucinogen dependence, uncomplicated; F17.210 Nicotine dependence, cigarettes, uncomplicated; I10 Essential (primary) hypertension; E46 Unspecified protein-calorie malnutrition; Z68.29 Body mass index [BMI] 29.0-29.9, adult; Z86.11 Personal history of tuberculosis; Z86.19 Personal history of other infectious and parasitic diseases
CPT/HCPCS: 36415; 80053; 85027; 86593; 86780; C9803; J0735; U0003; U0005

== ENCOUNTER 2021-09-03 13:23 | Inpatient (IN) | payer OTHER ==
[2021-09-03] MEDS ORDERED: ONDANSETRON *ODT* 4 MG TABLET SL PRN (14:08)
[2021-09-03] MEDS ORDERED: MAGNESIUM CITRATE 300 ML BOTTLE PO PRN (14:08)
[2021-09-03] MEDS ORDERED: ACETAMINOPHEN 325 MG TABLET (FP) PO PRN ×2 (14:08)
[2021-09-03] MEDS ORDERED: DICYCLOMINE HCL 10 MG CAPSULE PO PRN (14:08)
[2021-09-03] MEDS ORDERED: MAG HYDROX/AL HYDROX/SIMETH 30 ML UNIT-DOSE CUP PO PRN (14:08)
[2021-09-03] MEDS ORDERED: MAGNESIUM HYDROX 2400MG/30ML ORAL SUSPENSION 30 ML CUP PO PRN (14:08)
[2021-09-03] MEDS ORDERED: NICOTINE 10 MG CARTRIDGE (INHALER) IH PRN (14:08)
[2021-09-03] MEDS ORDERED: LOPERAMIDE HCL 2 MG CAPSULE PO PRN (14:08)
[2021-09-03] MEDS ORDERED: chlordiazePOXIDE HCL 25 MG CAPSULE PO PRN (14:08)
[2021-09-03] MEDS ORDERED: IBUPROFEN 400 MG TABLET (FP) PO PRN (14:08)
[2021-09-03] MEDS ORDERED: BISMUTH SUBSALICYLATE 262 MG/15 ML BTL PO PRN (14:08)
[2021-09-03] MEDS ORDERED: BENZOCAINE/MENTHOL (CHLORASEPTIC ) LOZENGE MM PRN (14:08)
[2021-09-03 14:22] VITALS: BMI 28.0
[2021-09-03] MEDS: chlordiazePOXIDE HCL 25 MG CAPSULE PO SCH ×2 (18:36→22:27)
[2021-09-03] MEDS: hydrOXYzine PAMOATE 25 MG CAPSULE (FP) PO SCH ×2 (18:39→22:30)
[2021-09-03] MEDS: THIAMINE HCL 100 MG TABLET (FP) PO SCH (22:27)
[2021-09-03] MEDS: MELATONIN 5 MG TABLETS PO SCH (22:28)
[2021-09-04] MEDS: chlordiazePOXIDE HCL 25 MG CAPSULE PO SCH ×4 (06:33→22:53)
[2021-09-04] MEDS: hydrOXYzine PAMOATE 25 MG CAPSULE (FP) PO SCH ×5 (06:33→22:52)
[2021-09-04 10:02] LABS: HEMATOCRIT 35.6 % (35.4-49); HEMOGLOBIN 11.9 GM/dL (11.7-16.9); MCH 28.5 pg (25.7-33.7); MCHC 33.5 g/dl (32.0-35.9); MEAN CELL VOLUME 85.3 fl (80-96); MEAN PLT VOLUME 7.3 fl (7.5-11.1); PLATELET COUNT 390 10^3/uL (134-434); RBC 4.17 M/mm3 (4.00-5.60); RDW 15.5 % (11.9-15.9); WHITE BLOOD COUNT 5.3 K/mm3 (4.0-10.0)
[2021-09-04 10:04] LABS: BLOOD UREA NITROGEN 14.4 mg/dL (7-18); CALCIUM 8.7 mg/dL (8.5-10.1)
[2021-09-04 10:07] LABS: CREATININE 1.4 mg/dL (0.55-1.3)
[2021-09-04 10:09] LABS: BILIRUBIN,TOTAL 0.8 mg/dL (0.2-1); TOT PROT 6.8 g/dl (6.4-8.2)
[2021-09-04] MEDS: PRENATAL VITAMINS W/ FOLIC ACID TABLET (FP) PO SCH (11:12)
[2021-09-04] MEDS: THIAMINE HCL 100 MG TABLET (FP) PO SCH (22:52)
[2021-09-04] MEDS: METHOCARBAMOL 500 MG TABLET PO PRN (22:55)
[2021-09-04] MEDS: MELATONIN 5 MG TABLETS PO SCH (22:58)
[2021-09-05] MEDS: chlordiazePOXIDE HCL 25 MG CAPSULE PO SCH ×4 (06:50→22:01)
[2021-09-05] MEDS: hydrOXYzine PAMOATE 25 MG CAPSULE (FP) PO SCH ×5 (06:58→23:10)
[2021-09-05] MEDS: PRENATAL VITAMINS W/ FOLIC ACID TABLET (FP) PO SCH (10:43)
[2021-09-05 14:08] LABS: SARS-CoV-2 NAA Not Detected (Not Detected)
[2021-09-05] MEDS: THIAMINE HCL 100 MG TABLET (FP) PO SCH (22:01)
[2021-09-05] MEDS: METHOCARBAMOL 500 MG TABLET PO PRN (22:02)
[2021-09-05] MEDS: MELATONIN 5 MG TABLETS PO SCH (22:02)
[2021-09-06] MEDS ORDERED: chlordiazePOXIDE HCL 10 MG CAPSULE PO PRN
[2021-09-06] MEDS: chlordiazePOXIDE HCL 10 MG CAPSULE PO SCH ×4 (08:02→22:16)
[2021-09-06] MEDS: hydrOXYzine PAMOATE 25 MG CAPSULE (FP) PO SCH ×5 (08:02→22:17)
[2021-09-06] MEDS: PRENATAL VITAMINS W/ FOLIC ACID TABLET (FP) PO SCH (12:00)
[2021-09-06] MEDS: THIAMINE HCL 100 MG TABLET (FP) PO SCH (22:17)
[2021-09-06] MEDS: MELATONIN 5 MG TABLETS PO SCH (22:17)
[2021-09-06] MEDS: METHOCARBAMOL 500 MG TABLET PO PRN (22:18)
[2021-09-07] MEDS: chlordiazePOXIDE HCL 10 MG CAPSULE PO SCH ×2 (06:59→18:27)
[2021-09-07] MEDS: hydrOXYzine PAMOATE 25 MG CAPSULE (FP) PO SCH ×5 (06:59→21:46)
[2021-09-07] MEDS: PRENATAL VITAMINS W/ FOLIC ACID TABLET (FP) PO SCH (11:07)
[2021-09-07] MEDS: amLODIPine BESYLATE 5 MG TABLET (FP) PO SCH (15:26)
[2021-09-07] MEDS: THIAMINE HCL 100 MG TABLET (FP) PO SCH (21:45)
[2021-09-07] MEDS: METHOCARBAMOL 500 MG TABLET PO PRN (21:46)
[2021-09-07] MEDS: MELATONIN 5 MG TABLETS PO SCH (21:47)
[2021-09-08] MEDS ORDERED: chlordiazePOXIDE HCL 10 MG CAPSULE PO ONE (05:00)
[2021-09-08] MEDS: hydrOXYzine PAMOATE 25 MG CAPSULE (FP) PO SCH ×2 (06:50→11:15)
[2021-09-08] MEDS ORDERED: amLODIPine BESYLATE 5 MG TABLET (FP) PO SCH (10:15)
[2021-09-08] MEDS: PRENATAL VITAMINS W/ FOLIC ACID TABLET (FP) PO SCH (11:15)
[2021-09-08] MEDS: amLODIPine BESYLATE 5 MG TABLET (FP) PO SCH (11:15)
[2021-09-08 13:11] VITALS: BP 130/81; PULSE 86; TEMP 97.8
== END 2021-09-08 02:13 | disposition other institution (70) | DRG 774 ==
LOC: YASAS 13:23 → Y6N 17:05
PROVIDERS: ADMIT Allergy & Immunology; ATTEND Allergy & Immunology
PROC: HZ2ZZZZ Detoxification Services for Substance Abuse Treatment (ICD-10-PCS; principal; 2021-09-03)
DX: F10.230 Alcohol dependence with withdrawal, uncomplicated (principal); F14.20 Cocaine dependence, uncomplicated; F12.10 Cannabis abuse, uncomplicated; F17.210 Nicotine dependence, cigarettes, uncomplicated; I10 Essential (primary) hypertension; R73.9 Hyperglycemia, unspecified; Z86.19 Personal history of other infectious and parasitic diseases; Z86.11 Personal history of tuberculosis
CPT/HCPCS: 36415; 80053; 83036; 85027; 86593; 86780; C9803-CS; U0003; U0005

== ENCOUNTER 2021-09-08 14:51 | Inpatient (IN) | payer OTHER ==
[2021-09-08] MEDS ORDERED: MAGNESIUM CITRATE 300 ML BOTTLE PO PRN (15:35)
[2021-09-08] MEDS ORDERED: MAG HYDROX/AL HYDROX/SIMETH 30 ML UNIT-DOSE CUP PO PRN (15:35)
[2021-09-08] MEDS ORDERED: ACETAMINOPHEN 325 MG TABLET (FP) PO PRN (15:35)
[2021-09-08] MEDS ORDERED: BENZOCAINE/MENTHOL (CHLORASEPTIC ) LOZENGE MM PRN (15:35)
[2021-09-08] MEDS ORDERED: IBUPROFEN 400 MG TABLET (FP) PO PRN (15:35)
[2021-09-08] MEDS ORDERED: P-EPHED 60MG/TRIPROLIDI 2.5MG TABLET PO PRN (15:35)
[2021-09-08] MEDS ORDERED: MAGNESIUM HYDROX 2400MG/30ML ORAL SUSPENSION 30 ML CUP PO PRN (15:35)
[2021-09-08] MEDS ORDERED: NICOTINE 10 MG CARTRIDGE (INHALER) IH PRN (15:35)
[2021-09-08] MEDS ORDERED: LOPERAMIDE HCL 2 MG CAPSULE PO PRN (15:35)
[2021-09-08] MEDS ORDERED: guaiFENesin 200 MG/10 ML 10 ML UNIT-DOSE CUPS PO PRN (15:35)
[2021-09-08] MEDS: hydrOXYzine PAMOATE 25 MG CAPSULE (FP) PO SCH ×2 (19:13→22:13)
[2021-09-08] MEDS: MELATONIN 5 MG TABLETS PO SCH (22:13)
[2021-09-08] MEDS: THIAMINE HCL 100 MG TABLET (FP) PO SCH (22:13)
[2021-09-09] MEDS: hydrOXYzine PAMOATE 25 MG CAPSULE (FP) PO SCH ×5 (06:56→21:44)
[2021-09-09] MEDS: PRENATAL VITAMINS W/ FOLIC ACID TABLET (FP) PO SCH (11:00)
[2021-09-09] MEDS: amLODIPine BESYLATE 5 MG TABLET (FP) PO SCH (11:00)
[2021-09-09] MEDS: MELATONIN 5 MG TABLETS PO SCH (21:44)
[2021-09-09] MEDS: THIAMINE HCL 100 MG TABLET (FP) PO SCH (21:44)
[2021-09-10] MEDS: hydrOXYzine PAMOATE 25 MG CAPSULE (FP) PO SCH ×5 (07:15→21:07)
[2021-09-10] MEDS: amLODIPine BESYLATE 5 MG TABLET (FP) PO SCH (10:34)
[2021-09-10] MEDS: PRENATAL VITAMINS W/ FOLIC ACID TABLET (FP) PO SCH (10:36)
[2021-09-10] MEDS: THIAMINE HCL 100 MG TABLET (FP) PO SCH (21:07)
[2021-09-10] MEDS: MELATONIN 5 MG TABLETS PO SCH (21:07)
[2021-09-11] MEDS: hydrOXYzine PAMOATE 25 MG CAPSULE (FP) PO SCH ×2 (06:27→10:41)
[2021-09-11 07:16] VITALS: BP 130/89; PULSE 78; TEMP 98.1
[2021-09-11] MEDS: amLODIPine BESYLATE 5 MG TABLET (FP) PO SCH (09:55)
[2021-09-11] MEDS: PRENATAL VITAMINS W/ FOLIC ACID TABLET (FP) PO SCH (10:41)
[2021-09-11] MEDS ORDERED: hydrOXYzine PAMOATE 25 MG CAPSULE (FP) PO PRN (10:44)
== END 2021-09-11 13:27 | disposition home or self-care (01) | DRG 772 ==
LOC: YASAS 14:51 → Y3W 14:52
PROVIDERS: ADMIT Allergy & Immunology; ATTEND Allergy & Immunology
PROC: HZ42ZZZ Group Counseling for Substance Abuse Treatment, Cognitive-Behavioral (ICD-10-PCS; principal; 2021-09-08)
DX: F10.20 Alcohol dependence, uncomplicated (principal); F14.20 Cocaine dependence, uncomplicated; F12.20 Cannabis dependence, uncomplicated; I10 Essential (primary) hypertension; R73.9 Hyperglycemia, unspecified; Z86.19 Personal history of other infectious and parasitic diseases

== ENCOUNTER 2021-12-08 12:19 | Inpatient (IN) | payer OTHER ==
[2021-12-08 13:06] VITALS: BMI 28.3
[2021-12-08] MEDS ORDERED: MAGNESIUM CITRATE 300 ML BOTTLE PO PRN (13:40)
[2021-12-08] MEDS ORDERED: MAGNESIUM HYDROX 2400MG/30ML ORAL SUSPENSION 30 ML CUP PO PRN (13:40)
[2021-12-08] MEDS ORDERED: DICYCLOMINE HCL 10 MG CAPSULE PO PRN (13:40)
[2021-12-08] MEDS ORDERED: chlordiazePOXIDE HCL 25 MG CAPSULE PO PRN (13:40)
[2021-12-08] MEDS ORDERED: ACETAMINOPHEN 325 MG TABLET (FP) PO PRN (13:40)
[2021-12-08] MEDS ORDERED: BISMUTH SUBSALICYLATE 262 MG/15 ML BTL PO PRN (13:40)
[2021-12-08] MEDS ORDERED: MAG HYDROX/AL HYDROX/SIMETH 30 ML UNIT-DOSE CUP PO PRN (13:40)
[2021-12-08] MEDS ORDERED: BENZOCAINE/MENTHOL (CHLORASEPTIC ) LOZENGE MM PRN (13:40)
[2021-12-08] MEDS ORDERED: IBUPROFEN 400 MG TABLET (FP) PO PRN (13:40)
[2021-12-08] MEDS ORDERED: ONDANSETRON *ODT* 4 MG TABLET SL PRN (13:40)
[2021-12-08] MEDS: hydrOXYzine PAMOATE 25 MG CAPSULE (FP) PO SCH ×3 (14:18→22:37)
[2021-12-08] MEDS: amLODIPine BESYLATE 5 MG TABLET (FP) PO SCH (14:23)
[2021-12-08] MEDS: chlordiazePOXIDE HCL 25 MG CAPSULE PO SCH ×2 (17:40→22:36)
[2021-12-08] MEDS: ACETAMINOPHEN 325 MG TABLET (FP) PO PRN (17:41)
[2021-12-08] MEDS: MELATONIN 5 MG TABLETS PO SCH (22:37)
[2021-12-08] MEDS: THIAMINE HCL 100 MG TABLET (FP) PO SCH (22:37)
[2021-12-09] MEDS: chlordiazePOXIDE HCL 25 MG CAPSULE PO SCH ×4 (06:30→22:36)
[2021-12-09] MEDS: hydrOXYzine PAMOATE 25 MG CAPSULE (FP) PO SCH ×5 (06:30→22:35)
[2021-12-09] MEDS: amLODIPine BESYLATE 5 MG TABLET (FP) PO SCH (10:40)
[2021-12-09] MEDS: PRENATAL VITAMINS W/ FOLIC ACID TABLET (FP) PO SCH (10:40)
[2021-12-09 12:15] LABS: HEMATOCRIT 39.5 % (35.4-49); HEMOGLOBIN 12.6 GM/dL (11.7-16.9); MCH 26.4 pg (25.7-33.7); MCHC 31.8 g/dl (32.0-35.9); MEAN CELL VOLUME 82.9 fl (80-96); PLATELET COUNT 269 10^3/uL (134-434); RBC 4.76 M/mm3 (4.00-5.60); WHITE BLOOD COUNT 9.6 K/mm3 (4.0-10.0)
[2021-12-09 13:37] LABS: CALCIUM 8.3 mg/dL (8.5-10.1)
[2021-12-09 13:38] LABS: BLOOD UREA NITROGEN 11.3 mg/dL (7-18)
[2021-12-09 13:42] LABS: BILIRUBIN,TOTAL 0.3 mg/dL (0.2-1); TOT PROT 6.6 g/dl (6.4-8.2)
[2021-12-09] MEDS: THIAMINE HCL 100 MG TABLET (FP) PO SCH (22:35)
[2021-12-09] MEDS: MELATONIN 5 MG TABLETS PO SCH (22:35)
[2021-12-09] MEDS: LOPERAMIDE HCL 2 MG CAPSULE PO PRN (22:38)
[2021-12-09] MEDS: IBUPROFEN 600 MG TABLET (FP) PO PRN (22:38)
[2021-12-09] MEDS: METHOCARBAMOL 500 MG TABLET PO PRN (22:38)
[2021-12-09] MEDS ORDERED: cloNIDine HCL 0.1 MG TABLET PO ONE (23:10)
[2021-12-10] MEDS: hydrOXYzine PAMOATE 25 MG CAPSULE (FP) PO SCH ×5 (07:30→22:28)
[2021-12-10] MEDS: chlordiazePOXIDE HCL 25 MG CAPSULE PO SCH ×4 (07:30→22:28)
[2021-12-10] MEDS: PRENATAL VITAMINS W/ FOLIC ACID TABLET (FP) PO SCH (11:06)
[2021-12-10] MEDS: amLODIPine BESYLATE 5 MG TABLET (FP) PO SCH (11:07)
[2021-12-10] MEDS: IBUPROFEN 600 MG TABLET (FP) PO PRN (18:21)
[2021-12-10] MEDS: METHOCARBAMOL 500 MG TABLET PO PRN (18:21)
[2021-12-10] MEDS: LOPERAMIDE HCL 2 MG CAPSULE PO PRN (18:26)
[2021-12-10] MEDS: ACETAMINOPHEN 325 MG TABLET (FP) PO PRN (22:28)
[2021-12-10] MEDS: MELATONIN 5 MG TABLETS PO SCH (22:28)
[2021-12-10] MEDS: THIAMINE HCL 100 MG TABLET (FP) PO SCH (22:28)
[2021-12-11] MEDS ORDERED: chlordiazePOXIDE HCL 10 MG CAPSULE PO PRN
[2021-12-11] MEDS: hydrOXYzine PAMOATE 25 MG CAPSULE (FP) PO SCH ×5 (06:22→22:29)
[2021-12-11] MEDS: chlordiazePOXIDE HCL 10 MG CAPSULE PO SCH ×4 (06:22→22:29)
[2021-12-11] MEDS: amLODIPine BESYLATE 5 MG TABLET (FP) PO SCH (11:20)
[2021-12-11] MEDS: PRENATAL VITAMINS W/ FOLIC ACID TABLET (FP) PO SCH (11:20)
[2021-12-11] MEDS: THIAMINE HCL 100 MG TABLET (FP) PO SCH (22:29)
[2021-12-11] MEDS: MELATONIN 5 MG TABLETS PO SCH (22:29)
[2021-12-11] MEDS: METHOCARBAMOL 500 MG TABLET PO PRN (22:30)
[2021-12-12] MEDS ORDERED: MELATONIN 5 MG TABLETS PO PRN (00:57)
[2021-12-12] MEDS ORDERED: chlordiazePOXIDE HCL 10 MG CAPSULE PO SCH (05:00)
[2021-12-12 06:17] VITALS: BP 118/77; PULSE 79; TEMP 98.2
[2021-12-12] MEDS: hydrOXYzine PAMOATE 25 MG CAPSULE (FP) PO SCH (08:13)
[2021-12-13] MEDS ORDERED: chlordiazePOXIDE HCL 10 MG CAPSULE PO ONE (05:00)
== END 2021-12-12 08:57 | disposition home or self-care (01) | DRG 774 ==
LOC: YASAS 12:19 → Y3N 13:31
PROVIDERS: ADMIT Allergy & Immunology; ATTEND Surgery
PROC: HZ2ZZZZ Detoxification Services for Substance Abuse Treatment (ICD-10-PCS; principal; 2021-12-08)
DX: F10.230 Alcohol dependence with withdrawal, uncomplicated (principal); F14.20 Cocaine dependence, uncomplicated; F12.20 Cannabis dependence, uncomplicated; I10 Essential (primary) hypertension; Z87.891 Personal history of nicotine dependence; Z86.19 Personal history of other infectious and parasitic diseases
CPT/HCPCS: 36415; 80053; 83036; 85027; 86593; 86780; C9803-CS; J0735; U0003; U0005

== ENCOUNTER 2022-01-24 15:10 | Inpatient (IN) | payer OTHER ==
[2022-01-24 16:05] VITALS: RESP 18; BMI 25.0
[2022-01-24] MEDS ORDERED: LOPERAMIDE HCL 2 MG CAPSULE PO PRN (16:34)
[2022-01-24] MEDS ORDERED: MAG HYDROX/AL HYDROX/SIMETH 30 ML UNIT-DOSE CUP PO PRN (16:34)
[2022-01-24] MEDS ORDERED: BENZOCAINE/MENTHOL (CHLORASEPTIC ) LOZENGE MM PRN (16:34)
[2022-01-24] MEDS ORDERED: DICYCLOMINE HCL 10 MG CAPSULE PO PRN (16:34)
[2022-01-24] MEDS ORDERED: MAGNESIUM HYDROX 2400MG/30ML ORAL SUSPENSION 30 ML CUP PO PRN (16:34)
[2022-01-24] MEDS ORDERED: BISMUTH SUBSALICYLATE 524 MG/30 ML PO PRN (16:34)
[2022-01-24] MEDS ORDERED: IBUPROFEN 400 MG TABLET (FP) PO PRN (16:34)
[2022-01-24] MEDS ORDERED: P-EPHED 60MG/TRIPROLIDI 2.5MG TABLET PO PRN (16:34)
[2022-01-24] MEDS ORDERED: METHOCARBAMOL 500 MG TABLET PO PRN (16:34)
[2022-01-24] MEDS ORDERED: ONDANSETRON *ODT* 4 MG TABLET SL PRN (16:34)
[2022-01-24] MEDS ORDERED: ACETAMINOPHEN 325 MG TABLET (FP) PO PRN ×2 (16:34)
[2022-01-24] MEDS ORDERED: IBUPROFEN 600 MG TABLET (FP) PO PRN (16:34)
[2022-01-24] MEDS ORDERED: guaiFENesin 200 MG/10 ML 10 ML UNIT-DOSE CUPS PO PRN (16:34)
[2022-01-24] MEDS ORDERED: MAGNESIUM CITRATE 300 ML BOTTLE PO PRN (16:34)
[2022-01-24] MEDS ORDERED: chlordiazePOXIDE HCL 25 MG CAPSULE PO PRN (16:37)
[2022-01-24] MEDS: hydrOXYzine PAMOATE 25 MG CAPSULE (FP) PO PRN (18:32)
[2022-01-24] MEDS: chlordiazePOXIDE HCL 25 MG CAPSULE PO SCH (23:02)
[2022-01-24] MEDS: THIAMINE HCL 100 MG TABLET (FP) PO SCH (23:03)
[2022-01-25] MEDS ORDERED: cloNIDine HCL 0.1 MG TABLET PO ONE (06:49)
[2022-01-25] MEDS: chlordiazePOXIDE HCL 25 MG CAPSULE PO SCH ×4 (06:53→23:16)
[2022-01-25] MEDS: PRENATAL VITAMINS W/ FOLIC ACID TABLET (FP) PO SCH (10:40)
[2022-01-25 12:41] LABS: HEMATOCRIT 42.8 % (35.4-49); HEMOGLOBIN 13.6 GM/dL (11.7-16.9); MCH 26.1 pg (25.7-33.7); MCHC 31.7 g/dl (32.0-35.9); MEAN CELL VOLUME 82.2 fl (80-96); MEAN PLT VOLUME 7.7 fl (7.5-11.1); PLATELET COUNT 286 10^3/uL (134-434); RDW 18.1 % (11.9-15.9); WHITE BLOOD COUNT 6.3 K/mm3 (4.0-10.0)
[2022-01-25 12:44] LABS: ALBUMIN 2.7 g/dl (3.4-5.0); BLOOD UREA NITROGEN 13.4 mg/dL (7-18); CALCIUM 8.3 mg/dL (8.5-10.1)
[2022-01-25 12:49] LABS: BILIRUBIN,TOTAL 0.3 mg/dL (0.2-1); TOT PROT 5.7 g/dl (6.4-8.2)
[2022-01-25] MEDS: hydrOXYzine PAMOATE 25 MG CAPSULE (FP) PO PRN ×2 (18:00→23:17)
[2022-01-25] MEDS ORDERED: LISINOPRIL 5 MG TABLET PO ONE (18:24)
[2022-01-25] MEDS: THIAMINE HCL 100 MG TABLET (FP) PO SCH (23:16)
[2022-01-26] MEDS: chlordiazePOXIDE HCL 10 MG CAPSULE PO SCH ×4 (08:06→22:39)
[2022-01-26] MEDS: PRENATAL VITAMINS W/ FOLIC ACID TABLET (FP) PO SCH (10:46)
[2022-01-26] MEDS: cloNIDine HCL 0.1 MG TABLET PO SCH ×2 (10:46→22:39)
[2022-01-26] MEDS ORDERED: cloNIDine HCL 0.1 MG TABLET PO STA (17:26)
[2022-01-26] MEDS: THIAMINE HCL 100 MG TABLET (FP) PO SCH (22:39)
[2022-01-26] MEDS: MELATONIN 5 MG TABLETS PO PRN (22:39)
[2022-01-27] MEDS ORDERED: chlordiazePOXIDE HCL 10 MG CAPSULE PO PRN
[2022-01-27] MEDS: chlordiazePOXIDE HCL 10 MG CAPSULE PO SCH ×2 (06:47→17:38)
[2022-01-27] MEDS: PRENATAL VITAMINS W/ FOLIC ACID TABLET (FP) PO SCH (10:43)
[2022-01-27] MEDS: cloNIDine HCL 0.1 MG TABLET PO SCH ×2 (10:43→22:07)
[2022-01-27] MEDS: MELATONIN 5 MG TABLETS PO PRN (22:10)
[2022-01-27] MEDS: THIAMINE HCL 100 MG TABLET (FP) PO SCH (22:10)
[2022-01-28] MEDS ORDERED: chlordiazePOXIDE HCL 10 MG CAPSULE PO ONE (05:00)
[2022-01-28 09:17] VITALS: BP 136/90; PULSE 70; TEMP 97.3
== END 2022-01-28 10:28 | disposition home or self-care (01) | DRG 774 ==
LOC: YASAS 15:10 → Y3N 17:45
PROVIDERS: ADMIT Allergy & Immunology; ATTEND Surgery
PROC: HZ2ZZZZ Detoxification Services for Substance Abuse Treatment (ICD-10-PCS; principal; 2022-01-24)
DX: F10.230 Alcohol dependence with withdrawal, uncomplicated (principal); F14.20 Cocaine dependence, uncomplicated; F12.20 Cannabis dependence, uncomplicated; I10 Essential (primary) hypertension; Z87.891 Personal history of nicotine dependence
CPT/HCPCS: 36415; 80053; 85027; 86593; 86780; 87811; C9803-CS; U0003; U0005

== ENCOUNTER 2022-03-23 13:50 | Inpatient (IN) | payer OTHER ==
[2022-03-23 17:46] VITALS: BMI 23.7
[2022-03-23] MEDS ORDERED: ONDANSETRON *ODT* 4 MG TABLET SL PRN (17:49)
[2022-03-23] MEDS ORDERED: IBUPROFEN 600 MG TABLET (FP) PO PRN (17:49)
[2022-03-23] MEDS ORDERED: BISMUTH SUBSALICYLATE 524 MG/30 ML PO PRN (17:49)
[2022-03-23] MEDS ORDERED: IBUPROFEN 400 MG TABLET (FP) PO PRN (17:49)
[2022-03-23] MEDS ORDERED: BENZOCAINE/MENTHOL (CHLORASEPTIC ) LOZENGE MM PRN (17:49)
[2022-03-23] MEDS ORDERED: MAG HYDROX/AL HYDROX/SIMETH 30 ML UNIT-DOSE CUP PO PRN (17:49)
[2022-03-23] MEDS ORDERED: DICYCLOMINE HCL 10 MG CAPSULE PO PRN (17:49)
[2022-03-23] MEDS ORDERED: LOPERAMIDE HCL 2 MG CAPSULE PO PRN (17:49)
[2022-03-23] MEDS ORDERED: MAGNESIUM CITRATE 300 ML BOTTLE PO PRN (17:49)
[2022-03-23] MEDS ORDERED: ACETAMINOPHEN 325 MG TABLET (FP) PO PRN ×2 (17:49)
[2022-03-23] MEDS ORDERED: MAGNESIUM HYDROX 2400MG/30ML ORAL SUSPENSION 30 ML CUP PO PRN (17:49)
[2022-03-23] MEDS: THIAMINE HCL 100 MG TABLET (FP) PO SCH (22:30)
[2022-03-23] MEDS: MELATONIN 5 MG TABLETS PO SCH (22:30)
[2022-03-24] MEDS: METHOCARBAMOL 500 MG TABLET PO PRN ×3 (06:56→22:31)
[2022-03-24] MEDS: hydrOXYzine PAMOATE 25 MG CAPSULE (FP) PO PRN ×3 (06:56→22:31)
[2022-03-24] MEDS ORDERED: chlordiazePOXIDE HCL 25 MG CAPSULE PO PRN (09:21)
[2022-03-24] MEDS: PRENATAL VITAMINS W/ FOLIC ACID TABLET (FP) PO SCH (10:54)
[2022-03-24] MEDS: chlordiazePOXIDE HCL 25 MG CAPSULE PO SCH ×3 (10:55→22:30)
[2022-03-24 12:59] LABS: HEMATOCRIT 41.9 % (35.4-49); HEMOGLOBIN 13.6 GM/dL (11.7-16.9); MCH 26.8 pg (25.7-33.7); MCHC 32.5 g/dl (32.0-35.9); MEAN CELL VOLUME 82.3 fl (80-96); MEAN PLT VOLUME 7.9 fl (7.5-11.1); PLATELET COUNT 259 10^3/uL (134-434); RBC 5.09 M/mm3 (4.00-5.60); RDW 18.2 % (11.9-15.9); WHITE BLOOD COUNT 9.2 K/mm3 (4.0-10.0)
[2022-03-24 13:07] LABS: CALCIUM 8.6 mg/dL (8.5-10.1)
[2022-03-24 13:11] LABS: CREATININE 1.3 mg/dL (0.55-1.3)
[2022-03-24 13:13] LABS: BILIRUBIN,TOTAL 0.7 mg/dL (0.2-1); TOT PROT 6.2 g/dl (6.4-8.2)
[2022-03-24] MEDS: MELATONIN 5 MG TABLETS PO SCH (22:30)
[2022-03-24] MEDS: THIAMINE HCL 100 MG TABLET (FP) PO SCH (22:30)
[2022-03-25] MEDS: chlordiazePOXIDE HCL 25 MG CAPSULE PO SCH ×4 (05:47→23:22)
[2022-03-25] MEDS: PRENATAL VITAMINS W/ FOLIC ACID TABLET (FP) PO SCH (10:28)
[2022-03-25] MEDS: THIAMINE HCL 100 MG TABLET (FP) PO SCH (23:01)
[2022-03-25] MEDS: MELATONIN 5 MG TABLETS PO SCH (23:23)
[2022-03-26] MEDS: chlordiazePOXIDE HCL 25 MG CAPSULE PO SCH ×4 (05:55→23:40)
[2022-03-26] MEDS: PRENATAL VITAMINS W/ FOLIC ACID TABLET (FP) PO SCH (10:29)
[2022-03-26] MEDS: hydrOXYzine PAMOATE 25 MG CAPSULE (FP) PO PRN ×2 (18:35→23:39)
[2022-03-26] MEDS: MELATONIN 5 MG TABLETS PO SCH (23:38)
[2022-03-26] MEDS: THIAMINE HCL 100 MG TABLET (FP) PO SCH (23:39)
[2022-03-26] MEDS: METHOCARBAMOL 500 MG TABLET PO PRN (23:39)
[2022-03-27] MEDS ORDERED: chlordiazePOXIDE HCL 10 MG CAPSULE PO PRN
[2022-03-27] MEDS: chlordiazePOXIDE HCL 10 MG CAPSULE PO SCH ×4 (05:02→22:46)
[2022-03-27] MEDS: hydrOXYzine PAMOATE 25 MG CAPSULE (FP) PO PRN ×2 (07:36→22:50)
[2022-03-27] MEDS: METHOCARBAMOL 500 MG TABLET PO PRN ×2 (07:36→18:12)
[2022-03-27] MEDS: PRENATAL VITAMINS W/ FOLIC ACID TABLET (FP) PO SCH (10:22)
[2022-03-27] MEDS ORDERED: METOPROLOL TARTRATE 25 MG TABLET (FP) PO SCH (11:30)
[2022-03-27] MEDS ORDERED: METOPROLOL TARTRATE 25 MG TABLET (FP) PO ONE ×2 (11:30→13:30)
[2022-03-27] MEDS: THIAMINE HCL 100 MG TABLET (FP) PO SCH (22:45)
[2022-03-27] MEDS: MELATONIN 5 MG TABLETS PO SCH (23:28)
[2022-03-28] MEDS: METHOCARBAMOL 500 MG TABLET PO PRN ×2 (01:07→22:18)
[2022-03-28] MEDS: chlordiazePOXIDE HCL 10 MG CAPSULE PO SCH ×2 (06:29→17:59)
[2022-03-28] MEDS: PRENATAL VITAMINS W/ FOLIC ACID TABLET (FP) PO SCH (09:51)
[2022-03-28] MEDS: THIAMINE HCL 100 MG TABLET (FP) PO SCH (22:17)
[2022-03-28] MEDS: MELATONIN 5 MG TABLETS PO SCH (22:17)
[2022-03-28] MEDS: hydrOXYzine PAMOATE 25 MG CAPSULE (FP) PO PRN (22:18)
[2022-03-29] MEDS ORDERED: chlordiazePOXIDE HCL 10 MG CAPSULE PO ONE (05:00)
[2022-03-29 09:19] VITALS: BP 135/86; PULSE 91; RESP 19; TEMP 98.1
[2022-03-29] MEDS: PRENATAL VITAMINS W/ FOLIC ACID TABLET (FP) PO SCH (10:30)
== END 2022-03-29 11:17 | disposition other institution (70) | DRG 774 ==
LOC: YASAS 13:50 → Y3N 18:09
PROVIDERS: ADMIT Allergy & Immunology; ATTEND Surgery
PROC: HZ2ZZZZ Detoxification Services for Substance Abuse Treatment (ICD-10-PCS; principal; 2022-03-23)
DX: F10.230 Alcohol dependence with withdrawal, uncomplicated (principal); F14.20 Cocaine dependence, uncomplicated; F16.20 Hallucinogen dependence, uncomplicated; F12.20 Cannabis dependence, uncomplicated; I10 Essential (primary) hypertension; Z87.891 Personal history of nicotine dependence; Z87.438 Personal history of other diseases of male genital organs
CPT/HCPCS: 36415; 80053; 82962; 85027; 86593; 86780; 87811; C9803-CS; U0003; U0005

== ENCOUNTER 2022-04-20 11:02 | Inpatient (IN) | payer OTHER ==
[2022-04-20 12:48] VITALS: BMI 25.6
[2022-04-20] MEDS ORDERED: ACETAMINOPHEN 325 MG TABLET (FP) PO PRN ×2 (13:09)
[2022-04-20] MEDS ORDERED: NICOTINE 10 MG CARTRIDGE (INHALER) IH PRN (13:09)
[2022-04-20] MEDS ORDERED: MAG HYDROX/AL HYDROX/SIMETH 30 ML UNIT-DOSE CUP PO PRN (13:09)
[2022-04-20] MEDS ORDERED: BENZOCAINE/MENTHOL (CHLORASEPTIC ) LOZENGE MM PRN (13:09)
[2022-04-20] MEDS ORDERED: MAGNESIUM HYDROX 2400MG/30ML ORAL SUSPENSION 30 ML CUP PO PRN (13:09)
[2022-04-20] MEDS ORDERED: LOPERAMIDE HCL 2 MG CAPSULE PO PRN (13:09)
[2022-04-20] MEDS ORDERED: POLYETHYLENE GLYCOL (HEALTHYLAX) 3350 17 GM PACKET PO PRN (13:09)
[2022-04-20] MEDS ORDERED: IBUPROFEN 600 MG TABLET (FP) PO PRN (13:09)
[2022-04-20] MEDS ORDERED: IBUPROFEN 400 MG TABLET (FP) PO PRN (13:09)
[2022-04-20] MEDS ORDERED: BISMUTH SUBSALICYLATE 262 MG/15 ML BTL PO PRN (13:09)
[2022-04-20] MEDS ORDERED: NALOXONE HCL (KLOXXADO) 8 MG SPRAY NS PRN (13:09)
[2022-04-20] MEDS ORDERED: ONDANSETRON *ODT* 4 MG TABLET SL PRN (13:09)
[2022-04-20] MEDS ORDERED: DICYCLOMINE HCL 10 MG CAPSULE PO PRN (13:09)
[2022-04-20] MEDS: PRENATAL VITAMINS W/ FOLIC ACID TABLET (FP) PO SCH (13:57)
[2022-04-20 17:20] LABS: CALCIUM 8.6 mg/dL (8.5-10.1); HEMATOCRIT 43.3 % (35.4-49); HEMOGLOBIN 13.6 GM/dL (11.7-16.9); MCH 26.3 pg (25.7-33.7); MCHC 31.4 g/dl (32.0-35.9); MEAN CELL VOLUME 83.7 fl (80-96); MEAN PLT VOLUME 7.8 fl (7.5-11.1); PLATELET COUNT 250 10^3/uL (134-434); RBC 5.17 M/mm3 (4.00-5.60); RDW 18.5 % (11.9-15.9); WHITE BLOOD COUNT 5.4 K/mm3 (4.0-10.0)
[2022-04-20 17:24] LABS: CREATININE 1.1 mg/dL (0.55-1.3)
[2022-04-20 17:25] LABS: BILIRUBIN,TOTAL 0.3 mg/dL (0.2-1)
[2022-04-20 17:26] LABS: TOT PROT 5.8 g/dl (6.4-8.2)
[2022-04-20] MEDS: chlordiazePOXIDE HCL 25 MG CAPSULE PO SCH ×2 (17:30→22:13)
[2022-04-20] MEDS ORDERED: chlordiazePOXIDE HCL 25 MG CAPSULE PO PRN (17:43)
[2022-04-20] MEDS ORDERED: MELATONIN 5 MG TABLETS PO SCH (22:00)
[2022-04-20] MEDS: THIAMINE HCL 100 MG TABLET (FP) PO SCH (22:13)
[2022-04-20] MEDS: SUVOREXANT 10 MG TABLET PO PRN (22:14)
[2022-04-21] MEDS: chlordiazePOXIDE HCL 25 MG CAPSULE PO SCH ×4 (06:00→22:21)
[2022-04-21] MEDS: PRENATAL VITAMINS W/ FOLIC ACID TABLET (FP) PO SCH (10:26)
[2022-04-21] MEDS: METHOCARBAMOL 500 MG TABLET PO PRN (22:21)
[2022-04-21] MEDS: SUVOREXANT 10 MG TABLET PO PRN (22:21)
[2022-04-21] MEDS: THIAMINE HCL 100 MG TABLET (FP) PO SCH (22:21)
[2022-04-22] MEDS: chlordiazePOXIDE HCL 25 MG CAPSULE PO SCH ×4 (05:55→22:34)
[2022-04-22] MEDS: PRENATAL VITAMINS W/ FOLIC ACID TABLET (FP) PO SCH (10:48)
[2022-04-22] MEDS: SUVOREXANT 10 MG TABLET PO PRN (22:24)
[2022-04-22] MEDS: THIAMINE HCL 100 MG TABLET (FP) PO SCH (22:26)
[2022-04-22] MEDS: METHOCARBAMOL 500 MG TABLET PO PRN (22:34)
[2022-04-23] MEDS: chlordiazePOXIDE HCL 10 MG CAPSULE PO SCH ×4 (06:11→22:12)
[2022-04-23] MEDS: PRENATAL VITAMINS W/ FOLIC ACID TABLET (FP) PO SCH (10:32)
[2022-04-23] MEDS: SUVOREXANT 10 MG TABLET PO PRN (21:07)
[2022-04-23] MEDS: THIAMINE HCL 100 MG TABLET (FP) PO SCH (22:12)
[2022-04-23] MEDS: METHOCARBAMOL 500 MG TABLET PO PRN (22:12)
[2022-04-24] MEDS: chlordiazePOXIDE HCL 10 MG CAPSULE PO SCH ×2 (05:45→18:02)
[2022-04-24] MEDS ORDERED: cloNIDine HCL 0.1 MG TABLET PO ONE ×2 (07:39→11:41)
[2022-04-24] MEDS: PRENATAL VITAMINS W/ FOLIC ACID TABLET (FP) PO SCH (10:30)
[2022-04-24] MEDS ORDERED: SUVOREXANT 10 MG TABLET PO PRN (22:00)
[2022-04-24] MEDS: METHOCARBAMOL 500 MG TABLET PO PRN (22:20)
[2022-04-24] MEDS: THIAMINE HCL 100 MG TABLET (FP) PO SCH (22:20)
[2022-04-25] MEDS ORDERED: chlordiazePOXIDE HCL 10 MG CAPSULE PO ONE (05:00)
[2022-04-25] MEDS: PRENATAL VITAMINS W/ FOLIC ACID TABLET (FP) PO SCH (09:31)
[2022-04-25 16:53] VITALS: BP 141/91; PULSE 84; RESP 16; TEMP 98.4
== END 2022-04-25 18:10 | disposition other institution (70) | DRG 774 ==
LOC: YASAS 11:02 → Y3N 13:16
PROVIDERS: ADMIT Allergy & Immunology; ATTEND Surgery
PROC: HZ2ZZZZ Detoxification Services for Substance Abuse Treatment (ICD-10-PCS; principal; 2022-04-20)
DX: F10.230 Alcohol dependence with withdrawal, uncomplicated (principal); F14.20 Cocaine dependence, uncomplicated; F12.20 Cannabis dependence, uncomplicated; F17.213 Nicotine dependence, cigarettes, with withdrawal; F19.282 Other psychoactive substance dependence with psychoactive substance-induced sleep disorder; F19.24 Other psychoactive substance dependence with psychoactive substance-induced mood disorder; I10 Essential (primary) hypertension; Z86.19 Personal history of other infectious and parasitic diseases; Z56.0 Unemployment, unspecified; Z59.00 Homelessness unspecified
CPT/HCPCS: 36415; 80053; 83036; 85027; 86593; 86780; C9803-CS; U0003; U0005

== ENCOUNTER 2022-04-25 18:33 | Inpatient (IN) | payer OTHER ==
[2022-04-25] MEDS ORDERED: P-EPHED 60MG/TRIPROLIDI 2.5MG TABLET PO PRN (19:01)
[2022-04-25] MEDS ORDERED: MAG HYDROX/AL HYDROX/SIMETH 30 ML UNIT-DOSE CUP PO PRN (19:01)
[2022-04-25] MEDS ORDERED: LOPERAMIDE HCL 2 MG CAPSULE PO PRN (19:01)
[2022-04-25] MEDS ORDERED: MAGNESIUM HYDROX 2400MG/30ML ORAL SUSPENSION 30 ML CUP PO PRN (19:01)
[2022-04-25] MEDS ORDERED: BENZOCAINE/MENTHOL (CHLORASEPTIC ) LOZENGE MM PRN (19:01)
[2022-04-25] MEDS ORDERED: POLYETHYLENE GLYCOL (HEALTHYLAX) 3350 17 GM PACKET PO PRN (19:01)
[2022-04-25] MEDS ORDERED: NICOTINE 10 MG CARTRIDGE (INHALER) IH PRN (19:01)
[2022-04-25] MEDS ORDERED: IBUPROFEN 400 MG TABLET (FP) PO PRN (19:01)
[2022-04-25] MEDS ORDERED: NICOTINE POLACRILEX 2 MG GUM BUC PRN (19:01)
[2022-04-25] MEDS ORDERED: ACETAMINOPHEN 325 MG TABLET (FP) PO PRN (19:01)
[2022-04-25] MEDS ORDERED: guaiFENesin 200 MG/10 ML 10 ML UNIT-DOSE CUPS PO PRN (19:01)
[2022-04-25] MEDS: MELATONIN 5 MG TABLETS PO SCH (21:23)
[2022-04-25] MEDS: THIAMINE HCL 100 MG TABLET (FP) PO SCH (21:24)
[2022-04-25 22:58] VITALS: RESP 18
[2022-04-26] MEDS: hydrOXYzine PAMOATE 25 MG CAPSULE (FP) PO PRN ×2 (03:51→21:44)
[2022-04-26] MEDS: PRENATAL VITAMINS W/ FOLIC ACID TABLET (FP) PO SCH (10:00)
[2022-04-26] MEDS: MELATONIN 5 MG TABLETS PO SCH (21:44)
[2022-04-26] MEDS: THIAMINE HCL 100 MG TABLET (FP) PO SCH (21:44)
[2022-04-27] MEDS: PRENATAL VITAMINS W/ FOLIC ACID TABLET (FP) PO SCH (10:05)
[2022-04-27] MEDS: MELATONIN 5 MG TABLETS PO SCH (21:21)
[2022-04-27] MEDS: cloNIDine HCL 0.1 MG TABLET PO SCH (21:21)
[2022-04-27] MEDS: THIAMINE HCL 100 MG TABLET (FP) PO SCH (21:22)
[2022-04-28 06:42] VITALS: BP 139/96; PULSE 80; TEMP 97.5
[2022-04-28] MEDS: PRENATAL VITAMINS W/ FOLIC ACID TABLET (FP) PO SCH (09:35)
[2022-04-28] MEDS: cloNIDine HCL 0.1 MG TABLET PO SCH (09:35)
== END 2022-04-28 09:30 | disposition home or self-care (01) | DRG 772 ==
LOC: YASAS 18:33 → Y3W 18:34
PROVIDERS: ADMIT Allergy & Immunology; ATTEND Psychiatry & Neurology Pain Medicine
PROC: HZ42ZZZ Group Counseling for Substance Abuse Treatment, Cognitive-Behavioral (ICD-10-PCS; principal; 2022-04-25)
DX: F10.20 Alcohol dependence, uncomplicated (principal); F14.20 Cocaine dependence, uncomplicated; F12.20 Cannabis dependence, uncomplicated; F17.210 Nicotine dependence, cigarettes, uncomplicated; F41.8 Other specified anxiety disorders; I10 Essential (primary) hypertension; R76.11 Nonspecific reaction to tuberculin skin test without active tuberculosis

== ENCOUNTER 2022-06-17 12:34 | Inpatient (IN) | payer OTHER ==
[2022-06-17 14:01] VITALS: BMI 26.4
[2022-06-17] MEDS ORDERED: POLYETHYLENE GLYCOL (HEALTHYLAX) 3350 17 GM PACKET PO PRN (14:27)
[2022-06-17] MEDS ORDERED: ACETAMINOPHEN 325 MG TABLET (FP) PO PRN ×2 (14:27)
[2022-06-17] MEDS ORDERED: MAGNESIUM HYDROX 2400MG/30ML ORAL SUSPENSION 30 ML CUP PO PRN (14:27)
[2022-06-17] MEDS ORDERED: IBUPROFEN 400 MG TABLET (FP) PO PRN (14:27)
[2022-06-17] MEDS ORDERED: NICOTINE 10 MG CARTRIDGE (INHALER) IH PRN (14:27)
[2022-06-17] MEDS ORDERED: BISMUTH SUBSALICYLATE 262 MG/15 ML BTL PO PRN (14:27)
[2022-06-17] MEDS ORDERED: DICYCLOMINE HCL 10 MG CAPSULE PO PRN (14:27)
[2022-06-17] MEDS ORDERED: NALOXONE HCL (KLOXXADO) 8 MG SPRAY NS PRN (14:27)
[2022-06-17] MEDS ORDERED: BENZOCAINE/MENTHOL (CHLORASEPTIC ) LOZENGE MM PRN (14:27)
[2022-06-17] MEDS ORDERED: ONDANSETRON *ODT* 4 MG TABLET SL PRN (14:27)
[2022-06-17] MEDS ORDERED: MAG HYDROX/AL HYDROX/SIMETH 30 ML UNIT-DOSE CUP PO PRN (14:27)
[2022-06-17] MEDS: PRENATAL VITAMINS W/ FOLIC ACID TABLET (FP) PO SCH (15:12)
[2022-06-17] MEDS: METHOCARBAMOL 500 MG TABLET PO PRN (15:15)
[2022-06-17] MEDS: chlordiazePOXIDE HCL 25 MG CAPSULE PO SCH ×2 (17:57→22:41)
[2022-06-17] MEDS: IBUPROFEN 600 MG TABLET (FP) PO PRN (18:30)
[2022-06-17] MEDS ORDERED: MELATONIN 5 MG TABLETS PO SCH (22:00)
[2022-06-17] MEDS: THIAMINE HCL 100 MG TABLET (FP) PO SCH (22:41)
[2022-06-18] MEDS: chlordiazePOXIDE HCL 25 MG CAPSULE PO SCH ×4 (05:44→22:39)
[2022-06-18] MEDS: PRENATAL VITAMINS W/ FOLIC ACID TABLET (FP) PO SCH (11:08)
[2022-06-18 11:37] LABS: HEMATOCRIT 39.9 % (35.4-49); HEMOGLOBIN 12.8 GM/dL (11.7-16.9); MCH 27.4 pg (25.7-33.7); MCHC 31.9 g/dl (32.0-35.9); MEAN CELL VOLUME 85.8 fl (80-96); MEAN PLT VOLUME 7.7 fl (7.5-11.1); PLATELET COUNT 210 10^3/uL (134-434); RBC 4.66 M/mm3 (4.00-5.60); RDW 16.8 % (11.9-15.9); WHITE BLOOD COUNT 5.4 K/mm3 (4.0-10.0)
[2022-06-18] MEDS ORDERED: DOCUSATE SODIUM 100 MG CAPSULE (FP) PO ONE (12:45)
[2022-06-18] MEDS ORDERED: LACTULOSE 20 GM/30 ML UDC (FOR ORAL USE ONLY) PO ONE (12:45)
[2022-06-18 13:00] LABS: ALBUMIN 2.8 g/dl (3.4-5.0); BLOOD UREA NITROGEN 16.9 mg/dL (7-18); CALCIUM 8.6 mg/dL (8.5-10.1)
[2022-06-18 13:04] LABS: BILIRUBIN,TOTAL 0.6 mg/dL (0.2-1); TOT PROT 5.3 g/dl (6.4-8.2)
[2022-06-18] MEDS ORDERED: cloNIDine HCL 0.1 MG TABLET PO ONE (21:56)
[2022-06-18] MEDS: THIAMINE HCL 100 MG TABLET (FP) PO SCH (22:38)
[2022-06-18] MEDS: SUVOREXANT 10 MG TABLET PO PRN (22:40)
[2022-06-19] MEDS: chlordiazePOXIDE HCL 25 MG CAPSULE PO SCH ×4 (06:07→22:30)
[2022-06-19] MEDS ORDERED: BISACODYL 5 MG TABLET.DR (FP) PO ONE (09:34)
[2022-06-19] MEDS ORDERED: LACTULOSE 20 GM/30 ML UDC (FOR ORAL USE ONLY) PO ONE (09:34)
[2022-06-19] MEDS: PRENATAL VITAMINS W/ FOLIC ACID TABLET (FP) PO SCH (10:57)
[2022-06-19] MEDS: HYDROCHLOROTHIAZIDE 12.5 MG CAPSULE (FP) PO SCH (10:57)
[2022-06-19] MEDS: IBUPROFEN 600 MG TABLET (FP) PO PRN (17:49)
[2022-06-19] MEDS: SUVOREXANT 10 MG TABLET PO PRN (22:29)
[2022-06-19] MEDS: THIAMINE HCL 100 MG TABLET (FP) PO SCH (22:30)
[2022-06-20] MEDS: chlordiazePOXIDE HCL 10 MG CAPSULE PO SCH ×4 (05:21→22:40)
[2022-06-20] MEDS: METHOCARBAMOL 500 MG TABLET PO PRN ×2 (05:21→17:52)
[2022-06-20] MEDS: IBUPROFEN 600 MG TABLET (FP) PO PRN (05:22)
[2022-06-20] MEDS: HYDROCHLOROTHIAZIDE 12.5 MG CAPSULE (FP) PO SCH (10:36)
[2022-06-20] MEDS: PRENATAL VITAMINS W/ FOLIC ACID TABLET (FP) PO SCH (10:36)
[2022-06-20] MEDS ORDERED: cloNIDine HCL 0.1 MG TABLET PO ONE (15:58)
[2022-06-20 21:15] VITALS: RESP 18
[2022-06-20] MEDS: THIAMINE HCL 100 MG TABLET (FP) PO SCH (22:39)
[2022-06-20] MEDS: SUVOREXANT 10 MG TABLET PO PRN (22:39)
[2022-06-20] MEDS: LOPERAMIDE HCL 2 MG CAPSULE PO PRN (22:43)
[2022-06-21] MEDS ORDERED: chlordiazePOXIDE HCL 10 MG CAPSULE PO SCH (05:00)
[2022-06-21] MEDS: LOPERAMIDE HCL 2 MG CAPSULE PO PRN (05:38)
[2022-06-21 09:23] VITALS: BP 138/83; PULSE 90; TEMP 99.1
[2022-06-21] MEDS: HYDROCHLOROTHIAZIDE 12.5 MG CAPSULE (FP) PO SCH (10:30)
[2022-06-21] MEDS: PRENATAL VITAMINS W/ FOLIC ACID TABLET (FP) PO SCH (10:30)
[2022-06-22] MEDS ORDERED: chlordiazePOXIDE HCL 10 MG CAPSULE PO ONE (05:00)
== END 2022-06-21 10:42 | disposition home or self-care (01) | DRG 774 ==
LOC: YASAS 12:34 → Y6N 14:35
PROVIDERS: ADMIT Allergy & Immunology; ATTEND Family Medicine
PROC: HZ2ZZZZ Detoxification Services for Substance Abuse Treatment (ICD-10-PCS; principal; 2022-06-17)
DX: F10.230 Alcohol dependence with withdrawal, uncomplicated (principal); F14.20 Cocaine dependence, uncomplicated; F12.20 Cannabis dependence, uncomplicated; F19.282 Other psychoactive substance dependence with psychoactive substance-induced sleep disorder; F19.24 Other psychoactive substance dependence with psychoactive substance-induced mood disorder; F41.9 Anxiety disorder, unspecified; F32.A Depression, unspecified; I10 Essential (primary) hypertension; K59.01 Slow transit constipation; R73.9 Hyperglycemia, unspecified; Z86.19 Personal history of other infectious and parasitic diseases; Z86.11 Personal history of tuberculosis; Z56.0 Unemployment, unspecified; Z59.00 Homelessness unspecified
CPT/HCPCS: 36415; 80053; 85027; 86593; 86780; 87811; C9803-CS; U0003; U0005

== ENCOUNTER 2024-02-09 12:17 | Inpatient (IN) | payer OTHER ==
[2024-02-09 13:33] VITALS: BMI 26.4
[2024-02-09] MEDS ORDERED: LOPERAMIDE HCL 2 MG CAPSULE PO PRN (15:10)
[2024-02-09] MEDS ORDERED: hydrOXYzine PAMOATE 25 MG CAPSULE (FP) PO PRN (15:10)
[2024-02-09] MEDS ORDERED: NALOXONE (NARCAN) HCL 4 MG/0.1 ML SPRAY NS PRN (15:10)
[2024-02-09] MEDS ORDERED: guaiFENesin 600 MG TABLET.ER (FP) PO PRN (15:10)
[2024-02-09] MEDS ORDERED: POLYETHYLENE GLYCOL (HEALTHYLAX) 3350 17 GM PACKET PO PRN (15:10)
[2024-02-09] MEDS ORDERED: NALOXONE HCL 0.4 MG/ML VIAL IM PRN (15:10)
[2024-02-09] MEDS ORDERED: BENZONATATE 200 MG CAPSULE PO PRN (15:10)
[2024-02-09] MEDS ORDERED: ACETAMINOPHEN 325 MG TABLET (FP) PO PRN (15:10)
[2024-02-09] MEDS ORDERED: MAG HYDROX/AL HYDROX/SIMETH 30 ML UNIT-DOSE CUP PO PRN (15:10)
[2024-02-09] MEDS ORDERED: IBUPROFEN 600 MG TABLET (FP) PO PRN (15:10)
[2024-02-09] MEDS ORDERED: BENZOCAINE/MENTHOL (CHLORASEPTIC ) LOZENGE MM PRN (15:10)
[2024-02-09] MEDS ORDERED: MAGNESIUM HYDROX 2400MG/30ML ORAL SUSPENSION 30 ML CUP PO PRN (15:10)
[2024-02-09] MEDS ORDERED: IBUPROFEN 400 MG TABLET (FP) PO PRN (15:10)
[2024-02-09] MEDS: PRENATAL VITAMINS W/ FOLIC ACID TABLET (FP) PO SCH (15:48)
[2024-02-09] MEDS: ASPIRIN COATED 81 MG TABLET.EC PO SCH (17:45)
[2024-02-09] MEDS: THIAMINE 100 MG TABLET PO SCH (21:30)
[2024-02-09] MEDS: MELATONIN 5 MG TABLETS PO SCH (21:31)
[2024-02-10] MEDS: FUROSEMIDE 20 MG TABLET (FP) PO SCH (10:55)
[2024-02-10 11:15] LABS: HEMATOCRIT 39.5 % (35.4-49); HEMOGLOBIN 12.9 GM/dL (11.7-16.9); MCH 27.6 pg (25.7-33.7); MCHC 32.5 g/dl (32.0-35.9); MEAN CELL VOLUME 84.8 fl (80-96); PLATELET COUNT 208 10^3/uL (134-434); RBC 4.66 M/mm3 (4.00-5.60); RDW 16.1 % (11.9-15.9); WHITE BLOOD COUNT 5.2 K/mm3 (4.0-10.0)
[2024-02-10 11:43] LABS: CHLORIDE 105 mmol/L (98-107); POTASSIUM 3.9 mmol/L (3.5-5.1); SODIUM 138 mmol/L (136-145)
[2024-02-10 11:53] LABS: CALCIUM 8.9 mg/dL (8.5-10.1)
[2024-02-10 11:54] LABS: ANION GAP 7 mmol/L (4-13); BLOOD UREA NITROGEN 20.2 mg/dL (7-18); CO2 27 mmol/L (21-32); GLUCOSE,RANDOM 109 mg/dL (74-106)
[2024-02-10 11:55] LABS: SGOT/AST 17 U/L (15-37); SGPT/ALT 17 U/L (13-61)
[2024-02-10 11:56] LABS: CREATININE 1.2 mg/dL (0.55-1.3)
[2024-02-10 11:57] LABS: BILIRUBIN,TOTAL 0.3 mg/dL (0.2-1); TOT PROT 6.2 g/dl (6.4-8.2)
[2024-02-10 11:58] LABS: ALK PHOS 101 U/L (45-117)
[2024-02-10] MEDS: SUVOREXANT 10 MG TABLET PO PRN (21:23)
[2024-02-12 06:33] VITALS: RESP 18
[2024-02-14 07:00] VITALS: BP 148/94; PULSE 68; TEMP 97.5
== END 2024-02-14 08:48 | disposition home or self-care (01) | DRG 772 ==
LOC: YASAS 12:17 → Y3NR 15:49 → Y3E 02-10 11:59
PROVIDERS: ADMIT Psychiatry & Neurology Pain Medicine; ATTEND Psychiatry & Neurology Pain Medicine
PROC: HZ42ZZZ Group Counseling for Substance Abuse Treatment, Cognitive-Behavioral (ICD-10-PCS; principal; 2024-02-09)
DX: F10.20 Alcohol dependence, uncomplicated (principal); F14.20 Cocaine dependence, uncomplicated; F12.20 Cannabis dependence, uncomplicated; F17.210 Nicotine dependence, cigarettes, uncomplicated; F19.282 Other psychoactive substance dependence with psychoactive substance-induced sleep disorder; F19.24 Other psychoactive substance dependence with psychoactive substance-induced mood disorder; E72.20 Disorder of urea cycle metabolism, unspecified; I10 Essential (primary) hypertension; K59.01 Slow transit constipation; Z86.11 Personal history of tuberculosis; Z86.19 Personal history of other infectious and parasitic diseases
CPT/HCPCS: 36415; 80053; 80305; 80307; 82140; 85027; 86593; 86780; 87811; 93005; 93010

== ENCOUNTER 2024-08-04 13:01 | Inpatient (IN) | payer OTHER ==
[2024-08-04 13:42] VITALS: BMI 24.3
[2024-08-04] MEDS ORDERED: IBUPROFEN 600 MG TABLET (FP) PO PRN (13:56)
[2024-08-04] MEDS ORDERED: BENZONATATE 200 MG CAPSULE PO PRN (13:56)
[2024-08-04] MEDS ORDERED: MAGNESIUM HYDROX 2400MG/30ML ORAL SUSPENSION 30 ML CUP PO PRN (13:56)
[2024-08-04] MEDS ORDERED: BISMUTH SUBSALICYLATE 262 MG/15 ML BTL PO PRN (13:56)
[2024-08-04] MEDS ORDERED: MAG HYDROX/AL HYDROX/SIMETH 30 ML UNIT-DOSE CUP PO PRN (13:56)
[2024-08-04] MEDS ORDERED: DICYCLOMINE HCL 10 MG CAPSULE PO PRN (13:56)
[2024-08-04] MEDS ORDERED: chlordiazePOXIDE HCL 25 MG CAPSULE PO PRN (13:56)
[2024-08-04] MEDS ORDERED: NICOTINE POLACRILEX 2 MG GUM BUC PRN (13:56)
[2024-08-04] MEDS ORDERED: hydrOXYzine PAMOATE 25 MG CAPSULE (FP) PO PRN (13:56)
[2024-08-04] MEDS ORDERED: ACETAMINOPHEN 325 MG TABLET (FP) PO PRN (13:56)
[2024-08-04] MEDS ORDERED: ONDANSETRON *ODT* 4 MG TABLET SL PRN (13:56)
[2024-08-04] MEDS ORDERED: POLYETHYLENE GLYCOL (HEALTHYLAX) 3350 17 GM PACKET PO PRN (13:56)
[2024-08-04] MEDS ORDERED: NALOXONE (NARCAN) HCL 4 MG/0.1 ML SPRAY NS PRN (13:56)
[2024-08-04] MEDS ORDERED: BENZOCAINE/MENTHOL (CHLORASEPTIC ) LOZENGE MM PRN (13:56)
[2024-08-04] MEDS: PRENATAL VITAMINS W/ FOLIC ACID TABLET (FP) PO SCH (16:32)
[2024-08-04] MEDS: MELATONIN 5 MG TABLETS PO SCH (22:24)
[2024-08-04] MEDS: THIAMINE 100 MG TABLET PO SCH (22:24)
[2024-08-04] MEDS: chlordiazePOXIDE HCL 25 MG CAPSULE PO SCH (22:25)
[2024-08-04] MEDS: METHOCARBAMOL 500 MG TABLET PO PRN (22:25)
[2024-08-05] MEDS: LOPERAMIDE HCL 2 MG CAPSULE PO PRN (18:37)
[2024-08-05] MEDS: SUVOREXANT 10 MG TABLET PO PRN (22:15)
[2024-08-06] MEDS: chlordiazePOXIDE HCL 25 MG CAPSULE PO SCH (05:22)
[2024-08-06] MEDS ORDERED: ALBUTEROL SO4 HFA INHALER IH ONE (09:33)
[2024-08-06] MEDS: guaiFENesin 600 MG TABLET.ER (FP) PO PRN (10:17)
[2024-08-06] MEDS: ALBUTEROL SO4 HFA INHALER IH PRN (10:48)
[2024-08-07] MEDS ORDERED: chlordiazePOXIDE HCL 10 MG CAPSULE PO PRN
[2024-08-07] MEDS: chlordiazePOXIDE HCL 10 MG CAPSULE PO SCH ×2 (05:50→18:45)
[2024-08-07] MEDS: IBUPROFEN 400 MG TABLET (FP) PO PRN (06:11)
[2024-08-07 20:48] VITALS: TEMP 98
[2024-08-07] MEDS: amLODIPine BESYLATE 5 MG TABLET (FP) PO ONE (22:17)
[2024-08-08 03:22] VITALS: BP 143/113; PULSE 87; RESP 17
[2024-08-08] MEDS: chlordiazePOXIDE HCL 10 MG CAPSULE PO SCH (06:03)
[2024-08-09] MEDS ORDERED: chlordiazePOXIDE HCL 10 MG CAPSULE PO ONE (05:00)
== END 2024-08-08 12:10 | disposition short-term general hospital (02) | DRG 774 ==
LOC: YASAS 13:01 → Y3N 14:13
PROVIDERS: ADMIT Allergy & Immunology; ATTEND Allergy & Immunology
PROC: HZ2ZZZZ Detoxification Services for Substance Abuse Treatment (ICD-10-PCS; principal; 2024-08-04)
DX: F10.230 Alcohol dependence with withdrawal, uncomplicated (principal); F14.20 Cocaine dependence, uncomplicated; F12.20 Cannabis dependence, uncomplicated; F17.210 Nicotine dependence, cigarettes, uncomplicated; F19.282 Other psychoactive substance dependence with psychoactive substance-induced sleep disorder; F19.24 Other psychoactive substance dependence with psychoactive substance-induced mood disorder; I11.0 Hypertensive heart disease with heart failure; I50.9 Heart failure, unspecified; J45.909 Unspecified asthma, uncomplicated; R06.02 Shortness of breath
CPT/HCPCS: 0241U-QW; 80305; 80307; 93005; 93010

== ENCOUNTER 2024-08-08 04:13 | Observation (INO) | payer OTHER ==
[2024-08-08 04:34] VITALS: TEMP 97.9; BMI 26.4
[2024-08-08] MEDS ORDERED: FUROSEMIDE 40 MG/4 ML INJECTABLE VIAL ONE (05:14)
[2024-08-08] MEDS: FUROSEMIDE 100 MG/10 ML INJECTABLE VIAL IVPB ONE (05:26)
[2024-08-08 05:29] LABS: HEMATOCRIT 41.5 % (35.4-49); HEMOGLOBIN 13.2 GM/dL (11.7-16.9); MCH 27.7 pg (25.7-33.7); MCHC 31.9 g/dl (32.0-35.9); MEAN PLT VOLUME 7.5 fl (7.5-11.1); PLATELET COUNT 243 10^3/uL (134-434); RBC 4.77 M/mm3 (4.00-5.60); RDW 17.8 % (11.9-15.9)
[2024-08-08 05:30] LABS: BASO % 0.9 % (0-2.0); EOS % 2.4 % (0-4.5); LYMPH % 18.3 % (8-40); MONO % 5.1 % (3.8-10.2); NEUT % 73.3 % (42.8-82.8)
[2024-08-08 05:54] LABS: POTASSIUM 4.3 mmol/L (3.5-5.1)
[2024-08-08 05:56] LABS: ALBUMIN 2.9 g/dl (3.4-5.0); CALCIUM 8.2 mg/dL (8.5-10.1)
[2024-08-08 05:57] LABS: BLOOD UREA NITROGEN 18.1 mg/dL (7-18)
[2024-08-08 06:00] LABS: CREATININE 1.1 mg/dL (0.55-1.3)
[2024-08-08 06:01] VITALS: BP 155/137; RESP 26
[2024-08-08 06:01] LABS: TOT PROT 6.2 g/dl (6.4-8.2)
[2024-08-08 06:02] LABS: BILIRUBIN,TOTAL 0.3 mg/dL (0.2-1)
[2024-08-08 06:31] LABS: VENOUS BASE EXCESS -1.3 mmol/L (-2-2); VENOUS O2 SATURATION 91.5 % (70-80); VENOUS PCO2 38.9 mmHg (38-52); VENOUS PH 7.395 (7.310-7.410)
[2024-08-08 08:19] VITALS: PULSE 88
[2024-08-08] MEDS ORDERED: MAGNESIUM SULFATE IN WATER 2 GM/50 ML IVPB IVPB ONE (09:38)
[2024-08-08] MEDS: MAGNESIUM 2GM/50ML STERILE WATER IVPB IVPB ONE (10:19)
[2024-08-08] MEDS: NICOTINE 7 MG/24 HOURS TOPICAL PATCH TD SCH (10:19)
== END 2024-08-08 12:00 | disposition left against medical advice (07) ==
LOC: JER 04:13 → JERBED 05:32
PROC: 3E033GC Introduction of Other Therapeutic Substance into Peripheral Vein, Percutaneous Approach (ICD-10-PCS; principal; 2024-08-08)
DX: I11.0 Hypertensive heart disease with heart failure (principal); F12.20 Cannabis dependence, uncomplicated; F10.20 Alcohol dependence, uncomplicated; F14.20 Cocaine dependence, uncomplicated; F17.200 Nicotine dependence, unspecified, uncomplicated
CPT/HCPCS: 36415; 71045-TC-FY; 80053; 82803; 83735; 83880; 84484; 85025; 93005; 93010; 96374; 99285-25; G0378